=== PATIENT | female | born 1950 | race Caucasian/White ===

== ENCOUNTER 2016-10-23 16:25 | Observation (INO) ==
[2016-10-23] MEDS ORDERED: Ipratropium/Albuterol Neb 3 ML IH ONE (16:47)
--- NOTE | 2016-10-23 16:49 | Emergency Department Note ---
Disposition Clinical Impression: Exertional dyspnea, Anginal equivalent Disposition: Admitted As Inpatient Condition: Fair Referrals: Eriberto Covarrubias DO [Primary Care Provider] - Forms: ED Satisfaction Letter Time of Disposition: 17:38 SOB HPI - General Chief Complaint: ED Shortness of Breath/Dyspnea Stated Complaint: SENT FROM pcp soila CHEST TIGHTNESS Time Seen by Provider: 10/23/16 16:37 Source: patient Limitations: no limitations Nursing Notes Reviewed: Yes Vital Signs Reviewed: Yes - History of Present Illness Patient has had exertional dyspnea for the last several days. Seen by the primary care provider and sent in for evaluation. Patient does have a history of asthma however on arrival her lungs are essentially clear. She has no recent history of cardiac workup. She has no history of heart attack in the past. Pt Subjective Complaint: shortness of breath Onset (ago): day(s) Severity: moderate Consistency/Duration: constant Improves with: nothing Worsens with: exertion Known history of: asthma Associated symptoms: Reports: cough. Denies: chest pain, pain with inspiration - Related Data Home Medications Medication Instructions Recorded Confirmed Citalopram 09/27/15 09/27/15 Ferrous Sulfate 09/27/15 09/27/15 GlipiZIDE 09/27/15 09/27/15 Metformin 09/27/15 09/27/15 Montelukast Sodium 09/27/15 09/27/15 Nexium 09/27/15 09/27/15 Proair Respiclick 09/27/15 09/27/15 Symbicort 09/27/15 09/27/15 Valsartan 09/27/15 09/27/15 Previous Rx's Medication Instructions Recorded Cyclobenzaprine [Flexeril] 10 mg PO TID #15 tablet 09/27/15 MethylPREDNISolone [Medrol] 4 mg PO BIDWM #21 tablet 09/27/15 TraMADol [Ultram] 50 mg PO Q6HR PRN #20 tablet 09/27/15 Azithromycin [Zithromax] 250 mg PO DAILY #6 tablet 07/27/16 Benzonatate [Tessalon] 200 mg PO TID PRN #30 capsule 07/27/16 GuaiFENesin ER [Mucinex] 1,200 mg PO BID #20 tbbp.12hr 07/27/16 Allergies Allergy/AdvReac Type Severity Reaction Status Date / Time aspirin AdvReac See Verified 09/27/15 17:37 Comments Penicillins AdvReac See Verified 09/27/15 17:37 Comments Constitutional: Denies: fever, chills, weakness, weight change Eyes: Denies: eye pain, eye discharge, vision change ENT ED: Denies: ear pain, throat pain, dental pain, hearing loss, epistaxis, congestion, dysphagia Cardiovascular: Denies: chest pain, palpitations, dyspnea on exertion, edema, syncope Respiratory: Reports: cough, dyspnea. Denies: wheezes, hemoptysis, stridor Gastrointestinal: Denies: abdominal pain, nausea, vomiting, diarrhea, constipation, hematemesis, melena, hematochezia Genitourinary: Denies: dysuria, frequency, hematuria, discharge Musculoskeletal: Denies: back pain, neck pain, arthralgia, myalgia Integumentary: Denies: rash, abrasion, lesions Neurological: Denies: headache, weakness, numbness, paresthesias, confusion, abnormal gait, vertigo Psychiatric: Denies: anxiety, depression, suicidal thoughts, homicidal thoughts , auditory hallucinations, visual hallucinations Endocrine: Denies: fatigue Hematological/Lymphatic: Denies: easy bleeding, easy bruising Allergic/Immunologic: Denies: facial swelling, urticaria Past Medical History - Past Medical History Medical history: Reports: asthma, diabetes, hyperlipidemia, hypertension Psychiatric history: Reports: no psych history - Social History Smoking Status: Former smoker Smokeless Tobacco Status: No Alcohol use: Reports: unknown Drug use: Reports: none Physical Exam - General Limitations: no limitations General appearance: alert, in no apparent distress - Head Head exam: atraumatic, normocephalic, normal inspection - Eye Eye exam: Present: normal appearance, PERRL, EOMI - ENT ENT exam: normal exam, normal oropharynx, mucous membranes moist - Neck Neck exam: Present: normal inspection, full ROM, trachea midline - Chest Chest inspection: Present: normal inspection, symmetric chest wall rise - Respiratory Respiratory exam: Present: normal lung sounds bilaterally - Cardiovascular Cardiovascular exam: Present: regular rate, normal rhythm, normal heart sounds - Abdominal Exam Abdominal exam: Present: soft, Non-Tender. Absent: tenderness, distention, guarding, rebound, rigidity - Extremities Exam Extremities exam: Present: normal inspection, full ROM. Absent: tenderness, pedal edema - Expanded Lower Extremity Exam Neurovascular/Tendon exam: Absent: motor deficit, sensory deficit, tendon deficit Gait: observed and normal - Back Exam Back exam: Present: normal inspection, full ROM. Absent: tenderness - Neurological Exam Neurological exam: Present: alert, oriented X3 - Psychiatric Psychiatric exam: Present: normal affect, normal mood - Skin Skin exam: Present: warm, dry, intact, normal color Course - Reevaluation(s) Reevaluation #1: Patient has an allergy to aspirin. Time: 17:37 - Consultations Consultation #1: Discussed with Dr. Thakur, admit. Time: 18:03 Vital Signs Temperature 98.2 F 10/23/16 16:27 Pulse Rate 81 10/23/16 16:27 Respiratory Rate 22 10/23/16 16:27 Blood Pressure 132/86 10/23/16 16:27 O2 Sat by Pulse Oximetry 96 10/23/16 16:27 Temperature 98.2 F 10/23/16 16:27 Pulse Rate 81 10/23/16 17:56 Respiratory Rate 18 10/23/16 17:56 Blood Pressure 193/98 10/23/16 17:56 O2 Sat by Pulse Oximetry 97 10/23/16 17:56 Oxygen Delivery Oxygen Delivery Room Air Shortness of Breath/Dyspnea - Lab Data Result diagrams: 10/23/16 16:48 10/23/16 16:48 Lab Results 10/23/16 10/23/16 10/23/16 Range/Units 16:48 16:48 16:48 WBC 6.4 (4.3-11.1) K/mcL RBC 4.54 (3.82-4.97) M/mcL Hgb 13.5 (11.5-15.4) g/dL Hct 41.8 (35.3-44.9) % MCV 92.1 (83.0-100.0) fL MCH 29.7 (28.0-33.3) pg MCHC 32.3 (31.6-35.5) g/dL RDW 13.8 (11.5-14.5) % Plt Count 132 L (140-400) K/mcL MPV 11.5 (9.4-12.4) fL Immature Gran % 0.5 (0-4) % Seg Neutrophils % 72.0 % Lymphocytes % 17.6 % Monocytes % 8.8 % Eosinophils % 0.8 % Basophils % 0.3 % Neutrophils # 4.6 (1.6-8.9) K/mcL Lymphocytes # 1.1 (0.6-4.6) K/mcL Monocytes # 0.6 (0.0-1.3) K/mcL Eosinophils # 0.1 (0.0-0.6) K/mcL Basophils # 0.0 (0.0-0.2) K/mcL PT 13.3 H (9.4-12.1) Seconds INR 1.2 APTT 32.9 (26.0-36.0) Seconds Sodium 136 (136-145) mEq/L Potassium 4.0 (3.5-4.5) mEq/L Chloride 99 (98-109) mEq/L Carbon Dioxide 24 (19-29) mEq/L BUN 12 (7-20) mg/dL Creatinine 0.72 (0.57-1.11) mg/dL Est GFR ( Amer) > 60 (> 60) Est GFR (Non-Af Amer) > 60 (> 60) BUN/Creatinine Ratio 17 (6-26) Glucose 138 H (70-99) mg/dL Calculated Osmolality 284 (280-300) Calcium 9.0 (8.6-10.8) mg/dL Troponin I (0-0.03) ng/mL B-Natriuretic Peptide (0-100) pg/mL 10/23/16 10/23/16 Range/Units 16:48 16:48 WBC (4.3-11.1) K/mcL RBC (3.82-4.97) M/mcL Hgb (11.5-15.4) g/dL Hct (35.3-44.9) % MCV (83.0-100.0) fL MCH (28.0-33.3) pg MCHC (31.6-35.5) g/dL RDW (11.5-14.5) % Plt Count (140-400) K/mcL MPV (9.4-12.4) fL Immature Gran % (0-4) % Seg Neutrophils % % Lymphocytes % % Monocytes % % Eosinophils % % Basophils % % Neutrophils # (1.6-8.9) K/mcL Lymphocytes # (0.6-4.6) K/mcL Monocytes # (0.0-1.3) K/mcL Eosinophils # (0.0-0.6) K/mcL Basophils # (0.0-0.2) K/mcL PT (9.4-12.1) Seconds INR APTT (26.0-36.0) Seconds Sodium (136-145) mEq/L Potassium (3.5-4.5) mEq/L Chloride (98-109) mEq/L Carbon Dioxide (19-29) mEq/L BUN (7-20) mg/dL Creatinine (0.57-1.11) mg/dL Est GFR ( Amer) (> 60) Est GFR (Non-Af Amer) (> 60) BUN/Creatinine Ratio (6-26) Glucose (70-99) mg/dL Calculated Osmolality (280-300) Calcium (8.6-10.8) mg/dL Troponin I 0.05 H* (0-0.03) ng/mL B-Natriuretic Peptide 1438 H (0-100) pg/mL - Radiology Data Radiology results reviewed: Yes I reviewed the patient's radiology results. - EKG Data EKG attestation: Yes I reviewed and interpreted this EKG. EKG shows normal: Reports: sinus rhythm Rate: Reports: normal Rhythm: Reports: NSR Interpretation: Reports: no acute changes
[2016-10-23 17:01] LABS: Basophils % 0.3 %; Eosinophils # 0.1 K/mcL (0.0-0.6); Eosinophils % 0.8 %; Hematocrit 41.8 % (35.3-44.9); Hemoglobin 13.5 g/dL (11.5-15.4); Immature Granulocytes % 0.5 % (0-4); Lymphocytes # 1.1 K/mcL (0.6-4.6); Lymphocytes % 17.6 %; Mean Corpuscular HGB Conc 32.3 g/dL (31.6-35.5); Mean Corpuscular Hemoglobin 29.7 pg (28.0-33.3); Mean Corpuscular Volume 92.1 fL (83.0-100.0); Mean Platelet Volume 11.5 fL (9.4-12.4); Monocytes # 0.6 K/mcL (0.0-1.3); Monocytes % 8.8 %; Neutrophils # 4.6 K/mcL (1.6-8.9); Platelet Count 132 K/mcL (140-400); Red Blood Count 4.54 M/mcL (3.82-4.97); Red Cell Distribution Width 13.8 % (11.5-14.5)
[2016-10-23 17:07] LABS: INR 1.2; Prothrombin Time 13.3 Seconds (9.4-12.1)
[2016-10-23 17:10] LABS: Activated Partial Thrombo Time 32.9 Seconds (26.0-36.0)
[2016-10-23 17:20] LABS: BUN/Creatinine Ratio 17 (6-26); Blood Urea Nitrogen 12 mg/dL (7-20); Carbon Dioxide 24 mEq/L (19-29); Chloride 99 mEq/L (98-109); Glucose 138 mg/dL (70-99); Osmolality,Calculated 284 (280-300); Sodium 136 mEq/L (136-145); eGFR For African Americans > 60 (> 60); eGFR For Non-African Americans > 60 (> 60)
[2016-10-23] MEDS ORDERED: Valsartan 160 MG TABLET PO STA (17:41)
[2016-10-23] MEDS ORDERED: Naloxone 0.4 MG/ML INJ IVP PRN (21:19)
[2016-10-23] MEDS ORDERED: *HR* HYDROcodone/Acet 5/325 mg TABLET PO PRN (21:19)
[2016-10-23] MEDS ORDERED: Ipratropium/Albuterol Neb 3 ML IH PRN (21:23)
[2016-10-23] MEDS ORDERED: methylPREDNISolone 125 MG/2 ML VIAL IVP ONE (21:23)
[2016-10-23] MEDS ORDERED: Dextrose Gel 15 GM PO PRN ×2 (21:24)
[2016-10-23] MEDS ORDERED: D5% in Water 1,000 ML IV PRN (21:24)
[2016-10-23] MEDS ORDERED: *HR* Dextrose 50 % in Water (Syg) 50 ML SYRINGE IVP PRN (21:24)
--- NOTE | 2016-10-23 21:30 | Internal Med History&Physical ---
Date of Encounter: 10/23/16 Time of Encounter: 21:30 Assessment and Plan (1) Exertional dyspnea Current visit: Yes Status: Acute Given clinical presentation and reported history-will rule out cardiac etiology Follow up 2D echo-concern for CHF Follow up cardiology consult Given history of asthma and wheezing, will treat with one time dose of Methylprednisolone continue bronchodilator support continue O2 supplementation monitor O2 sat NPO after midnight for possible further cardiac work up in am (2) Elevated troponin Current visit: Yes Status: Acute unlikely ACS however given clinical findings of exertional dyspnea in the setting of bilateral lower extremity edema and elevated BNP-will rule out cardiac etiology follow up serial TNI no chest pain reported throughout the course of admission no EKG changes reported continue to monitor (3) Hypertension Current visit: Yes Status: Acute Will start Hydralazine in addition to home medications If echo consisted with CHF, consider starting Lasix continue home medications closely monitor BP Qualifiers: Hypertension type: essential hypertension Qualified Code(s): I10 - Essential (primary) hypertension (4) Diabetes mellitus Current visit: Yes Status: Acute will hold oral antihyperglycemic agents at this time monitor fingerstick and blood glucose started low dose correctional insulin ss as needed Qualifiers: Diabetes mellitus type: type 2 Diabetes mellitus complication status: with unspecified complications Diabetes mellitus shelter insulin use: without shelter use Qualified Code(s): E11.8 - Type 2 diabetes mellitus with unspecified complications Internal Medicine - H&P: HPI Chief complaint: shortness of breath Admitted From: Home Plans for Post Hospital Care: Home History of present illness: Ms. Prescott is a 66 year old female with PMH of DM, HTN, HLD, and asthm who was sent to the ER by her PCP for evaluation of worsening shortness of breath. Patient states for the last 5 days she has noted significant deterioration of her respiratory status. States even with the mildest exertion, she becomes short of breath. Patient also reports of worsening bilateral lower extremity edema in the last few days along with the exertional dyspnea. Denies any history of heart disease. Only reports of dyspnea with exertion but denies any chest pain, palpitations at this time. During my evaluation, patient was noted to have bilateral expiratory wheezing even with the slightest movement. She was able to communicate appropriately and reported of feeling better since admission. Denies any abd pain, n/v, fever, or chills. Social Hx: former smoker (quit 15 years ago) Past Med Surg Social Fam HX - Past Medical History Medical history: asthma, diabetes, hyperlipidemia, hypertension Psychiatric history: no psych history - Social History Smoking Status: Former smoker Smokeless Tobacco Status: No Alcohol use: occasionally Drug use: none - Family History Mother Living Status: Hx Family Cancer: Yes (colon cancer) Sister Hx Family Endocrine Disorder: Yes (DM) Internal Medicine - H&P: Meds Albuterol Sulfate [Albuterol Inhaler] 2 puff IH Q4HR PRN 10/23/16 [History] Cetirizine HCl [Zyrtec] 10 mg PO DAILY 10/23/16 [History] GlipiZIDE XL (24 HR) [Glucotrol XL] 10 mg PO DAILY 10/23/16 [History] Montelukast [Singulair] 10 mg PO DAILY 10/23/16 [History] SitaGLIPtin [Januvia] 100 mg PO DAILY 10/23/16 [History] Valsartan/Hydrochlorothiazide [Diovan Hct 320-25 mg Tablet] 1 tab PO DAILY 10/23 [History] Venlafaxine XR (24 HR) [Effexor XR] 75 mg PO DAILY 10/23/16 [History] Allergies aspirin Adverse Reaction (Verified 10/23/16 19:06) Gastrointestinal Upset Penicillins Adverse Reaction (Verified 10/23/16 19:06) See Comments "RESISTANT" All Systems PM: A 10-system review of systems was performed and is negative for pertinent findings except as documented above in the HPI. - Constitutional Constitutional: as per HPI - Constitutional Vitals: Temp Pulse Resp BP Pulse Ox 98.0 F 81 17 180/84 98 10/23/16 19:46 10/23/16 19:46 10/23/16 19:46 10/23/16 19:46 10/23/16 19:59 General appearance: Present: cooperative, A&O X 3, morbidly obese, pleasant, no acute distress, answers questions appropriately - Head Head exam: Present: atraumatic, normocephalic - Eye Eye exam: Present: normal appearance, conjuntiva pink, sclera anicteric - Respiratory Respiratory exam: Present: wheezes (bilateral expiratory wheezing, no crackles or rales). Absent: rales, rhonchi, tachypnea - Cardiovascular Cardiovascular exam: Present: RRR, +S1, +S2. Absent: diastolic murmur, JVD, systolic murmur - GI/Abdominal GI/Abdominal exam: Present: normal bowel sounds, soft. Absent: distended, tenderness - Extremities Exam Extremities exam: Present: pedal edema (mild bilateral pedal edema), warm, radial pulses palpable and symetrical. Absent: calf tenderness, tenderness - Neurological Exam Neurological exam: Present: alert, oriented X3, no focal deficits - Psychiatric Psychiatric exam: Present: normal affect, normal mood Internal Med - H&P Results - Labs CBC & Chem 7: 10/23/16 16:48 10/23/16 16:48
[2016-10-24] MEDS: Insulin LISPRO 300 UNITS/3 ML VIAL SQ SCH ×4 (00:01→16:49)
[2016-10-24 06:03] LABS: Hematocrit 40.8 % (35.3-44.9); Immature Granulocytes % 0.3 % (0-4); Lymphocytes % 11.5 %; Mean Corpuscular HGB Conc 31.9 g/dL (31.6-35.5); Mean Corpuscular Hemoglobin 29.3 pg (28.0-33.3); Mean Corpuscular Volume 91.9 fL (83.0-100.0); Mean Platelet Volume 12.5 fL (9.4-12.4); Monocytes % 2.7 %; Platelet Count 128 K/mcL (140-400); Red Blood Count 4.44 M/mcL (3.82-4.97); Red Cell Distribution Width 13.9 % (11.5-14.5); Segmented Neutrophils % 85.2 %
[2016-10-24 06:04] LABS: Basophils % 0.3 %; Lymphocytes # 0.4 K/mcL (0.6-4.6); Monocytes # 0.1 K/mcL (0.0-1.3); Neutrophils # 3.1 K/mcL (1.6-8.9)
[2016-10-24 06:18] LABS: BUN/Creatinine Ratio 18 (6-26); Blood Urea Nitrogen 12 mg/dL (7-20); Calcium 9.1 mg/dL (8.6-10.8); Carbon Dioxide 26 mEq/L (19-29); Chloride 101 mEq/L (98-109); Chol/HDL Ratio 3.4 (0-4.9); Cholesterol 152 mg/dL (< 200); Glucose 219 mg/dL (70-99); HDL Cholesterol 45 mg/dL (40-59); LDL Cholesterol,Calculated 93 mg/dL (0-99); Magnesium 1.8 mg/dL (1.6-2.6); Osmolality,Calculated 290 (280-300); Potassium 4.1 mEq/L (3.5-4.5); Sodium 137 mEq/L (136-145); Triglycerides 71 mg/dL (< 150); eGFR For African Americans > 60 (> 60); eGFR For Non-African Americans > 60 (> 60)
[2016-10-24] MEDS ORDERED: hydroCHLOROthiazide 25 MG TABLET PO SCH (09:00)
[2016-10-24] MEDS: Loratadine 10 MG TABLET PO SCH (09:13)
[2016-10-24] MEDS: Venlafaxine XR (24 HR) 75 MG CAP.ER.24H PO SCH ×2 (09:13→12:42)
--- NOTE | 2016-10-24 11:11 | ECHO - Doppler Report ---
Echocardiogram Name: Margoth Prescott Date of Study: 10/24/2016 Date: 1950 Ht: 68.0 in Medical Record#: [id number] Age: 66 Wt: 244.0 lb Gender: Female BSA: 2.22 Order #: [id number] Location: [facility] Room #: 3B43 Reading Physician: Kit Soto DO, DESTIN VILLAGOMEZ FASNC [employer] Special Education Teacher: Dayana Valencia Ordering Physician: Ingrid Tang MD Primary Physician: Dinesh Covarrubias DO Indications: Congestive heart failure Impressions: Mildly dilated and globally hypokinetic left ventricle. LVEF 30%. Moderate left ventricular diastolic dysfunction. Atypical septal motion consistent with bundle branch block. Right ventricle appears to be normal in size with mild hypokinesis. Mildly dilated left ventricle. Moderate-severe pulmonary hypertension. Estimated RVSP is 55-60 mmHg, including an estimated RA pressure of 15-20 mmHg. Mitral valve appears moderately thickened with reduced mobility. Consider a repeat limited study with attention to the MV, including color and CW Doppler to evaluate for regurgitation and stenosis. Left Ventricular Wall Motion: Rest Echo Findings The apex, apical inferior, mid inferior, basal inferior, apical anterior, mid anterior, basal anterior, apical septal, mid inferior septal, basal inferior septal, apical lateral, mid anterior lateral, basal anterior lateral, mid anterior septal, mid inferior lateral, basal anterior septal and basal inferior lateral miller were hypokinetic. Findings: Study Quality * Technically adequate exam. ECG Findings * Sinus rhythm with BBB. Left Ventricle * LVEF 30%. * Normal LV wall thickness and function. * Mildly dilated left ventricle with severe global hypokinesis. * Moderate left ventricular diastolic dysfunction. * Atypical septal motion consistent with bundle branch block. Right Ventricle * Right ventricle appears to be normal in size with mild hypokinesis. Left Atrium * Moderate to severely dilated left atrium. Right Atrium * Moderately dilated right atrium. Interatrial Septum * Interatrial septum not well evaluated. Aortic Valve * Aortic valve not well visualized. * Grossly, the aortic valve leaflets appear mildly sclerotic. * No aortic regurgitation. * No aortic stenosis. Mitral Valve * Moderately thickened mitral valve leaflets. * Trace mitral regurgitation, which was not well evaluated. * No mitral stenosis. Tricuspid Valve * Normal tricuspid valve structure and function. * Trace tricuspid regurgitation. * Moderate-severe pulmonary hypertension. * Estimated RVSP is 55-60 mmHg. * Estimated RA pressure is 15-20 mmHg. Pulmonic Valve * Pulmonic valve not well visualized. Aorta * Normally sized aortic root. Pericardium * The pericardium appears normal. IVC * The IVC is dilated. * < 50% respiratory change. Pulmonary Artery * Normal visualized portions of the main pulmonary artery. History Hypertension Diabetes Rheumatic Fever Congestive Heart Failure Valvular Disease Measurements: BP: 169/ 77 2D Normal Values RVIDd: 3.30 cm <2.7 cm IVSd: 1.10 cm 0.6 - 1.0 cm LVIDd: 5.80 cm 3.7 - 5.6 cm LVPWd: 1.30 cm 0.6 - 1.1 cm LVIDs: 4.70 cm 1.5 - 3.6 cm AO: 2.90 cm < 4.0 cm LA: 4.50 cm 2.0 - 4.0cm %FS: 19.00 cm >25 % LA volume: 86 Mitral Valve Peak E:1.18 m/sec Peak A:.73 m/sec E/A Ratio:1.6 Peak E' Lat Javi:6.34 cm/s Peak E' Med Javi:4.97 cm/s E/E' Lat Ratio:18.6 E/E' Med Ratio:23.7 Tricuspid Valve TV Regurg Peak Grad: 40.00mmHg TV Regurg Peak Javi: 3.16m/sec Updated by Kit Soto DO, FACJacque, DESTIN, EMILIANA on 10/24/2016 11:03:38 AM electronically signed on 10/24/2016 11:08:29 AM with status of Final Wall Motion Perez: 1=Normal, 2=Hypokinesis, 3=Akinesis, 4=Dyskinesis, 5=Aneurysmal, 6=Hyperkinetic, X=Not Visualized (Blank)=Missing
--- NOTE | 2016-10-24 11:57 | Electrocardiograph Report ---
[facility] Test Date: 2016-10-23 Pat Name: WILLIE DE LA CRUZ Department: 103 Room: 3B43 Gender: F Row Boss Hoeing: RAVI : 1950 Requested By: Chalino Lozano Order Number: [id number] Reading MD: Jose Colmenares MD Measurements Intervals [place] Rate: 85 P: 87 MO: 183 QRS: -45 QRSD: 118 T: 83 QT: 391 QTc: 434 Interpretive Statements SINUS RHYTHM MARKED LEFT AXIS DEVIATION MODERATE VOLTAGE CRITERIA FOR LVH, CONSIDER NORMAL VARIANT POOR R WAVE PROGRESSION Electronically Signed On 10-24-16 11:56:27 EST by Jose Colmenares MD
[2016-10-24] MEDS: Furosemide 40 MG/4 ML VIAL IVP SCH (13:40)
--- NOTE | 2016-10-24 17:22 | Cardiology Consult Note ---
Date of Encounter: 10/24/16 Time of Encounter: 11:00 Assessment and Plan (1) Systolic heart failure Current Visit: Yes Status: Acute Patient presents with worsening SOB and was found to have reduced LVEF, 30%. She has no prior echo for comparison. We are presuming this is new. Her symptoms have been ongoing for a month but particularly worse over the past several days. I recommend [facility]. This will be discussed with the patient. For now, I will stop her HCTZ and start IV lasix. She will be started on BB and low dose aspirin. Qualifiers: Heart failure chronicity: acute Qualified Code(s): I50.21 - Acute systolic (congestive) heart failure (2) Elevated troponin Current Visit: Yes Status: Acute Patient has mild elevation of troponins which are reflective of acute systolic heart failure. (3) Pulmonary hypertension Current Visit: Yes Status: Acute Echo demonstrated moderately severe pulmonary hypertension. She has no known prior history and no prior echo for comparison. A CTA did not reveal PE. We have ordered a limited echo for detailed evaluation of her mitral valve. Otherwise, this may be in part related to systolic heart failure, elevated EDP and pulmonary venous hypertension. Discussion w patient/family: The assessment and plan as outlined above was discussed with the patient and/or family members who expressed understanding and agreement. All questions were answered. Thank you for involving us in the care of your patient. Please call with any questions. History of Present Illness Consult date: 10/24/16 Requesting physician: Ingrid Tang Consult reason: SOB Chief complaint: SOB History of present illness: Ms. Prescott is a 66 year old female who presents with worsening SOB over the past month. She has noticed dyspnea with minimal exertion. She denies chest pain. She went to her PCP for management and was sent to ER. Studies demonstrate flat elevation of troponin, elevated BNP 1400, normal renal function and cardiomegaly on CXR. Her weight has increased 25 pounds since July. She is saturating 92% on 2L and BP was initially elevated with SBP 190. Past Med Surg Social Fam HX - Past Medical History Attestation: Yes The following information was validated with the patient. Medical history: asthma, diabetes, hyperlipidemia, hypertension Psychiatric history: no psych history - Social History Smoking Status: Former smoker Smokeless Tobacco Status: No Alcohol use: occasionally Drug use: none - Family History Mother Living Status: Hx Family Cancer: Yes (colon cancer) Sister Hx Family Endocrine Disorder: Yes (DM) Medications and Allergies Albuterol Sulfate [Albuterol Inhaler] 2 puff IH Q4HR PRN 10/23/16 [History] Cetirizine HCl [Zyrtec] 10 mg PO DAILY 10/23/16 [History] GlipiZIDE XL (24 HR) [Glucotrol XL] 10 mg PO DAILY 10/23/16 [History] Montelukast [Singulair] 10 mg PO DAILY 10/23/16 [History] SitaGLIPtin [Januvia] 100 mg PO DAILY 10/23/16 [History] Valsartan/Hydrochlorothiazide [Diovan Hct 320-25 mg Tablet] 1 tab PO DAILY 10/23 [History] Venlafaxine XR (24 HR) [Effexor XR] 75 mg PO DAILY 10/23/16 [History] Allergies aspirin Adverse Reaction (Verified 10/23/16 19:06) Gastrointestinal Upset Penicillins Adverse Reaction (Verified 10/23/16 19:06) See Comments "RESISTANT" All Systems Review: A 10-system review of systems was performed and is negative for pertinent findings except as documented above in the HPI. Physical Examination Vital Signs, Last 4 Hours Temp Pulse Resp BP Pulse Ox 10/24/16 15:37 97.7 F 82 18 167/88 94 L General: Conversant, No Apparent Distress HEENT: Mucus Membranes Moist Neck: Other (JVP difficult to assess due to increased neck girth) Cardiac: Reg Rate and Rhythm, Normal S1 and S2, No Murmur Lungs: Other (diminished breath sounds throughout, no audible rales or rhonchi) Neuro: Alert and responsive, No focal deficits noted Abdomen: Soft, Other (bowel sounds are present) Extremities: Other (mild-moderate bilateral LE edema) Results 10/24/16 04:53 10/24/16 04:53 Lab Results 10/23/16 10/24/16 10/24/16 21:29 04:53 04:53 WBC 3.7 L Hgb 13.0 Hct 40.8 Plt Count 128 L Sodium 137 Potassium 4.1 Chloride 101 Carbon Dioxide 26 BUN 12 Creatinine 0.68 Glucose 219 H Calcium 9.1 Magnesium 1.8 Troponin I 0.05 H* 10/24/16 04:53 WBC Hgb Hct Plt Count Sodium Potassium Chloride Carbon Dioxide BUN Creatinine Glucose Calcium Magnesium Troponin I 0.04 H* - Imaging and Cardiology Chest Xray: report reviewed Echo: report reviewed, image reviewed - EKG Interpretation EKG results cardiology: personally reviewed (No acute ECG findings) Consult Discharge Plan - Plan Referrals: Eriberto Covarrubias DO [Primary Care Provider] -
--- NOTE | 2016-10-24 17:58 | Internal Med Progress Note ---
Date of Encounter: 10/24/16 Time of Encounter: 17:55 - Assessment and plan (1) Systolic heart failure Current Visit: Yes Status: Acute Assessment and plan: Patient presented with exertional dyspnea and lower leg swelling. Echo today shows reduced LVEF of 30%, no previous echo to compare. Denies any history of CHF or CAD in the past. Patient needs ischemic evaluation to rule out ischemic cardiomyopathy. Patient nothing by mouth for tonight. Plan for cardiac catheterization tomorrow. Appears euvolemic at this time, we will continue the 40 IV daily Lasix. Qualifiers: Heart failure chronicity: acute Qualified Code(s): I50.21 - Acute systolic (congestive) heart failure (2) Hypertension Current Visit: Yes Status: Chronic Qualifiers: Hypertension type: essential hypertension Qualified Code(s): I10 - Essential (primary) hypertension (3) Pulmonary hypertension Current Visit: Yes Status: Acute Assessment and plan: Given moderate Pulmonary Hypertension on the echo and new onset CHF, will order CT to rule out PE. COPD may also give pulmonary hypertension, however will rule out acute versus chronic PE at this time. oxygen prn via NC to maintain sats >88 to 92% (4) Diabetes mellitus Current Visit: Yes Status: Chronic Qualifiers: Diabetes mellitus type: type 2 Diabetes mellitus complication status: with unspecified complications Diabetes mellitus joint terminal attack controller insulin use: without fpc use Qualified Code(s): E11.8 - Type 2 diabetes mellitus with unspecified complications - Time Spent With Patient 25 - 35 minutes - Subjective Interval history: Patient is seen at the bedside, denies any chest pain, reports that shortness of breath is much better than yesterday. Denies any nausea or vomiting. Reports that the leg swelling has also decreased a little - Constitutional Vitals: Temp Pulse Resp BP Pulse Ox 97.7 F 82 18 167/88 94 L 10/24/16 15:37 10/24/16 15:37 10/24/16 15:37 10/24/16 15:37 10/24/16 15:37 General appearance: Present: cooperative, A&O X 3, morbidly obese, pleasant, no acute distress, answers questions appropriately Exam: Neck supple. Chest bilaterally clear, no added sounds. CVS S1-S2, no murmurs rubs or gallops. Abdomen soft, nontender, bowel sounds are present. Extremities mild bilateral pitting lower leg edema. Internal Medicine: Result - Labs CBC & Chem 7: 10/24/16 04:53 10/24/16 04:53 Labs: Short CBC 10/24/16 Range/Units 04:53 WBC 3.7 L (4.3-11.1) K/mcL Hgb 13.0 (11.5-15.4) g/dL Hct 40.8 (35.3-44.9) % Plt Count 128 L (140-400) K/mcL Neutrophils # 3.1 (1.6-8.9) K/mcL BMP 10/24/16 04:53 Sodium 137 Potassium 4.1 Chloride 101 Carbon Dioxide 26 BUN 12 Creatinine 0.68 Glucose 219 H Calcium 9.1 Cardiac Enzymes 10/23/16 10/24/16 Range/Units 21:29 04:53 Troponin I 0.05 H* 0.04 H* (0-0.03) ng/mL - ABG Interpretation ABG results: PT/INR, D-dimer PT 13.3 Seconds (9.4-12.1) H 10/23/16 16:48 - Impressions Impressions Chest CTA 10/24/16 15:00 IMPRESSION: No evidence of pulmonary embolism. Minimal atelectasis and trace right pleural effusion. Nodular hepatic surface most likely Cirrhotic morphology. D/ / Clem Burns MD / Clem Burns MD Interpreting Provider: Clem Burns MD Consult Discharge Plan - Plan Referrals: Eriberto Covarrubias DO [Primary Care Provider] -
[2016-10-24] MEDS ORDERED: Insulin LISPRO 300 UNITS/3 ML VIAL SQ SCH (21:00)
[2016-10-25] MEDS: Insulin LISPRO 300 UNITS/3 ML VIAL SQ SCH ×4 (00:58→17:57)
--- NOTE | 2016-10-25 08:12 | ECHO - Doppler Report ---
Limited Echocardiogram Name: Margoth Prescott Date of Study: 10/24/2016 Date: 1950 Ht: 68.0 in Medical Record#: [id number] Age: 66 Wt: 244.0 lb Gender: Female BSA: 2.22 Order #: [id number] Location: [facility] Room #: [id number] Reading Physician: Deepak Garcia MD, [facility] Lumber Buyer: Magali Dong Ordering Physician: Fer Wylie CNP Primary Physician: None Indications: Evaluate mitral valve for stenosis and regurg Impressions: Complete echocardiogram was performed earlier this same day. Please see that report. This is a limited study to further assess the mitral valve. Moderately thickened/calcified mitral valve leaflets. No mitral stenosis. Trace to mild mitral regurgitation. Findings: Study Quality * Technically adequate exam. * Complete echocardiogram was performed earlier this same day. Please see that report. This is a limited study to further assess the mitral valve. Mitral Valve * Moderately thickened/calcified mitral valve leaflets. * No mitral stenosis. * Trace to mild mitral regurgitation. History Hypertension Diabetes Rheumatic Fever 10/24/2015 a Previous Echo was performed. BP: 117/ 51 Updated by Deepak Garcia MD, [facility] on 10/25/2016 8:05:36 AM electronically signed on 10/25/2016 8:06:45 AM with status of Final
[2016-10-25] MEDS: Loratadine 10 MG TABLET PO SCH (08:28)
[2016-10-25] MEDS: Venlafaxine XR (24 HR) 75 MG CAP.ER.24H PO SCH (08:28)
[2016-10-25] MEDS: Furosemide 40 MG/4 ML VIAL IVP SCH (08:28)
[2016-10-25 09:23] LABS: BUN/Creatinine Ratio 20 (6-26); Blood Urea Nitrogen 14 mg/dL (7-20); Calcium 9.2 mg/dL (8.6-10.8); Carbon Dioxide 25 mEq/L (19-29); Chloride 99 mEq/L (98-109); Glucose 180 mg/dL (70-99); Osmolality,Calculated 289 (280-300); Potassium 3.6 mEq/L (3.5-4.5); Sodium 137 mEq/L (136-145); eGFR For African Americans > 60 (> 60); eGFR For Non-African Americans > 60 (> 60)
[2016-10-25] MEDS ORDERED: Nitroglycerin 1,000 MCG/10 ML VIAL IV ONE (10:13)
[2016-10-25] MEDS ORDERED: 0.9 % Sodium Chloride 1,000 ML ONE ×2 (10:13→10:38)
[2016-10-25] MEDS ORDERED: Heparin 1,000 UNITS/500 mL NS 500 ML ONE (10:13)
[2016-10-25] MEDS ORDERED: Verapamil 5 MG/2 ML VIAL ONE (10:13)
[2016-10-25] MEDS ORDERED: *HR* Heparin 10,000 UNIT/10 ML VIAL ONE (10:13)
--- NOTE | 2016-10-25 10:20 | Pre-Sedation Evaluation ---
Pre-sedation evaluation - Pre-sedation checklist Date of procedure: 10/25/16 Procedure: [facility] Recent Vitals: Last Vital Signs Temp 97.7 F 10/25/16 07:14 Pulse 81 10/25/16 07:14 Resp 16 10/25/16 07:14 BP 171/74 10/25/16 07:14 Pulse Ox 92 L 10/25/16 07:14 H&P (including ROS) documented in medical record: Yes Previous reaction to sedatives/anesthetics: Unknown Dietary Status: NPO after Midnight Dentition: No loose teeth or bridges ASA Classification *see protocol: CLASS II-Mild systemic disease Plan of Care: Pt appropriate candidate for procedure/moderate/conscious sedation , Risks/benefits of procedure/sedation discussed w/ patient/family
--- NOTE | 2016-10-25 10:24 | Cardiology Progress Note ---
Date of Encounter: 10/25/16 Time of Encounter: 10:00 Assessment and Plan (1) Systolic heart failure Current Visit: Yes Status: Acute Patient presents with newly discovered systolic heart failure, EF 30%. Her symptoms have been ongoing for a month but particularly worse over the past several days. I recommend [facility]. The R/B/A of the procedure were discussed in detail. The patient expressed understanding and verbalized agreement. Renal function is normal. She will continue IV lasix, BB and aspirin for now. Qualifiers: Heart failure chronicity: acute Qualified Code(s): I50.21 - Acute systolic (congestive) heart failure (2) Elevated troponin Current Visit: Yes Status: Acute Patient has mild elevation of troponins which are reflective of acute systolic heart failure. (3) Pulmonary hypertension Current Visit: Yes Status: Acute Echo demonstrated moderately severe pulmonary hypertension. She has no known prior history and no prior echo for comparison. A CTA did not reveal PE. The limited echo did not show significant pathology of the mitral valve. I suspect the pulmonary hypertension, is in part due to systolic heart failure, elevated EDP and pulmonary venous hypertension. I recommend outpatient Pulmonary evaluation. Discussion w patient/family: The assessment and plan as outlined above was discussed with the patient and/or family members who expressed understanding and agreement. All questions were answered. Thank you for involving us in the care of your patient. Please call with any questions. Subjective Principal diagnosis: Systolic CHF Interval history: Ms. Prescott is feeling much better today. Her breathing has improved. She is not having chest pain. No acute overnight events. Objective Vital Signs, Last 4 Hours Temp Pulse Resp BP Pulse Ox 10/25/16 07:14 97.7 F 81 16 171/74 92 L General: Conversant, No Apparent Distress HEENT: Mucus Membranes Moist Neck: No JVD Cardiac: Reg Rate and Rhythm, Normal S1 and S2, Other (Soft systolic murmur LSB) Lungs: Other (Mildly diminished breath sounds) Neuro: Alert and responsive, No focal deficits noted Abdomen: Soft, Other (bowel sounds present) Extremities: Other (mild bilateral LE edema) Results 10/24/16 04:53 10/25/16 09:00 Lab Results 10/25/16 09:00 Sodium 137 Potassium 3.6 Chloride 99 Carbon Dioxide 25 BUN 14 Creatinine 0.70 Glucose 180 H Calcium 9.2 - Imaging and Cardiology Echo: report reviewed, image reviewed Other Results: CTA report reviewed - EKG Interpretation EKG results cardiology: other (24h telemetry reviewed; averge heart rate 80's, no concerning dysrhythmia) Consult Discharge Plan - Plan Referrals: Eriberto Covarrubias DO [Primary Care Provider] -
[2016-10-25] MEDS ORDERED: *HR* Midazolam HCl 2 MG/2 ML VIAL ONE ×2 (10:37→11:00)
[2016-10-25] MEDS ORDERED: *HR* FentaNYL (PF) 100 MCG/2 ML VIAL ONE (10:38)
--- NOTE | 2016-10-25 11:22 | Invasive Diagnostic Lab Proc ---
Name: Margoth Prescott Date of Study: 10/25/2016 Date: 1950 Ht: 68.1in Medical Record#: [id number] Age: 66 Wt: 244.27lb Gender: Female BSA: 2.23 Order #: [id number] BMI: 37.02 Physicians Procedure Physician: Jose Colmenares MD, FACC Referring MD: Dinesh Covarrubias DO Referring MD: Staff Name Position Time In Maya Khan RT (R) Monitor 10:35 AM Aubrey Cohenn RT (R) Scrub 10:35 AM Omaira Jorge RN Systems Protection Technician 10:35 AM Indications Indication Non-Stemi Procedures Performed Procedure L HRT ARTERY/VENTRICLE ANGIO Pre-Procedure Checklist Informed consent is complete signed and on chart. H\\T\\P is on chart. ID band is on and ID verified with patient. Patient NPO for procedure The procedure was described for the patient and questions were answered. Blood Pressure: 201/90 ECG is on chart. Plan of Care Patient will tolerate the procedure without complications. Adequate level of comfort will be maintained. Hemodynamics will remain stable Patient will recover from procedure without complications. Respiratory function will be maintained. Cardiac rhythm will remain stable. Patient temperature will be maintained. Patient and/or family have verbalized understanding of the procedure. Patient Education Chief Complaint/Reason for Test: Cardiac Cath Developmental Category: Geriatric (65+ years) Developmentally Appropriate for Age: Yes Learning Barriers: None Education Needs: Procedure Education Method: Verbal Information Taught: Cardiac Cath Educational Evaluation: Able to repeat information Intravenous Access Time IV Size Location DC'd Fluid/Drip Rate Units RN 10:42 AM 18g 1 10/24" Patent On Arrival Lt Antecubital 0.9NaCl 25 ml/hr Omaira Jorge RN Allergies NKDA Vital Signs Time BP (mmHg) HR (bpm) O2 Sat. RR (bpm) LOC 10:35 AM / % 5 = Fully awake and oriented or at pre-proc level 10:35 AM / % 4 = Oriented but drowsy 10:50 AM / % 4 = Oriented but drowsy 10:42 AM 201 / 90 83 99 % 25 10:46 AM 158 / 60 80 98 % 31 10:52 AM 185 / 74 77 97 % 25 10:56 AM 191 / 83 80 98 % 18 11:02 AM 179 / 90 78 96 % 37 11:06 AM 192 / 86 84 96 % 25 Procedural Medications Time Medication Dose Units Method Given By 10:42 AM Oxygen 2 L/min nasal cannula Omaira Jorge RN 10:42 AM Versed 2 mg Intravenous Omaira Jorge RN 10:42 AM Fentanyl 50 mcg Intravenous Omaira Jorge RN 10:55 AM Lidocaine 2% 0.5 ml Subcutaneous Jose Colmenares MD, FACC 10:56 AM Heparin 4000 units Nitroglycerin 200 mcg Verapamil 2.5 mg Intraarterial Jose Colmenares MD, FAC 11:01 AM Versed 2 mg Intravenous Omaira Jorge RN 11:01 AM Fentanyl 25 mcg Intravenous Omaira Jorge RN ASA Classification: CLASS II- Mild systemic disease (i.e. well-controlled diabetes, hypertension, asthma, cigarette smoking) Ai Score Preprocedure Postprocedure Activity 2- Moves 4 extremities sustained head lift Activity 2- Moves 4 extremities sustained head lift Circulation 2- SBP +/= 20 points of pre-anesthetic level Circulation 2- SBP +/= 20 points of pre-anesthetic level Consciousness 2- Awake and alert oriented x 3 Consciousness 2- Awake and alert oriented x 3 O2 Saturation 2- Able to maintain O2 satruation of 92% on room air O2 Saturation 2- Able to maintain O2 satruation of 92% on room air Respiratory 2- Able to deep breathe and cough well Respiratory 2- Able to deep breathe and cough well Total Score 10 Total Score 10 Contrast Agent: Isovue Diagnostic Contrast: 69 ml Total Contrast: 69 ml Fluoro Dose: 166 mGy Procedure Log Time Note Enter By 10:34 AM CathStat 10:34 AM Pt arrived to laborer tin can 2 at 10:34 twilson 10:35 AM Physician arrived 10:35 twilson 10:35 AM Meet and ru completed twilson 10:35 AM Sign in performed according to hospital policy. twilson 10:35 AM Procedure start 10:35 twilson 10:35 AM ASA Class CLASS II- Mild systemic disease (i.e. well-controlled diabetes, hypertension, asthma, cigarette smoking) twilson 10:35 AM Patient charges- Angio tray pack, Navilyst 3mm J, Pulse Oximetry and ACIST tubing and transducer twilson 10:35 AM IV Supplies used: J loop Angio Cath. twilson 10:35 AM Maya Khan RT (R) Position: Monitor Time in: 10:35 twilson 10:35 AM Vicki, Edda RT (R) Position: Scrub Time in: 10:35 twilson 10:35 AM Omaira Jorge RN Position: Systems Protection Technician Time in: 10:35 twilson 10:35 AM Time: 10:35 Patient comfortable and pain free: Yes twilson 10:35 AM Time: 10:35LOC: 5 = Fully awake and oriented or at pre-proc level twilson 10:40 AM Vitals capture started with the following parameters, Patient=Adult, Interval=5 min, Initial Chvavcif=098 mmHg, Deflation Rate=5 mmHg, Cuff placed on Left Arm 10:42 AM HR=83 bpm, YOKO=868/90 mmhg, SpO2=99.0 %, Resp=25 B/min 10:42 AM Time: 10:42 Oxygen on at 2 L/min per nasal cannula by Omaira Jorge RN twilson 10:42 AM Time: 10:42 Versed 2 mg Intravenous Given by Omaira Jorge RN twilson 10:42 AM Time: 10:42 Fentanyl 50 mcg Intravenous Given by Omaira Jorge RN twilson 10:46 AM HR=80 bpm, DUUH=646/60 mmhg, SpO2=98.0 %, Resp=31 B/min 10:49 AM Recorded ECG: HR=70 Condition=Condition 1 10:50 AM Pressure channel 2 zeroed. 10:50 AM Time: 10:35LOC: 4 = Oriented but drowsy twilson 10:50 AM Time: 10:35 Patient comfortable and pain free: Yes twilson 10:52 AM HR=77 bpm, MDMW=996/74 mmhg, SpO2=97.0 %, Resp=25 B/min 10:54 AM Pressure channel 2 zeroed. 10:55 AM Time out performed according to hospital policy twilson 10:55 AM Time: 10:55 0.5 ml Lidocaine 2% to right radial Subcutaneous Given by Jose Colmenares MD, [facility] twilson 10:56 AM HR=80 bpm, WDDH=036/83 mmhg, SpO2=98.0 %, Resp=18 B/min 10:56 AM Access obtained by percutaneous puncture. 6Fr 10cm Terumo Glidesheath sheath placed in right Radial artery. [id number] twilson 10:57 AM Time: 10:56 Patient given 4,000 units Heparin, 200 mcg Nitroglycerin, and 2.5 mg Verapamil Intraarterial by Jose Colmenares MD, [facility] twilson 10:58 AM 5Fr TIG catheter inserted over the wire DN twilson 10:58 AM Wire removed, intact. twilson 10:59 AM 0.035 150cm VSI Brian-Torque wire [id number] twilson 11:00 AM Wire removed, intact. twilson 11:00 AM Recorded Pressure: Ao, HR=81, Condition=Condition 1 (Aorta) Ao 146/91/117 11:00 AM LCA angiography performed in multiple views. twilson 11: AM Catheter removed twilson 11: AM Recorded Pressure: Ao, HR=77, Condition=Condition 1 (Aorta) Ao 133/82/106 11:01 AM 5Fr FR 4 catheter inserted over the wire [facility] twilson : AM Time: 11: Versed 2 mg Intravenous Given by Omaira Jorge RN [facility] 11: AM Time: 11: Fentanyl 25 mcg Intravenous Given by Omaira Jorge RN [facility] 11:02 AM HR=78 bpm, ESNM=954/90 mmhg, SpO2=96.0 %, Resp=37 B/min 11:02 AM RCA angiography performed in multiple views. twilson 11:02 AM Recorded Pressure: Ao, HR=85, Condition=Condition 1 (Aorta) Ao 146/80/113 11:03 AM Catheter removed twilson 11:04 AM 5Fr Pigtail catheter inserted over the wire [facility] twilson 11:04 AM Catheter selectively placed in left ventricle twilson 11:04 AM Wire removed, intact twilson 11: AM Lesion found in Mid LAD. Pre Stenosis: 20 Pre MERLENE Flow: 3 twilson 11:04 AM Recorded Pressure: LV, HR=84, Condition=Condition 1 (Left Ventricle) LV 162/32/51 11:05 AM Mid/Distal Left Anterior Descending Coronary Artery and diagonal branches with 20% stenosis. If graft is supplying this area, % stenosis twilson 11:05 AM Recorded Pressure: LV, Ao, HR=82, Condition=Condition 1 (Left Ventricle) LV 171/18/19, (Aorta) Ao 159/59/107 11:06 AM Bolus angiogram of left Ventricle complete: 10 ml/sec for a total of 35 mls twilson 11:06 AM Time: 10:50 Patient comfortable and pain free: Yes twilson : AM Time: 10:50LOC: 4 = Oriented but drowsy twilson 11:06 AM Catheter removed twilson 11:06 AM HR=84 bpm, HLON=844/86 mmhg, SpO2=96.0 %, Resp=25 B/min 11:06 AM Coronary Dominance: right twilson 11:06 AM Procedure completed at 11:06 twilson 11:07 AM Sign out completed: Radiation Dose 166.04 mGy Fluoro Time: 1.8 Isovue 370 - 200ml contrast 69 ml given by Jose Colmenares MD, [facility]. Complications: NoneConfirmed administered medications: Yes twilson 11:07 AM Isovue 370 - 200ml,1 Bottle(s) used. twilson 11:07 AM Arterial sheath pulled, Vasc Band closure device used and was Successful S/N. twilson 11:08 AM 12 ml air in Vasc Band. twilson 11:08 AM Post Blood Pressure 192/86 twilson 11:08 AM 11:08 Post Pulses Bilateral radial 2+ twilson 11:08 AM Information taught Cardiac Cath and Vasc Band twilson 11:08 AM Education needs Procedure, Plan of Care, and Responsibilities of Patient in Care twilson 11:08 AM Learning barriers :None twilson 11:08 AM Education Methods Verbal twilson 11:09 AM Education evaluation Able to repeat information twilson 11:09 AM Site status No bleeding/hematoma - Rt Wrist as reported by Edda Cohen RT (R) at 11:09 twilson 11:09 AM No family present at this time twilson 11:09 AM Delay to floor No twilson 11:[address] Colmenares spoke to at home. twilson 11:14 AM Report given to Anali RN Pt taken to Room #43. 11:14 twilson 11:15 AM Patient out of room: 11:15 twilson Complications Complication None Hemodynamics Pressures Site Systolic/A Wave Diastolic/V Wave Mean AO 146 91 117 AO 133 82 106 AO 146 80 113 LV 162 32 51 LV 171 18 19 AO 159 59 107 Post Procedure Information Blood Pressure: 192/86 mmHg Post procedural instructions were given Closure Device Time Device Success/Fail 10/25/2016 11:07:00 AM Mechanical Compression Successful Site Checks Time Location Status Staff Sheath In? Note 11:09 AM Rt Wrist No bleeding/hematoma Edda Cohen RT (R) Pulses Time Site Pre-Procedure Post-Procedure Note 10/25/2016 10:46:00 AM Bilateral radial 2+ 11:08:00 AM Bilateral radial 2+ Updated by RT Rebecca (R) on 10/25/2016 11:16:19 AM electronically signed on 10/25/2016 11:17:01 AM with status of Final
--- NOTE | 2016-10-25 17:39 | Internal Med Progress Note ---
Date of Encounter: 10/25/16 Time of Encounter: 17:36 - Assessment and plan (1) Systolic heart failure Current Visit: Yes Status: Acute Assessment and plan: Patient presented with exertional dyspnea and lower leg swelling. Echo today shows reduced LVEF of 30%, no previous echo to compare. Denies any history of CHF or CAD in the past. Patient needs ischemic evaluation to rule out ischemic cardiomyopathy. cardiac catheterization today, follow results. Appears euvolemic at this time, we will continue the 40 IV daily Lasix. Qualifiers: Heart failure chronicity: acute Qualified Code(s): I50.21 - Acute systolic (congestive) heart failure (2) Hypertension Current Visit: Yes Status: Chronic Qualifiers: Hypertension type: essential hypertension Qualified Code(s): I10 - Essential (primary) hypertension (3) Pulmonary hypertension Current Visit: Yes Status: Acute Assessment and plan: Given moderate Pulmonary Hypertension on the echo and new onset CHF, COPD may also give pulmonary hypertension, cTA was done which was negative for PE. oxygen prn via NC to maintain sats >88 to 92% (4) Diabetes mellitus Current Visit: Yes Status: Chronic Qualifiers: Diabetes mellitus type: type 2 Diabetes mellitus complication status: with unspecified complications Diabetes mellitus group home insulin use: without group home use Qualified Code(s): E11.8 - Type 2 diabetes mellitus with unspecified complications - Time Spent With Patient 25 - 35 minutes - Subjective Interval history: Patient is seen at the bedside, denies any chest pain, reports that shortness of breath is much better than yesterday. Denies any nausea or vomiting. Reports that the leg swelling has also decreased , scheduled for [facility] today - Constitutional Vitals: Temp Pulse Resp BP Pulse Ox 97.5 F L 82 16 171/84 94 L 10/25/16 15:02 10/25/16 15:02 10/25/16 15:02 10/25/16 15:02 10/25/16 15:02 General appearance: Present: cooperative, A&O X 3, morbidly obese, pleasant, no acute distress, answers questions appropriately Exam: Neck supple. Chest bilaterally clear, no added sounds. CVS S1-S2, no murmurs rubs or gallops. Abdomen soft, nontender, bowel sounds are present. Extremities mild bilateral pitting lower leg edema. neuro- no focal defecits Internal Medicine: Result - Labs CBC & Chem 7: 10/24/16 04:53 10/25/16 09:00 Labs: BMP 10/25/16 09:00 Sodium 137 Potassium 3.6 Chloride 99 Carbon Dioxide 25 BUN 14 Creatinine 0.70 Glucose 180 H Calcium 9.2 - ABG Interpretation ABG results: PT/INR, D-dimer PT 13.3 Seconds (9.4-12.1) H 10/23/16 16:48 Consult Discharge Plan - Plan Referrals: Eriberto Covarrubias DO [Primary Care Provider] -
[2016-10-26] MEDS: Insulin LISPRO 300 UNITS/3 ML VIAL SQ SCH ×3 (00:11→12:43)
[2016-10-26] MEDS: Loratadine 10 MG TABLET PO SCH (07:59)
[2016-10-26] MEDS: Venlafaxine XR (24 HR) 75 MG CAP.ER.24H PO SCH (08:00)
[2016-10-26] MEDS: Furosemide 40 MG/4 ML VIAL IVP SCH (08:00)
[2016-10-26 11:56] VITALS: BP 157/78
--- NOTE | 2016-10-26 14:00 | Cardiology Progress Note ---
Date of Encounter: 10/26/16 Time of Encounter: 13:54 Assessment and Plan (1) Systolic heart failure Current Visit: Yes Status: Acute Patient presented with newly discovered systolic heart failure, EF 30%. She underwent LHC yesterday demonstrating NICM. She is feeling much better today. I recommend uptitrating her BB and changing IV lasix to PO. She is already on ACEI. I recommend outpatient follow up. We will sign off. Please call with questions. Qualifiers: Heart failure chronicity: acute Qualified Code(s): I50.21 - Acute systolic (congestive) heart failure (2) Pulmonary hypertension Current Visit: Yes Status: Acute Echo demonstrated moderately severe pulmonary hypertension probably in part due to systolic heart failure, elevated LVEDP and pulmonary venous hypertension. A CTA did not reveal PE. I recommend outpatient Pulmonary evaluation. Discussion w patient/family: The assessment and plan as outlined above was discussed with the patient and/or family members who expressed understanding and agreement. All questions were answered. Thank you for involving us in the care of your patient. Please call with any questions. We will sign off. Subjective Principal diagnosis: Systolic CHF Interval history: Ms. Prescott feels well today. Her breathing is much improved. Her right arm is sore today. Objective Vital Signs, Last 4 Hours Temp Pulse Resp BP Pulse Ox 10/26/16 11:54 98.1 F 63 15 157/78 94 L General: Conversant, No Apparent Distress HEENT: Mucus Membranes Moist Neck: No JVD, Normal carotid pulses Cardiac: Other (breath sounds appear clear) Results 10/24/16 04:53 10/25/16 09:00 Renal function normal. - Imaging and Cardiology Cardiac cath: report reviewed - EKG Interpretation EKG results cardiology: other (24h telemetry demonstrates no concerning abnormalities) Consult Discharge Plan - Plan Referrals: Eriberto Covarrubias, [Primary Care Provider] -
--- NOTE | 2016-10-26 14:19 | Discharge Summary ---
Date of Encounter: 10/26/16 Time of Encounter: 10:00 - Discharge Medications Prescriptions: Carvedilol [Coreg] 12.5 mg PO BIDWM #60 tablet Furosemide [Lasix] 40 mg PO DAILY #60 tablet Spironolactone [Aldactone] 25 mg PO DAILY #30 tablet Home Medications: Albuterol Sulfate [Albuterol Inhaler] 2 puff IH Q4HR PRN 10/23/16 [History] Cetirizine HCl [Zyrtec] 10 mg PO DAILY 10/23/16 [History] GlipiZIDE XL (24 HR) [Glucotrol XL] 10 mg PO DAILY 10/23/16 [History] Montelukast [Singulair] 10 mg PO DAILY 10/23/16 [History] SitaGLIPtin [Januvia] 100 mg PO DAILY 10/23/16 [History] Valsartan/Hydrochlorothiazide [Diovan Hct 320-25 mg Tablet] 1 tab PO DAILY 10/23 [History] Venlafaxine XR (24 HR) [Effexor XR] 75 mg PO DAILY 10/23/16 [History] Carvedilol [Coreg] 12.5 mg PO BIDWM #60 tablet 10/26/16 [Rx] Furosemide [Lasix] 40 mg PO DAILY #60 tablet 10/26/16 [Rx] GuaiFENesin ER [Mucinex] 600 mg PO BID PRN #0 tbbp.12hr 10/26/16 [Rx] Naloxone [Narcan] 0.4 mg IVP Q2MIN PRN #0 inj 10/26/16 [Rx] Spironolactone [Aldactone] 25 mg PO DAILY #30 tablet 10/26/16 [Rx] Allergies/Adverse Reactions: Allergies aspirin Adverse Reaction (Verified 10/23/16 19:06) Gastrointestinal Upset Penicillins Adverse Reaction (Verified 10/23/16 19:06) See Comments "RESISTANT" Procedures/tests Complete & Pending: Procedures Performed prior 72 hours Category Date Time Status CTA chest [CT angio chest] [CT] Routine Cat Scan 10/24/16 15:00 Completed CL Cardiac Catheterization [CL] Routine Gauntlet Pairer 10/25/16 00:01 Ordered EV echocardiogram Routine Y 10/24/16 21:01 Completed EV limited echocardiogram Routine Y 10/24/16 12:57 Completed Date of admission: 10/23/16 18:13 Primary care physician: Eriberto Covarrubias Consults: 10/23/16 21:00 Consult to Cardiology [CONS] Routine Comment: Consulting Provider: Cardiology Amirah Reason for Consult: elevated troponin Call Completed: Yes Discharging clinician: Otis Duncan - Patient Status Disposition: Home, Self-Care Condition: Fair - Discharge Instructions Follow Up With: Eriberto Covarrubias DO [Primary Care Provider] - - Diet and Activity Activity: increase activity as tolerated Diet: diabetic diet, low salt diet, other (fluid restriction 1200 ml per day) Hospital course: Ms. Prescott is a 66 year old female with PMH significant for DM type II/ HTN presented with acute exacerbation of CHF echo showed an EF of 30% cardiac markers were negative pt was placed on lisinopril/ BB and aldactone as well as lasix, her condition at the time of discharge is stable she is supposed ot follow up with cardiology Dr Cardona in two weeks, her condition is stable - Time Spent with Patient Total time spent providing and/or coordinating discharge services: Greater than 30 minutes - Constitutional Vitals: Temp Pulse Resp BP Pulse Ox 98.1 F 63 15 157/78 94 L 10/26/16 11:54 10/26/16 11:54 10/26/16 11:54 10/26/16 11:54 10/26/16 11:54 General appearance: Present: cooperative, A&O X 3, morbidly obese, pleasant, no acute distress, answers questions appropriately - Respiratory Respiratory exam: Present: decreased breath sounds - Cardiovascular Cardiovascular exam: Present: RRR, +S1, +S2, +S3 - GI/Abdominal GI/Abdominal exam: Present: normal bowel sounds - Extremities Exam Additional comments: edema ++ - Neurological Exam Neurological exam: Present: oriented X3, reflexes normal, strengths equal and symetr throughout
[2016-10-27] MEDS ORDERED: Furosemide 40 MG TABLET PO SCH (09:00)
--- NOTE | 2016-10-29 09:11 | Invasive Diagnostic Lab ---
Name: Margoth Prescott Date of Study: 10/25/2016 Date: 1950 Ht: 173.0 cm /68.1 in Medical Record#: [id number] Age: 66 Wt: 110.8 kg / 244.27 lb Account/Order#: [id number] Gender: Female BSA: 2.23 Order #: [id number] Fluoro Dose: 166 mGy BMI: 37.02 Procedure Physician: Jose Colmenares MD, FACC Referring MD: Dinesh Covarrubias DO Referring MD: Procedures Performed: LEFT HEART CATH Indications: Non-Stemi Impressions: There is mild one vessel coronary artery disease. There is severe LV Dysfunction EF 25% Recommendations: Optimal medical therapy of patient's disease. Aggressive risk factor modification. History/Risk Factors: Current/Recent Smoker Procedure Access obtained in the right Radial artery by percutaneous puncture Complications: None Contrast: Isovue 69ml Closure Device: Mechanical Compression Hemodynamics: Pressures Site Systolic/ A Wave Diastolic/ V Wave End Diastolic/ Mean HR AO 146 91 117 81 AO 133 82 106 77 AO 146 80 113 85 LV 162 32 51 84 LV 171 18 19 80 AO 159 59 107 85 LV Ventriculography Ejection Method: LV Gram Ejection Fraction: 25% Wall Motion: SHIN Anterobasal Severe Hypokinesis Anterolateral Severe Hypokinesis Apical: Severe Hypokinesis Inferoapical Severe Hypokinesis Inferobasal Severe Hypokinesis Coronary Dominance: right Lesion Findings/Interventions * Left Main Coronary Artery The LMCA is angiographically free of disease. * Left Anterior Descending There is a 20% stenosis in the Mid LAD. The lesion has a MERLENE flow of 3. * Circumflex The Circumflex is angiographically free of disease. The 1st Marginal is angiographically free of disease. * Right Coronary Artery The RCA is angiographically free of disease. The Right PDA is angiographically free of disease. Updated by RT Rebecca (R) on 10/25/2016 11:15:56 AM Jose Colmenares MD, FACC electronically signed on 10/29/2016 9:04:30 AM with status of Final
== END 2016-10-26 15:58 | disposition home or self-care (01) ==
LOC: 3BNU 16:25 → EMEROO 16:25 → 3BNU 18:57
PROVIDERS: ADMIT Internal Medicine; ATTEND Internal Medicine

== ENCOUNTER 2018-05-27 13:24 | Inpatient (IN) ==
[2018-05-27 15:58] LABS: Basophils % 0.4 %; Eosinophils # 0.1 K/mcL (0.0-0.6); Eosinophils % 1.3 %; Hematocrit 47.1 % (35.3-44.9); Hemoglobin 15.6 g/dL (11.5-15.4); Immature Granulocytes % 0.3 % (0-4); Lymphocytes # 0.9 K/mcL (0.6-4.6); Lymphocytes % 12.9 %; Mean Corpuscular HGB Conc 33.1 g/dL (31.6-35.5); Mean Corpuscular Volume 93.6 fL (83.0-100.0); Mean Platelet Volume 11.6 fL (9.4-12.4); Monocytes # 0.8 K/mcL (0.0-1.3); Monocytes % 11.3 %; Neutrophils # 5.3 K/mcL (1.6-8.9); Platelet Count 128 K/mcL (140-400); Red Blood Count 5.03 M/mcL (3.82-4.97); Red Cell Distribution Width 12.7 % (11.5-14.5); Segmented Neutrophils % 73.8 %
[2018-05-27] MEDS ORDERED: predniSONE 20 MG TABLET PO ONE (16:00)
[2018-05-27] MEDS ORDERED: Ipratropium/Albuterol Neb 3 ML IH ONE (16:00)
--- NOTE | 2018-05-27 16:07 | Emergency Department Note ---
Disposition Clinical Impression: Acute exacerbation of chronic obstructive airways disease Disposition: Admitted As Inpatient Condition: Undetermined Time of Disposition: 18:24 SOB HPI - General Chief Complaint: ED Shortness of Breath/Dyspnea Stated Complaint: ANNIA Time Seen by Provider: 05/27/18 16:00 Source: patient Mode of arrival: ambulatory Limitations: no limitations Nursing Notes Reviewed: Yes Vital Signs Reviewed: Yes - History of Present Illness 67-year-old female with history of COPD, hypertension, arrives to the emergency department with shortness of breath. The patient states that she has been expressing worsening shortness of breath over the past couple days. She has been experiencing sputum production as well. She denies any associated hemoptysis. She denies any chest pain. The patient states she has felt so bad that she has not taken her blood pressure medications today. Patient's systolic blood pressure on arrival was 230. The patient denies any other complaints at this time including unilateral leg swelling, history of DVT or PE , recent surgeries or immobilizations. The patient denies any previous history of AK. She does not wear oxygen at home. She is resting comfortably and able to speak in full sentences. Her pulse ox was noted to be 87-91% on room air. She was placed by myself on 2 L nasal cannula. The patient denies any other complaints. - Related Data Home Medications Medication Instructions Recorded Confirmed Albuterol Sulfate [Albuterol 2 puff IH Q4HR PRN 10/23/16 05/27/18 Inhaler] Cetirizine HCl [Zyrtec] 10 mg PO DAILY 10/23/16 05/27/18 GlipiZIDE XL (24 HR) [Glucotrol XL] 10 mg PO DAILY 10/23/16 05/27/18 Montelukast [Singulair] 10 mg PO DAILY 10/23/16 05/27/18 SitaGLIPtin [Januvia] 100 mg PO DAILY 10/23/16 05/27/18 Venlafaxine XR (24 HR) [Effexor XR] 75 mg PO DAILY 10/23/16 05/27/18 Lisinopril [Zestril] 5 mg PO DAILY 11/27/16 05/27/18 Furosemide [Lasix] 40 mg PO DAILY 02/20/17 05/27/18 Previous Rx's Medication Instructions Recorded Carvedilol [Coreg] 12.5 mg PO BIDWM #60 tablet 10/26/16 Allergies Allergy/AdvReac Type Severity Reaction Status Date / Time aspirin AdvReac Gastrointestinal Verified 05/27/18 18:47 Upset Penicillins AdvReac See Verified 05/27/18 18:47 Comments All systems ED: reviewed and negative except as stated. Constitutional: Denies: fever, chills, weakness ENT ED: Denies: dysphagia Cardiovascular: Reports: dyspnea on exertion. Denies: chest pain, edema, syncope Respiratory: Reports: cough, dyspnea, sputum production. Denies: wheezes Gastrointestinal: Denies: abdominal pain, nausea Genitourinary: Denies: urgency, dysuria Musculoskeletal: Denies: back pain, neck pain Integumentary: Denies: rash Neurological: Denies: headache, weakness Past Medical History - Past Medical History Attestation: Yes The following information was validated with the patient. Source: patient, old records reviewed Medical history: Reports: non-contributory, asthma, CHF, CVA, diabetes, hypertension Surgical history: Reports: non-contributory Psychiatric history: Reports: no psych history - Social History Smoking Status: Former smoker Smokeless Tobacco Status: No Alcohol use: Reports: occasionally Drug use: Reports: none Physical Exam - General Limitations: no limitations General appearance: alert, in no apparent distress - Head Head exam: atraumatic, normocephalic, normal inspection - Eye Eye exam: Present: normal appearance, PERRL, EOMI - ENT ENT exam: normal exam, normal oropharynx, mucous membranes moist - Neck Neck exam: Present: normal inspection - Chest Chest inspection: Present: normal inspection, symmetric chest wall rise - Respiratory Respiratory exam: Present: wheezes (Mild diffuse). Absent: respiratory distress - Cardiovascular Cardiovascular exam: Present: regular rate, normal rhythm, normal heart sounds - Abdominal Exam Abdominal exam: Present: soft, Non-Tender. Absent: tenderness, distention, guarding, rebound, rigidity - Extremities Exam Extremities exam: Present: normal inspection, full ROM. Absent: tenderness, pedal edema - Neurological Exam Neurological exam: Present: alert, oriented X3 - Skin Skin exam: Present: warm Course Vital Signs Temperature 99 F 05/27/18 13:27 Pulse Rate 91 05/27/18 13:27 Respiratory Rate 20 05/27/18 13:27 Blood Pressure 217/89 05/27/18 13:27 O2 Sat by Pulse Oximetry 90 05/27/18 13:27 Temperature 99 F 05/27/18 13:27 Pulse Rate 91 05/27/18 13:27 Respiratory Rate 20 05/27/18 16:14 Blood Pressure 217/89 05/27/18 13:27 O2 Sat by Pulse Oximetry 94 05/27/18 16:14 Oxygen Delivery Oxygen Delivery Room Air Shortness of Breath/Dyspnea - MDM Narrative Medical decision making narrative: Patient's workup in the emergency department demonstrates findings consistent with a COPD exacerbation. The patient was ambulated in the emergency department her O2 saturations dropped to the mid 80s. She does not wear oxygen at home. Given the patient's desaturation and complaint of shortness of breath , we will admit the patient to the hospital at this time. The patient was accepted to the hospital by Dr. Duenas. - Lab Data Lab results reviewed: Yes I reviewed the patient's lab results. Result diagrams: 05/27/18 15:50 05/27/18 15:50 Lab Results 05/27/18 05/27/18 05/27/18 Range/Units 15:48 15:50 15:50 WBC 7.2 (4.3-11.1) K/mcL RBC 5.03 H (3.82-4.97) M/mcL Hgb 15.6 H (11.5-15.4) g/dL Hct 47.1 H (35.3-44.9) % MCV 93.6 (83.0-100.0) fL MCH 31.0 (28.0-33.3) pg MCHC 33.1 (31.6-35.5) g/dL RDW 12.7 (11.5-14.5) % Plt Count 128 L (140-400) K/mcL MPV 11.6 (9.4-12.4) fL Immature Gran % 0.3 (0-4) % Seg Neutrophils % 73.8 % Lymphocytes % 12.9 % Monocytes % 11.3 % Eosinophils % 1.3 % Basophils % 0.4 % Neutrophils # 5.3 (1.6-8.9) K/mcL Lymphocytes # 0.9 (0.6-4.6) K/mcL Monocytes # 0.8 (0.0-1.3) K/mcL Eosinophils # 0.1 (0.0-0.6) K/mcL Basophils # 0.0 (0.0-0.2) K/mcL Sodium 136 (136-145) mEq/L Potassium 4.0 (3.5-5.1) mEq/L Chloride 94 L (98-107) mEq/L Carbon Dioxide 36 H (23-29) mEq/L BUN 10 (8-23) mg/dL Creatinine 0.67 (0.60-1.20) mg/dL Est GFR ( Amer) > 60 (> 60) Est GFR (Non-Af Amer) > 60 (> 60) BUN/Creatinine Ratio 15 (6-26) Glucose 256 H (70-105) mg/dL Calculated Osmolality 290 (280-300) Lactic Acid 1.3 (0.5-2.2) mmol/L Calcium 9.6 (8.6-10.3) mg/dL Troponin I < 0.03 (< 0.04) ng/mL B-Natriuretic Peptide (Less than 100) pg/mL 05/27/18 Range/Units 15:50 WBC (4.3-11.1) K/mcL RBC (3.82-4.97) M/mcL Hgb (11.5-15.4) g/dL Hct (35.3-44.9) % MCV (83.0-100.0) fL MCH (28.0-33.3) pg MCHC (31.6-35.5) g/dL RDW (11.5-14.5) % Plt Count (140-400) K/mcL MPV (9.4-12.4) fL Immature Gran % (0-4) % Seg Neutrophils % % Lymphocytes % % Monocytes % % Eosinophils % % Basophils % % Neutrophils # (1.6-8.9) K/mcL Lymphocytes # (0.6-4.6) K/mcL Monocytes # (0.0-1.3) K/mcL Eosinophils # (0.0-0.6) K/mcL Basophils # (0.0-0.2) K/mcL Sodium (136-145) mEq/L Potassium (3.5-5.1) mEq/L Chloride (98-107) mEq/L Carbon Dioxide (23-29) mEq/L BUN (8-23) mg/dL Creatinine (0.60-1.20) mg/dL Est GFR ( Amer) (> 60) Est GFR (Non-Af Amer) (> 60) BUN/Creatinine Ratio (6-26) Glucose (70-105) mg/dL Calculated Osmolality (280-300) Lactic Acid (0.5-2.2) mmol/L Calcium (8.6-10.3) mg/dL Troponin I (< 0.04) ng/mL B-Natriuretic Peptide 181 H (Less than 100) pg/mL - Radiology Data Radiology results reviewed: Yes I reviewed the patient's radiology results. Chest X-Ray 05/27/18 15:06 IMPRESSION: 1. Pulmonary sequela typical of that seen with smoking, including emphysema. Correlate with clinical history. 2. Calcific atherosclerotic disease aorta. 3. Otherwise unremarkable chest, unchanged from prior study. D/ / Juan Morrow / Juan Morrow Interpreting Provider: Juan Morrow - EKG Data EKG attestation: Yes I reviewed and interpreted this EKG. EKG results narrative: Heart rate 79 beats for minute. Normal sinus rhythm. No ST elevation but there is mild ST depression noted in V5, V6. There are flipped T waves noted in leads 1 and aVL. Patient's EKG overall similar to EKG from 10/23/2016. Attestation Statement - Attestation Attestation: I examined this patient and my medical decision-making was reviewed with the Resident Physician. I agree with the documented findings, disposition and treatment plan as described except to the extent set forth below. Findings consistent with COPD exacerbation versus mild heart failure patient will be admitted for further management of heart failure versus COPD exacerbation. Improvement with steroids, bronchodilator. We will provide home medications for blood pressure control.
[2018-05-27 16:20] LABS: BUN/Creatinine Ratio 15 (6-26); Blood Urea Nitrogen 10 mg/dL (8-23); Calcium 9.6 mg/dL (8.6-10.3); Carbon Dioxide 36 mEq/L (23-29); Chloride 94 mEq/L (98-107); Glucose 256 mg/dL (70-105); Osmolality,Calculated 290 (280-300); Sodium 136 mEq/L (136-145); Troponin I < 0.03 ng/mL (< 0.04); eGFR For Non-African Americans > 60 (> 60)
--- NOTE | 2018-05-27 20:04 | Internal Med History&Physical ---
Date of Encounter: 05/27/18 Time of Encounter: 20:04 Internal Medicine - H&P: HPI Chief complaint: SOB Admitted From: Emergency Dept Plans for Post Hospital Care: Home History of present illness: Ms. Prescott is a 67 year old female with past medical history of asthma/COPD, diabetes who presents the emergency room with complaint of shortness of breath. She states it was gradual onset starting Saturday and has progressively gotten worse. She also states that she has been struggling with an upper respiratory infection during that time with complaints of rhinorrhea, postnasal drip. She is experiencing a cough at this time however states is nonproductive. Denies any symptoms of fevers, chills, nausea, vomiting, diarrhea. She is not having any chest pain. She states she has been admitted for COPD exacerbations in the past and was recently diagnosed with congestive heart failure however she denies any symptoms of lower extremity edema, orthopnea. She does use a home albuterol inhaler and has been using it more frequently without much relief. She states normally she does not wear home oxygen and is able to walk without difficulty however she makes approximately 10 feet for becoming short of breath now. In the emergency department, chest x-ray was grossly unremarkable. Laboratory results were significant for a mildly elevated H/H consistent with chronic hypoxia, bicarbonate of 36, BNP 181. She was mildly tachycardic at 91, respiratory rate 20, saturating 90% on 2 L and hypertensive at 217/89. She does state that she did not take any of her medications this morning. She was given DuoNeb 3 as well as 60 mg of prednisone in the emergency department. Past medical history as above Denies surgical history Social history significant for former smoker quitting approximately 11 years ago , previously one half to one pack per day 30 years. States one glass of wine per night and denies any recreational drug use Past Med Surg Social Fam HX - Past Medical History Medical history: non-contributory, asthma, CHF, CVA, diabetes, hypertension Additional medical history: MVP Psychiatric history: no psych history - Past Surgical History Surgical History: non-contributory - Social History Smoking Status: Former smoker Smokeless Tobacco Status: No Alcohol use: occasionally Drug use: none - Family History Mother Adopted: No Family Member Ethnicity: Non- Living Status: Hx Family Cardiac Disorders: No Hx Family Respiratory Disorders: No Hx Family Cancer: Yes (colon, liver) Hx Family GI Disorders: Yes Hx Family Endocrine Disorder: Yes Hx Family Neuromuscular Disorders: No Hx Family Neurologic Disorders: No Hx Family HEENT Disorders: No Hx Family Autoimmune Disorders: No Sister Hx Family Endocrine Disorder: Yes (DM) Internal Medicine - H&P: Meds Albuterol Sulfate [Albuterol Inhaler] 2 puff IH Q4HR PRN 10/23/16 [History] Cetirizine HCl [Zyrtec] 10 mg PO DAILY 10/23/16 [History] GlipiZIDE XL (24 HR) [Glucotrol XL] 10 mg PO DAILY 10/23/16 [History] Montelukast [Singulair] 10 mg PO DAILY 10/23/16 [History] SitaGLIPtin [Januvia] 100 mg PO DAILY 10/23/16 [History] Venlafaxine XR (24 HR) [Effexor XR] 75 mg PO DAILY 10/23/16 [History] Carvedilol [Coreg] 12.5 mg PO BIDWM #60 tablet 10/26/16 [Rx] Lisinopril [Zestril] 5 mg PO DAILY 11/27/16 [History] Furosemide [Lasix] 40 mg PO DAILY 02/20/17 [History] 3 Allergy/AdvReac Type Severity Reaction Status Date / Time aspirin AdvReac Gastrointestinal Verified 05/27/18 18:47 Upset Penicillins AdvReac See Verified 05/27/18 18:47 Comments All Systems PM: A 10-system review of systems was performed and is negative for pertinent findings except as documented above in the HPI. - Constitutional Constitutional: no chills, no fever(s), no lethargy, no malaise - EENT Nose, mouth and throat: nasal congestion, nasal discharge, post-nasal drip, no hoarseness, no sore throat - Cardiovascular Cardiovascular ROS IM: dyspnea, dyspnea on exertion, no chest pain, no edema, no orthopnea, no paroxysmal nocturnal dyspnea - Respiratory Respiratory: cough, dyspnea, dyspnea on exertion, no wheezing, no excessive phlegm production, no change in phlegm color, no pain with cough - Gastrointestinal Gastrointestinal: no abdominal pain, no constipation, no diarrhea, no nausea, no vomiting - Integumentary Integumentary IM: no rash - Neurological Neurological ROS: no numbness, no tingling - Constitutional Vitals: Temp Pulse Resp BP Pulse Ox 99 F 91 20 217/89 93 05/27/18 13:27 05/27/18 13:27 05/27/18 16:14 05/27/18 13:27 05/27/18 19:51 Exam: Gen.: Vitals noted. No acute distress. AAOx3 HEENT: PERRL/EOMI, oropharynx clear, Normocephalic, atraumatic, MMM Cardiac: RRR, no murmur, +S1/S2 Pulmonary: Expiratory Wheezes in bilateral upper lobes, equal chest expansion Abdomen: soft, nontender, BS noted, no guarding, no rebound. Extremities: no BLE edema, nontender calf, no cyanosis or clubbing Neuro: A&Ox3, moves all extremities, no focal deficits Psych: Appropriate mood and behavior Internal Med - H&P Results - Labs CBC & Chem 7: 05/27/18 15:50 05/27/18 15:50 - Assessment and plan (1) Acute respiratory failure Current Visit: Yes Status: Acute Assessment and plan: - Non-oxygen dependent at home, acute respiratory failure with hypoxia. - Likely secondary to COPD exacerbation. - Denies fevers, no WBC elevation. Wheezes on auscultation - Chest x-ray was grossly unremarkable showing signs of possible emphysema - Currently tolerating 2 L of oxygen saturations in the mid 90s Plan - Start Levaquin, DuoNeb scheduled, albuterol when necessary, prednisone 40 mg daily - Continue supplemental oxygen as necessary Qualifiers: Respiratory failure complication: hypoxia Qualified Code(s): J96.01 - Acute respiratory failure with hypoxia (2) Acute exacerbation of chronic obstructive airways disease Current Visit: Yes Status: Acute Assessment and plan: As above for acute respiratory failure (3) Hypertension Current Visit: Yes Status: Chronic Assessment and plan: Elevated temperatures presentation at 217/80, patient states she did not take her morning medications Has improved with administration of home carvedilol dose to 155/80 - We will continue home medications Qualifiers: Hypertension type: essential hypertension Qualified Code(s): I10 - Essential (primary) hypertension (4) Diabetes mellitus Current Visit: Yes Status: Chronic Assessment and plan: Patient reports well-controlled type 2 diabetes - Blood sugar on presentation to 256, possibly elevated and in the presence of infection - Most recent A1c in January 2018 is 8.1% - We will start on moderate dose sliding scale insulin due to infection, steroid administration - Repeat A1c Qualifiers: Diabetes mellitus type: type 2 Diabetes mellitus shelter insulin use: without superintendent [employer] use Diabetes mellitus complication status: with unspecified complications Qualified Code(s): E11.8 - Type 2 diabetes mellitus with unspecified complications (5) DVT prophylaxis Current Visit: Yes Status: Acute Assessment and plan: Heparin 5000 units every 8 hours - Time Spent With Patient Total time spent is greater than 50% in coordination of care (as documented) at patient's floor/unit and/or counseling patient:
[2018-05-27] MEDS ORDERED: Albuterol 2.5 MG/3 ML NEBULIZER IH PRN (20:22)
[2018-05-27] MEDS ORDERED: D5% in Water 1,000 ML IVC PRN (20:25)
[2018-05-27] MEDS ORDERED: *HR* Dextrose 50 % in Water (Syg) 50 ML SYRINGE IVP PRN (20:25)
[2018-05-27] MEDS ORDERED: Dextrose Gel 15 GM/37.5 ML TUBE PO PRN ×2 (20:25)
[2018-05-27] MEDS ORDERED: Acetaminophen 325 MG TABLET PO PRN (21:28)
[2018-05-27] MEDS ORDERED: Naloxone 0.4 MG/ML INJ IVP PRN (21:28)
[2018-05-27] MEDS ORDERED: *HR* HYDROcodone/Acet 5/325 mg TABLET PO PRN (21:28)
[2018-05-27] MEDS: *HR* Heparin 5,000 UNIT/ML VIAL SQ SCH (22:12)
[2018-05-28] MEDS: Ipratropium/Albuterol Neb 3 ML IH SCH ×3 (00:35→07:21)
[2018-05-28 04:02] LABS: Hematocrit 42.6 % (35.3-44.9); Lymphocytes # 0.6 K/mcL (0.6-4.6); Lymphocytes % 13.7 %; Mean Corpuscular HGB Conc 32.9 g/dL (31.6-35.5); Mean Corpuscular Hemoglobin 30.3 pg (28.0-33.3); Mean Corpuscular Volume 92.2 fL (83.0-100.0); Mean Platelet Volume 11.9 fL (9.4-12.4); Monocytes # 0.2 K/mcL (0.0-1.3); Monocytes % 4.6 %; Neutrophils # 3.8 K/mcL (1.6-8.9); Platelet Count 114 K/mcL (140-400); Red Blood Count 4.62 M/mcL (3.82-4.97); Red Cell Distribution Width 12.8 % (11.5-14.5); Segmented Neutrophils % 81.7 %
[2018-05-28 04:18] LABS: BUN/Creatinine Ratio 20 (6-26); Blood Urea Nitrogen 11 mg/dL (8-23); Calcium 9.5 mg/dL (8.6-10.3); Carbon Dioxide 31 mEq/L (23-29); Chloride 98 mEq/L (98-107); Glucose 277 mg/dL (70-105); Osmolality,Calculated 291 (280-300); Sodium 136 mEq/L (136-145); eGFR For Non-African Americans > 60 (> 60)
[2018-05-28] MEDS: *HR* Heparin 5,000 UNIT/ML VIAL SQ SCH ×3 (05:23→21:17)
[2018-05-28 06:48] LABS: Estimated Average Glucose 189 mg/dl; Hemoglobin A1C 8.2 %
[2018-05-28] MEDS ORDERED: Levofloxacin 750 MG/150 ML 750 MG/150 ML BAG IVPB SCH (09:00)
[2018-05-28] MEDS: Venlafaxine XR (24 HR) 75 MG CAP.ER.24H PO SCH (10:43)
[2018-05-28] MEDS: predniSONE 20 MG TABLET PO SCH (10:43)
[2018-05-28] MEDS: Furosemide 40 MG TABLET PO SCH (10:43)
[2018-05-28] MEDS: Insulin LISPRO 300 UNITS/3 ML VIAL SQ SCH ×3 (10:51→18:21)
[2018-05-28] MEDS: Insulin DETEMIR 100 UNIT/ML X5UNITS SQ SCH (14:01)
--- NOTE | 2018-05-28 15:10 | Internal Med Progress Note ---
Hospitalist Progress Note - Encounter Date of Encounter: 05/28/18 Time of Encounter: 15:08 - Subjective Interval History: Patient continues to have shortness of breath. She does feel much better compared to yesterday. She has cough with greenish sputum. No chest pain or palpitations. On 3 L nasal cannula. - Exam Vitals: Temp Pulse Resp BP Pulse Ox 98 F 65 16 145/78 96 05/28/18 11:30 05/28/18 11:30 05/28/18 11:30 05/28/18 11:30 05/28/18 11:30 - Assessment and Plan (1) Acute respiratory failure Current Visit: Yes Status: Acute Assessment and Plan: Due to acute COPD exacerbation. Will treat underlying COPD. Continue bronchodilators. O2 supplementation. Wean FiO2 as tolerated. (2) Acute exacerbation of chronic obstructive airways disease Current Visit: Yes Status: Acute Assessment and Plan: Clinically improving. Continue bronchodilators and steroids. Change Levaquin to 500 mg by mouth daily. Moderate risk for complications. (3) Hypertension Current Visit: Yes Status: Chronic Assessment and Plan: Blood pressure is elevated. Will increase lisinopril to 10 mg by mouth daily (4) Diabetes mellitus Current Visit: Yes Status: Chronic Assessment and Plan: Elevated. Likely due to steroid use. Add long-acting insulin. Increase sliding scale coverage and add bedtime coverage (5) DVT prophylaxis Current Visit: Yes Status: Acute Assessment and Plan: Subcutaneous heparin - Time Spent with Patient Total time spent is greater than 50% in coordination of care (as documented) at patient's floor/unit and/or counseling patient: Plan of Care Discussed with: patient Internal Medicine: Result - Labs CBC & Chem 7: 05/28/18 03:31 05/28/18 03:31 Labs: Short CBC 05/28/18 Range/Units 03:31 WBC 4.6 (4.3-11.1) K/mcL Hgb 14.0 D (11.5-15.4) g/dL Hct 42.6 (35.3-44.9) % Plt Count 114 L (140-400) K/mcL Neutrophils # 3.8 (1.6-8.9) K/mcL BMP 05/28/18 03:31 Sodium 136 Potassium 4.0 Chloride 98 Carbon Dioxide 31 H BUN 11 Creatinine 0.56 L Glucose 277 H Calcium 9.5 Consult Discharge Plan - Plan Referrals: [place],Eriberto Rashaad, DO [Primary Care Provider] - (1) Acute respiratory failure Qualifiers: Respiratory failure complication: hypoxia Qualified Code(s): J96.01 - Acute respiratory failure with hypoxia (3) Hypertension Qualifiers: Hypertension type: essential hypertension Qualified Code(s): I10 - Essential (primary) hypertension (4) Diabetes mellitus Qualifiers: Diabetes mellitus type: type 2 Diabetes mellitus snf insulin use: without snf use Diabetes mellitus complication status: with unspecified complications Qualified Code(s): E11.8 - Type 2 diabetes mellitus with unspecified complications
--- NOTE | 2018-05-28 16:54 | Electrocardiograph Report ---
[address] [place] [address] Test Date: 2018-05-27 Pat Name: Margoth Prescott Department: 104 Room: 3A37 Gender: F [employer]le Maker: [facility] : 1950 Requested By: Carlitos Velarde Order Number: [id number] Reading MD: Kit Soto Measurements Intervals [place] Rate: 79 P: 88 UT: 173 QRS: -37 QRSD: 122 T: 101 QT: 411 QTc: 446 Interpretive Statements SINUS RHYTHM MARKED LEFT AXIS DEVIATION LEFT VENTRICULAR HYPERTROPHY AND ST-T CHANGE POSSIBLE ANTERIOR MYOCARDIAL INFARCTION, OF INDETERMINATE AGE Electronically Signed On 05-28-2018 16:52:53 EDT by Kit Soto
[2018-05-28] MEDS ORDERED: Insulin LISPRO 300 UNITS/3 ML VIAL SQ SCH (21:00)
[2018-05-29] MEDS: Ipratropium/Albuterol Neb 3 ML IH PRN ×3 (04:01→22:48)
[2018-05-29] MEDS: *HR* Heparin 5,000 UNIT/ML VIAL SQ SCH ×3 (05:08→21:28)
[2018-05-29] MEDS: Venlafaxine XR (24 HR) 75 MG CAP.ER.24H PO SCH (09:10)
[2018-05-29] MEDS: levoFLOXacin 500 MG TABLET PO SCH (09:10)
[2018-05-29] MEDS: predniSONE 20 MG TABLET PO SCH (09:10)
[2018-05-29] MEDS: Furosemide 40 MG TABLET PO SCH (09:10)
[2018-05-29] MEDS: Insulin LISPRO 300 UNITS/3 ML VIAL SQ SCH ×3 (09:11→16:50)
[2018-05-29] MEDS: Insulin DETEMIR 100 UNIT/ML X5UNITS SQ SCH (09:12)
--- NOTE | 2018-05-29 16:05 | Internal Med Progress Note ---
Hospitalist Progress Note - Encounter Date of Encounter: 05/29/18 Time of Encounter: 08:40 - Subjective Interval History: Patient continues to have persistent cough with greenish sputum. Her shortness of breath is somewhat improved but with her coughing spells she gets very short of breath. No hemoptysis. No episodes of fever. - Exam Vitals: Temp Pulse Resp BP Pulse Ox 98.2 F 70 14 172/84 93 05/29/18 14:25 05/29/18 14:25 05/29/18 14:25 05/29/18 14:25 05/29/18 14:25 Exam: General: Patient is alert, no acute distress, oriented x 3 Head: atraumatic, normocephalic, Eye: normal appearance, PERRL, no scleral icterus, no conjunctival injection ENT: mucous membranes moist, normal external ear exam Neck: normal inspection, trachea midline, full ROM, no carotid bruits Chest: normal inspection, symmetric chest rise Respiratory: Bilateral wheezing, prolonged expiratory phase. No wheezing or crackles.. Cardiovascular: Regular rate and rhythm. s1 and s2 No clicks, rubs, gallops, or murmurs. No pedal edema Abdomen: Abdomen is soft, nontender. Bowel sounds are present Musculoskeletal: Spontaneously moving all extremities. Skin: warm, dry, intact. Neuro: Alert oriented x 3 normal cranial nerves, no focal deficits Psych: Patient's affect is normal - Assessment and Plan (1) Acute respiratory failure Current Visit: Yes Status: Acute Assessment and Plan: Due to COPD exacerbation. Continue O2 supplementation. Patient evaluated face- to-face today. She did qualify for home oxygen. This will be provided for her at time of discharge. (2) Acute exacerbation of chronic obstructive airways disease Current Visit: Yes Status: Acute Assessment and Plan: With acute on chronic bronchitis. Continue steroids, bronchodilators. O2 supplementation. (3) Hypertension Current Visit: Yes Status: Chronic Assessment and Plan: Blood pressure has been intermittently elevated. Continue lisinopril. Dosage increased to 10 mg daily yesterday. If persistently elevated, will add amlodipine. (4) Diabetes mellitus Current Visit: Yes Status: Chronic Assessment and Plan: Sugars are persistently elevated. Will increase Levemir dosage to 10 units twice a day (5) DVT prophylaxis Current Visit: Yes Status: Acute Assessment and Plan: On subcutaneous heparin - Time Spent with Patient Total time spent is greater than 50% in coordination of care (as documented) at patient's floor/unit and/or counseling patient: Plan of Care Discussed with: patient Internal Medicine: Result - Labs CBC & Chem 7: 05/28/18 03:31 05/28/18 03:31 Consult Discharge Plan - Plan Referrals: Erbierto Covarrubias DO [Primary Care Provider] - (1) Acute respiratory failure Qualifiers: Respiratory failure complication: hypoxia Qualified Code(s): J96.01 - Acute respiratory failure with hypoxia (3) Hypertension Qualifiers: Hypertension type: essential hypertension Qualified Code(s): I10 - Essential (primary) hypertension (4) Diabetes mellitus Qualifiers: Diabetes mellitus type: type 2 Diabetes mellitus snf insulin use: without snf use Diabetes mellitus complication status: with unspecified complications Qualified Code(s): E11.8 - Type 2 diabetes mellitus with unspecified complications
[2018-05-29] MEDS ORDERED: Insulin DETEMIR 100 UNIT/ML X5UNITS SQ SCH (21:00)
[2018-05-29] MEDS ORDERED: Insulin LISPRO 300 UNITS/3 ML VIAL SQ SCH (21:00)
[2018-05-30] MEDS: *HR* Heparin 5,000 UNIT/ML VIAL SQ SCH ×2 (06:51→12:44)
[2018-05-30] MEDS ORDERED: Insulin LISPRO 300 UNITS/3 ML VIAL SQ SCH (08:15)
[2018-05-30] MEDS: Insulin LISPRO 300 UNITS/3 ML VIAL SQ SCH ×2 (08:32→12:43)
[2018-05-30] MEDS: Furosemide 40 MG TABLET PO SCH (08:38)
[2018-05-30] MEDS: predniSONE 20 MG TABLET PO SCH (08:38)
[2018-05-30] MEDS: Venlafaxine XR (24 HR) 75 MG CAP.ER.24H PO SCH (08:38)
[2018-05-30] MEDS: levoFLOXacin 500 MG TABLET PO SCH (08:38)
[2018-05-30] MEDS ORDERED: Insulin DETEMIR 100 UNIT/ML X5UNITS SQ SCH (09:00)
[2018-05-30 10:48] VITALS: BP 131/81
--- NOTE | 2018-05-30 11:00 | Discharge Summary ---
- NOTES TO OUTPATIENT PROVIDER Notes to Outpatient Provider: Patient hospitalized with acute COPD exacerbation. Treated with bronchodilators, steroids and antibiotics along with O2 supplementation. Symptoms have now improved. Clinically stable for discharge home. She did qualify for home oxygen due to underlying COPD. Date of Encounter: 05/30/18 Time of Encounter: 10:55 - Discharge Diagnosis (1) Acute respiratory failure Priority: Primary Status: Acute Qualifiers: Respiratory failure complication: hypoxia Qualified Code(s): J96.01 - Acute respiratory failure with hypoxia (2) Acute exacerbation of chronic obstructive airways disease Priority: Secondary Status: Acute (3) Hypertension Priority: Secondary Status: Chronic Qualifiers: Hypertension type: essential hypertension Qualified Code(s): I10 - Essential (primary) hypertension (4) Diabetes mellitus Priority: Secondary Status: Chronic Qualifiers: Diabetes mellitus type: type 2 Diabetes mellitus interactive project manager insulin use: without interactive project manager use Diabetes mellitus complication status: with unspecified complications Qualified Code(s): E11.8 - Type 2 diabetes mellitus with unspecified complications (5) DVT prophylaxis Priority: Secondary Status: Acute Hospital course: Ms. Prescott is a 67 year old female with history of COPD, diabetes, hypertension Patient hospitalized with acute COPD exacerbation with acute bronchitis. Treated with bronchodilators, steroids and antibiotics along with O2 supplementation. Symptoms have now improved. Clinically stable for discharge home. She did qualify for home oxygen due to underlying COPD. her blood sugars have been elevated as she is been receiving steroids. Anticipate her sugars will improve once she is tapered off steroids. She is however advised to monitor blood sugars closely and if it is persistently elevated to call her primary care provider to make adjustments to her diabetic regimen. Discharge discussed with: patient, nurse - Time Spent with Patient Total time spent providing and/or coordinating discharge services: Greater than 30 minutes (35 min) - Discharge Medications Prescriptions: Ipratropium/Albuterol Neb [Duoneb] 3 ml IH [id number] PRN #30 inhsol PRN Reason: Wheezing Budesonide/Formoterol 160/4.5 [Symbicort 160/4.5] 2 puff IH BIDR #1 hfa.aer.ad levoFLOXacin [Levaquin] 500 mg PO DAILY #4 tablet Lisinopril [Zestril] 10 mg PO DAILY #30 tablet predniSONE [PredniSONE] 10 mg PO DAILY 6 Days #18 tablet Home Medications: Albuterol Sulfate [Albuterol Inhaler] 2 puff IH Q4HR PRN 10/23/16 [History] Cetirizine HCl [Zyrtec] 10 mg PO DAILY 10/23/16 [History] GlipiZIDE XL (24 HR) [Glucotrol XL] 10 mg PO DAILY 10/23/16 [History] Montelukast [Singulair] 10 mg PO DAILY 10/23/16 [History] SitaGLIPtin [Januvia] 100 mg PO DAILY 10/23/16 [History] Venlafaxine XR (24 HR) [Effexor XR] 75 mg PO DAILY 10/23/16 [History] Carvedilol [Coreg] 12.5 mg PO BIDWM #60 tablet 10/26/16 [Rx] Furosemide [Lasix] 40 mg PO DAILY 02/20/17 [History] Budesonide/Formoterol 160/4.5 [Symbicort 160/4.5] 2 puff IH BIDR #1 hfa.aer.ad 05/30/18 [Rx] Ipratropium/Albuterol Neb [Duoneb] 3 ml IH [id number] PRN #30 inhsol 05/30/18 [Rx] Lisinopril [Zestril] 10 mg PO DAILY #30 tablet 05/30/18 [Rx] levoFLOXacin [Levaquin] 500 mg PO DAILY #4 tablet 05/30/18 [Rx] predniSONE [PredniSONE] 10 mg PO DAILY 6 Days #18 tablet 05/30/18 [Rx] Allergies/Adverse Reactions: 3 Allergy/AdvReac Type Severity Reaction Status Date / Time aspirin AdvReac Gastrointestinal Verified 05/27/18 18:47 Upset Penicillins AdvReac See Verified 05/27/18 18:47 Comments Date of admission: 05/28/18 14:55 Primary care physician: Eriberto Covarrubias Discharging clinician: Margot Lauren Anticipated date of discharge: 05/30/18 - Constitutional Vitals: Temp Pulse Resp BP Pulse Ox 97.5 F L 59 18 131/81 92 05/30/18 10:41 05/30/18 10:41 05/30/18 10:41 05/30/18 10:41 05/30/18 10:41 General appearance: Present: A&O X 3, pleasant, answers questions appropriately - Neck Neck exam general surgery: Present: supple, trachea midline. Absent: lymphadenopathy - Respiratory Respiratory exam: Present: CTAB. Absent: accessory muscle use, rales, rhonchi, wheezes - Cardiovascular Cardiovascular exam: Present: RRR, +S1, +S2. Absent: diastolic murmur, gallop, rubs, systolic murmur - GI/Abdominal GI/Abdominal exam: Present: normal bowel sounds, soft, no peritoneal signs. Absent: distended, tenderness - Extremities Exam Extremities exam: Present: warm, radial pulses palpable and symmetrical. Absent : calf tenderness, cyanotic, pedal edema - Patient Status Disposition: Home, Self-Care Condition: Good Functional capacity at discharge: independent ambulation Overall status at discharge: patient is progressing back to baseline - Discharge Instructions Instructions: Acute Respiratory Distress Syndrome (DC), Diabetes Mellitus Type 2 in Adults (DC), Chronic Obstructive Pulmonary Disease (DC) Follow Up With: Eriberto Covarrubias DO [Primary Care Provider] - 06/04/18 2:30 pm (in 1-2 weeks) - Diet and Activity Activity: increase activity as tolerated, wear oxygen at all times Diet: advance to your usual diet, diabetic diet
== END 2018-05-30 13:47 | disposition home or self-care (01) | DRG 190 ==
LOC: 3ANU 13:24 → EMEROO 13:24 → 3ANU 20:21 → UNDODISOB 21:19 → SUATTDRO 05-28 14:55
PROVIDERS: ADMIT Internal Medicine; ATTEND Internal Medicine

== ENCOUNTER 2020-10-28 22:05 | Observation (INO) ==
[2020-10-28] MEDS ORDERED: Tdap (Boostrix) Vaccine 0.5 ML SYRINGE IM ONE (22:24)
[2020-10-28 22:48] LABS: Basophils % 0.3 %; Eosinophils # 0.1 K/mcL (0.0-0.6); Eosinophils % 1.2 %; Hematocrit 36.4 % (35.3-44.9); Hemoglobin 11.6 g/dL (11.5-15.4); Immature Granulocytes % 0.2 % (0-4); Immature Platelets 11.6 % (1.1-6.1); Lymphocytes # 1.1 K/mcL (0.6-4.6); Lymphocytes % 18.8 %; Mean Corpuscular HGB Conc 31.9 g/dL (31.6-35.5); Mean Corpuscular Hemoglobin 29.7 pg (28.0-33.3); Mean Corpuscular Volume 93.3 fL (83.0-100.0); Mean Platelet Volume 11.8 fL (9.4-12.4); Monocytes # 0.7 K/mcL (0.0-1.3); Monocytes % 11.1 %; Neutrophils # 4.1 K/mcL (1.6-8.9); Platelet Count 128 K/mcL (140-400); Red Cell Distribution Width 13.1 % (11.5-14.5); Segmented Neutrophils % 68.4 %; White Blood Count 5.9 K/mcL (4.3-11.1)
[2020-10-28 22:57] LABS: INR 1.1
[2020-10-28 23:00] LABS: Activated Partial Thrombo Time 30.5 Seconds (26.0-36.0)
[2020-10-28] MEDS: 0.9 % Sodium Chloride 1,000 ML IVC SCH (23:22)
[2020-10-28 23:41] LABS: BUN/Creatinine Ratio 22 (6-26); Blood Urea Nitrogen 13 mg/dL (8-23); Carbon Dioxide 29 mEq/L (23-29); Chloride 91 mEq/L (98-107); Glucose 195 mg/dL (70-105); Osmolality,Calculated 285 (280-300); Potassium 4.1 mEq/L (3.5-5.1); Sodium 135 mEq/L (136-145); eGFR For African Americans > 60 (> 60); eGFR For Non-African Americans > 60 (> 60)
[2020-10-28 23:43] LABS: Troponin I < 0.03 ng/mL (< 0.04)
[2020-10-29 00:39] LABS: Bacteria,Urine Few per hpf (None-Few); Bilirubin,Urine Negative (Negative); Blood,Urine Negative (Negative); Clarity,Urine Clear (Clear); Color,Urine Colorless (Yellow); Glucose,Urine (UA) 30 mg/dL (Normal); Ketones,Urine Trace mg/dL (Negative); Leukocyte Esterase,Urine Negative (Negative); Mucus,Urine Few per lpf (None-Few); Nitrite,Urine Negative (Negative); Protein,Urine Negative (Neg-Trace); RBC,Urine 0-3 per hpf (0-3); Squamous Epithelial Cell,Urine Few per hpf (None-Few); Urobilinogen,Urine Normal (Normal); WBC,Urine 0-3 per hpf (0-3)
[2020-10-29] MEDS ORDERED: Acetaminophen 325 MG TABLET PO PRN (03:29)
[2020-10-29] MEDS ORDERED: Ondansetron 4 MG/2 ML VIAL IVP PRN (03:29)
[2020-10-29] MEDS ORDERED: Naloxone 0.4 MG/ML INJ IVP PRN (03:29)
[2020-10-29] MEDS ORDERED: Ipratropium/Albuterol Neb 3 ML IH PRN (03:31)
[2020-10-29] MEDS ORDERED: *HR* Dextrose 50 % in Water (Vial) 50 ML VIAL IVP PRN (03:32)
[2020-10-29] MEDS ORDERED: Dextrose Gel 15 GM/37.5 ML TUBE PO PRN ×2 (03:32)
[2020-10-29] MEDS ORDERED: D5% in Water 1,000 ML IVC PRN (03:32)
[2020-10-29 04:45] LABS: Mean Corpuscular Volume 93.4 fL (83.0-100.0); Platelet Count 114 K/mcL (140-400); Red Cell Distribution Width 13.1 % (11.5-14.5)
[2020-10-29 04:48] LABS: Basophils % 0.4 %; Eosinophils # 0.1 K/mcL (0.0-0.6); Eosinophils % 1.3 %; Hematocrit 35.2 % (35.3-44.9); Hemoglobin 11.1 g/dL (11.5-15.4); Immature Granulocytes % 0.2 % (0-4); Immature Platelets 10.6 % (1.1-6.1); Lymphocytes # 0.9 K/mcL (0.6-4.6); Mean Corpuscular HGB Conc 31.5 g/dL (31.6-35.5); Mean Corpuscular Hemoglobin 29.4 pg (28.0-33.3); Mean Platelet Volume 11.5 fL (9.4-12.4); Monocytes # 0.6 K/mcL (0.0-1.3); Monocytes % 11.9 %; Nucleated Red Blood Cells 0.4 /100 WBC (0); Red Blood Count 3.77 M/mcL (3.82-4.97); Segmented Neutrophils % 66.2 %; White Blood Count 4.6 K/mcL (4.3-11.1)
[2020-10-29 04:53] LABS: Neutrophils # 3.1 K/mcL (1.6-8.9)
[2020-10-29 05:06] LABS: Alanine Aminotransferase 21 Units/L (7-52); Albumin 3.6 g/dL (3.5-5.7); Albumin/Globulin Ratio 1.1 (1.1-2.2); Alkaline Phosphatase 84 Units/L (34-104); Aspartate Amino Transferase 27 Units/L (13-39); BUN/Creatinine Ratio 18 (6-26); Bilirubin,Total 1.1 mg/dL (0.3-1.0); Blood Urea Nitrogen 11 mg/dL (8-23); Calcium 8.6 mg/dL (8.6-10.3); Carbon Dioxide 36 mEq/L (23-29); Chloride 94 mEq/L (98-107); Globulin 3.4 g/dL (2.4-3.5); Glucose 265 mg/dL (70-105); Magnesium 1.4 mg/dL (1.6-2.6); Osmolality,Calculated 293 (280-300); Phosphorous 3.4 mg/dL (2.7-4.5); Potassium 3.7 mEq/L (3.5-5.1); Sodium 137 mEq/L (136-145); Troponin I 0.03 ng/mL (< 0.04); eGFR For African Americans > 60 (> 60); eGFR For Non-African Americans > 60 (> 60)
[2020-10-29] MEDS ORDERED: Perflutren Lipid Microsphere 1.3 ML in 0.9 % Sodium Chloride 8.7 ML IVP PRN (06:21)
[2020-10-29] MEDS ORDERED: lisinopriL 10 MG TABLET PO SCH (09:00)
[2020-10-29] MEDS: Insulin LISPRO 300 UNITS/3 ML VIAL SUBQ SCH ×4 (09:35→22:18)
[2020-10-29] MEDS: Budesonide/Formoterol 160/4.5 1 PUFF INH IH SCH ×2 (11:05→22:02)
[2020-10-29] MEDS: carvediloL 6.25 MG TABLET PO SCH (18:04)
[2020-10-29] MEDS: Furosemide 40 MG TABLET PO SCH (18:04)
[2020-10-29] MEDS: clonazePAM 0.5 MG TABLET PO SCH (22:15)
[2020-10-29] MEDS: Insulin DETEMIR 100 UNIT/ML X5UNITS SUBQ SCH (22:16)
[2020-10-30] MEDS: Venlafaxine XR (24 HR) 75 MG CAP.ER.24H PO SCH (07:57)
[2020-10-30] MEDS: carvediloL 6.25 MG TABLET PO SCH ×2 (07:57→16:12)
[2020-10-30] MEDS: clonazePAM 0.5 MG TABLET PO SCH ×2 (07:58→19:35)
[2020-10-30] MEDS: lisinopriL 20 MG TABLET PO SCH (07:58)
[2020-10-30] MEDS: Furosemide 40 MG TABLET PO SCH ×2 (07:58→16:12)
[2020-10-30] MEDS: Loratadine 10 MG TABLET PO SCH (07:58)
[2020-10-30] MEDS: Insulin LISPRO 300 UNITS/3 ML VIAL SUBQ SCH ×4 (07:59→19:36)
[2020-10-30] MEDS: Insulin DETEMIR 100 UNIT/ML X5UNITS SUBQ SCH ×2 (07:59→21:20)
[2020-10-30] MEDS: Tiotropium 10 INH DOSE IH SCH (08:07)
[2020-10-30] MEDS: Budesonide/Formoterol 160/4.5 1 PUFF INH IH SCH ×2 (08:07→19:41)
[2020-10-30] MEDS ORDERED: lisinopriL 20 MG TABLET PO SCH (09:00)
[2020-10-30] MEDS ORDERED: amLODIPine 5 MG TABLET PO SCH (09:00)
[2020-10-30] MEDS ORDERED: amLODIPine 5 MG TABLET PO ONE (11:54)
[2020-10-30] MEDS: 0.9 % Sodium Chloride 1,000 ML IVC SCH (21:48)
[2020-10-31] MEDS ORDERED: *HR* Labetalol 20 MG/4 ML SYRINGE IVP PRN (00:01)
[2020-10-31 06:41] LABS: Immature Granulocytes % 0.2 % (0-4); Lymphocytes % 17.7 %; Mean Corpuscular Hemoglobin 29.6 pg (28.0-33.3); Mean Corpuscular Volume 94.4 fL (83.0-100.0)
[2020-10-31 06:43] LABS: Basophils % 0.5 %; Eosinophils # 0.1 K/mcL (0.0-0.6); Eosinophils % 2.3 %; Hematocrit 35.1 % (35.3-44.9); Immature Platelets 10.5 % (1.1-6.1); Lymphocytes # 0.8 K/mcL (0.6-4.6); Mean Corpuscular HGB Conc 31.3 g/dL (31.6-35.5); Mean Platelet Volume 11.7 fL (9.4-12.4); Monocytes # 0.6 K/mcL (0.0-1.3); Monocytes % 12.7 %; Neutrophils # 2.9 K/mcL (1.6-8.9); Red Blood Count 3.72 M/mcL (3.82-4.97); Segmented Neutrophils % 66.6 %; White Blood Count 4.4 K/mcL (4.3-11.1)
[2020-10-31 06:52] LABS: Platelet Count 92 K/mcL (140-400)
[2020-10-31 07:04] LABS: BUN/Creatinine Ratio 29 (6-26); Blood Urea Nitrogen 11 mg/dL (8-23); Calcium 9.1 mg/dL (8.6-10.3); Carbon Dioxide 40 mEq/L (23-29); Chloride 92 mEq/L (98-107); Glucose 177 mg/dL (70-105); Magnesium 1.3 mg/dL (1.6-2.6); Osmolality,Calculated 290 (280-300); Phosphorous 4.1 mg/dL (2.7-4.5); Potassium 3.1 mEq/L (3.5-5.1); Sodium 138 mEq/L (136-145); eGFR For African Americans > 60 (> 60); eGFR For Non-African Americans > 60 (> 60)
[2020-10-31] MEDS ORDERED: Magnesium Sulfate 1 GM/102 ML PIGGYBACK IVPB ONE (07:36)
[2020-10-31] MEDS: lisinopriL 20 MG TABLET PO SCH (07:39)
[2020-10-31] MEDS: clonazePAM 0.5 MG TABLET PO SCH ×2 (07:40→20:17)
[2020-10-31] MEDS: carvediloL 6.25 MG TABLET PO SCH ×2 (07:40→17:44)
[2020-10-31] MEDS: amLODIPine 5 MG TABLET PO SCH (07:40)
[2020-10-31] MEDS: Loratadine 10 MG TABLET PO SCH (07:40)
[2020-10-31] MEDS: Furosemide 40 MG TABLET PO SCH ×2 (07:40→17:44)
[2020-10-31] MEDS: Venlafaxine XR (24 HR) 75 MG CAP.ER.24H PO SCH (07:40)
[2020-10-31] MEDS: Insulin DETEMIR 100 UNIT/ML X5UNITS SUBQ SCH ×2 (07:45→20:19)
[2020-10-31] MEDS: Insulin LISPRO 300 UNITS/3 ML VIAL SUBQ SCH ×4 (07:45→20:19)
[2020-10-31] MEDS ORDERED: hydrALAZINE 25 MG TABLET PO SCH (08:00)
[2020-10-31 09:01] LABS: Estimated Average Glucose 169 mg/dl; Hemoglobin A1C 7.5 %
[2020-10-31] MEDS: Budesonide/Formoterol 160/4.5 1 PUFF INH IH SCH ×2 (09:04→20:43)
[2020-10-31] MEDS: Tiotropium 10 INH DOSE IH SCH (09:09)
[2020-10-31 09:13] LABS: ABG Base Excess 13 mEq/L (-2 to 3); ABG HCO3 40 mEq/L (21-27); ABG Oxygen Saturation 92 % (95-98); ABG PCO2 63 mmHg (35-45); ABG PH 7.41 pH Units (7.32-7.45); ABG PO2 65 mmHg (85-104); ABG TCO2 42 mEq/L (20-26)
[2020-10-31] MEDS ORDERED: Isovue-370 500 ML BOTTLE IVP ONE (09:27)
[2020-10-31] MEDS: hydrALAZINE 25 MG TABLET PO SCH ×2 (17:45→23:34)
[2020-11-01 06:40] LABS: Basophils % 0.4 %; Lymphocytes # 0.9 K/mcL (0.6-4.6); Lymphocytes % 18.6 %; White Blood Count 4.9 K/mcL (4.3-11.1)
[2020-11-01 06:41] LABS: Eosinophils # 0.1 K/mcL (0.0-0.6); Eosinophils % 2.7 %; Hematocrit 34.8 % (35.3-44.9); Hemoglobin 10.8 g/dL (11.5-15.4); Immature Granulocytes % 0.4 % (0-4); Mean Corpuscular Hemoglobin 29.4 pg (28.0-33.3); Mean Corpuscular Volume 94.8 fL (83.0-100.0); Mean Platelet Volume 11.7 fL (9.4-12.4); Monocytes # 0.6 K/mcL (0.0-1.3); Monocytes % 12.4 %; Neutrophils # 3.2 K/mcL (1.6-8.9); Platelet Count 119 K/mcL (140-400); Red Blood Count 3.67 M/mcL (3.82-4.97); Red Cell Distribution Width 13.3 % (11.5-14.5); Segmented Neutrophils % 65.5 %
[2020-11-01 06:54] LABS: BUN/Creatinine Ratio 30 (6-26); Blood Urea Nitrogen 14 mg/dL (8-23); Calcium 9.1 mg/dL (8.6-10.3); Carbon Dioxide 39 mEq/L (23-29); Chloride 94 mEq/L (98-107); Glucose 151 mg/dL (70-105); Magnesium 1.5 mg/dL (1.6-2.6); Osmolality,Calculated 291 (280-300); Potassium 3.1 mEq/L (3.5-5.1); Sodium 139 mEq/L (136-145); eGFR For African Americans > 60 (> 60); eGFR For Non-African Americans > 60 (> 60)
[2020-11-01] MEDS: Loratadine 10 MG TABLET PO SCH (08:25)
[2020-11-01] MEDS: amLODIPine 5 MG TABLET PO SCH (08:26)
[2020-11-01] MEDS: Furosemide 40 MG TABLET PO SCH (08:27)
[2020-11-01] MEDS: clonazePAM 0.5 MG TABLET PO SCH (08:27)
[2020-11-01] MEDS: Venlafaxine XR (24 HR) 75 MG CAP.ER.24H PO SCH (08:27)
[2020-11-01] MEDS: hydrALAZINE 25 MG TABLET PO SCH (08:27)
[2020-11-01] MEDS: carvediloL 6.25 MG TABLET PO SCH (08:27)
[2020-11-01] MEDS: lisinopriL 20 MG TABLET PO SCH (08:27)
[2020-11-01] MEDS: Insulin LISPRO 300 UNITS/3 ML VIAL SUBQ SCH ×2 (08:28→13:09)
[2020-11-01] MEDS: Insulin DETEMIR 100 UNIT/ML X5UNITS SUBQ SCH (08:28)
[2020-11-01] MEDS ORDERED: Magnesium Oxide 400 MG TABLET PO SCH (09:00)
[2020-11-01] MEDS: Tiotropium 10 INH DOSE IH SCH (09:50)
[2020-11-01] MEDS: Budesonide/Formoterol 160/4.5 1 PUFF INH IH SCH (09:50)
[2020-11-01 14:29] VITALS: BP 144/66
== END 2020-11-01 17:20 | disposition home health service (06) ==
LOC: 3BNU 22:05 → EMEROOARM 22:05 → SUATTDRO 10-29 01:58 → 3BNU 10-29 02:27
PROVIDERS: ADMIT Student in an Organized Health Care Education/Training Program; ATTEND General Practice

== ENCOUNTER 2021-09-08 17:56 | Inpatient (IN) ==
[2021-09-08 19:45] LABS: Basophils % 0.1 %
[2021-09-08 19:46] LABS: Hematocrit 34.6 % (35.3-44.9); Hemoglobin 10.5 g/dL (11.5-15.4); Immature Granulocytes % 0.6 % (0-4); Immature Platelets 7.6 % (1.1-6.1); Lymphocytes # 0.5 K/mcL (0.6-4.6); Lymphocytes % 6.7 %; Mean Corpuscular HGB Conc 30.3 g/dL (31.6-35.5); Mean Corpuscular Hemoglobin 29.1 pg (28.0-33.3); Mean Corpuscular Volume 95.8 fL (83.0-100.0); Mean Platelet Volume 11.2 fL (9.4-12.4); Monocytes # 0.5 K/mcL (0.0-1.3); Monocytes % 7.2 %; Red Blood Count 3.61 M/mcL (3.82-4.97); Red Cell Distribution Width 15.3 % (11.5-14.5); Segmented Neutrophils % 85.4 %
[2021-09-08 19:55] LABS: Platelet Count 99 K/mcL (140-400)
[2021-09-08 20:04] LABS: BUN/Creatinine Ratio 18 (6-26); Blood Urea Nitrogen 9 mg/dL (8-23); Calcium 9.1 mg/dL (8.6-10.3); Carbon Dioxide 41 mEq/L (23-29); Chloride 91 mEq/L (98-107); Glucose 191 mg/dL (70-105); Osmolality,Calculated 288 (280-300); Sodium 137 mEq/L (136-145); Troponin I 0.12 ng/mL (< 0.04); eGFR For African Americans > 60 (> 60); eGFR For Non-African Americans > 60 (> 60)
[2021-09-09] MEDS: Aspirin 81 MG TAB.CHEW PO SCH ×2 (00:31→08:15)
[2021-09-09] MEDS ORDERED: Furosemide 40 MG/4 ML VIAL IVP STA (00:33)
[2021-09-09] MEDS ORDERED: Perflutren Lipid Microsphere 1.3 ML in 0.9 % Sodium Chloride 8.7 ML IVP PRN (01:17)
[2021-09-09] MEDS ORDERED: Ondansetron 4 MG/2 ML VIAL IVP PRN (01:18)
[2021-09-09] MEDS ORDERED: Naloxone 0.4 MG/ML INJ IVP PRN (01:18)
[2021-09-09 02:04] LABS: Influenza A PCR Negative (Negative); Influenza B PCR Negative (Negative); Resp. Syncytial Virus PCR Negative (Negative)
[2021-09-09 02:07] LABS: SARS-CoV-2 by PCR (In House) Negative (Negative)
[2021-09-09] MEDS ORDERED: *HR* Dextrose 50 % in Water (Syg) 50 ML SYRINGE IVP PRN (03:24)
[2021-09-09] MEDS ORDERED: D5% in Water 1,000 ML IVC PRN (03:24)
[2021-09-09] MEDS ORDERED: Dextrose Gel 15 GM/37.5 ML TUBE PO PRN ×2 (03:24)
[2021-09-09 03:46] LABS: Hematocrit 34.8 % (35.3-44.9); Hemoglobin 10.6 g/dL (11.5-15.4); Immature Platelets 8.3 % (1.1-6.1); Mean Corpuscular HGB Conc 30.5 g/dL (31.6-35.5); Mean Corpuscular Hemoglobin 29.1 pg (28.0-33.3); Mean Corpuscular Volume 95.6 fL (83.0-100.0); Red Blood Count 3.64 M/mcL (3.82-4.97); Red Cell Distribution Width 15.4 % (11.5-14.5); White Blood Count 7.9 K/mcL (4.3-11.1)
[2021-09-09] MEDS: Acetaminophen 325 MG TABLET PO PRN (04:09)
[2021-09-09 04:11] LABS: BUN/Creatinine Ratio 18 (6-26); Blood Urea Nitrogen 10 mg/dL (8-23); Carbon Dioxide 41 mEq/L (23-29); Chloride 90 mEq/L (98-107); Glucose 216 mg/dL (70-105); Osmolality,Calculated 290 (280-300); Potassium 4.8 mEq/L (3.5-5.1); Sodium 137 mEq/L (136-145); eGFR For African Americans > 60 (> 60); eGFR For Non-African Americans > 60 (> 60)
[2021-09-09] MEDS: *HR* Heparin 5,000 UNIT/ML VIAL SQ SCH ×2 (05:02→14:23)
[2021-09-09 05:34] LABS: Bilirubin,Urine Negative (Negative); Blood,Urine Moderate (Negative); Clarity,Urine Clear (Clear); Color,Urine Light-Yellow (Yellow); Glucose,Urine (UA) Normal (Normal); Hyaline Casts,Urine Few per lpf (None Seen); Ketones,Urine 10 mg/dL (Negative); Leukocyte Esterase,Urine Negative (Negative); Nitrite,Urine Negative (Negative); PH,Urine 6.5 pH Units (5.0-8.0); Protein,Urine 30 mg/dL (Neg-Trace); Specific Gravity,Urine 1.013 (1.010-1.025); Squamous Epithelial Cell,Urine Few per hpf (None-Few); Urobilinogen,Urine Normal (Normal); WBC,Urine 0-3 per hpf (0-3)
[2021-09-09] MEDS ORDERED: *HR* Heparin 5,000 UNIT/ML VIAL IVP PRN ×2 (06:38)
[2021-09-09] MEDS ORDERED: Isovue-370 500 ML BOTTLE IVP ONE (07:31)
[2021-09-09] MEDS: Insulin LISPRO 300 UNITS/3 ML VIAL SUBQ SCH ×3 (08:00→17:20)
[2021-09-09] MEDS: Heparin 25,000UNIT/250ML 1/2NS 25,000 UNIT/250 ML IV.SOLN IVC SCH (08:11)
[2021-09-09] MEDS: carvediloL 6.25 MG TABLET PO SCH ×2 (08:15→17:20)
[2021-09-09] MEDS: clonazePAM 0.5 MG TABLET PO SCH ×2 (08:15→21:12)
[2021-09-09] MEDS: lisinopriL 20 MG TABLET PO SCH (08:15)
[2021-09-09] MEDS: Venlafaxine XR (24 HR) 75 MG CAP.ER.24H PO SCH (08:15)
[2021-09-09] MEDS ORDERED: Furosemide 40 MG/4 ML VIAL IVP SCH (09:00)
[2021-09-09 09:43] LABS: ABG Base Excess 15 mEq/L (-2 to 3); ABG HCO3 42 mEq/L (21-27); ABG Oxygen Saturation 98 % (95-98); ABG PCO2 63 mmHg (35-45); ABG PH 7.43 pH Units (7.32-7.45); ABG PO2 107 mmHg (85-104); ABG TCO2 44 mEq/L (20-26)
[2021-09-09] MEDS ORDERED: Acetaminophen IV 500 MG/50 ML BAG IVPB ONE (10:22)
[2021-09-09] MEDS ORDERED: Albuterol 2.5 MG/3 ML NEBULIZER IH PRN (10:24)
[2021-09-09] MEDS ORDERED: methylPREDNISolone 125 MG/2 ML VIAL IVP ONE (10:25)
[2021-09-09] MEDS: Albuterol 2.5 MG/3 ML NEBULIZER IH SCH ×4 (11:12→23:28)
[2021-09-09] MEDS ORDERED: Spironolactone 25 MG TABLET PO SCH (12:45)
[2021-09-09 14:23] LABS: Adenovirus Not Detected (Not Detect); Bordetella Pertussis Not Detected (Not Detect); Chlamydophila pneumoniae Not Detected (Not Detect); Coronavirus 229E Not Detected (Not Detect); Coronavirus HKU1 Not Detected (Not Detect); Coronavirus NL63 Not Detected (Not Detect); Coronavirus OC43 Not Detected (Not Detect); Human Metapneumovirus Not Detected (Not Detect); Human Rhinovirus/Enterovirus Not Detected (Not Detect); Influenza A Subtype 2009 H1 Not Detected (Not Detect); Influenza B Not Detected (Not Detect); Mycoplasma pneumoniae Not Detected (Not Detect); Parainfluenza Virus 1 Not Detected (Not Detect); Parainfluenza Virus 2 Not Detected (Not Detect); Parainfluenza Virus 3 Not Detected (Not Detect); Parainfluenza Virus 4 Not Detected (Not Detect); Respiratory Syncytial Virus Not Detected (Not Detect); SARS-CoV-2 Not Detected (Not Detect)
[2021-09-09 15:48] LABS: VBG HCO3 41 mEq/L (21-27); VBG PCO2 58 mmHg (41-51); VBG PH 7.45 pH Units (7.32-7.42); VBG PO2 191 mmHg (25-50)
[2021-09-09 23:34] LABS: Acinetobacter baumannii by PCR Not Detected (Not Detect); Candida albicans by PCR Not Detected (Not Detect); Enterobacter cloacae Cmplx PCR Not Detected (Not Detect); Enterobacteriaceae by PCR Not Detected (Not Detect); Enterococcus by PCR Not Detected (Not Detect); Escherichia coli by PCR Not Detected (Not Detect); Klebsiella oxytoca by PCR Not Detected (Not Detect); Klebsiella pneumoniae by PCR Not Detected (Not Detect); Proteus by PCR Not Detected (Not Detect); Pseudomonas aeruginosa by PCR Not Detected (Not Detect); Serratia marcescens by PCR Not Detected (Not Detect); Staphylococcus aureus by PCR Not Detected (Not Detect); Staphylococcus by PCR Not Detected (Not Detect); Streptococcus agalactiae(B)PCR Not Detected (Not Detect); Streptococcus by PCR DETECTED (Not Detect); Streptococcus pneumoniae PCR Not Detected (Not Detect); Streptococcus pyogenes (A) PCR Not Detected (Not Detect)
[2021-09-09 23:35] LABS: Candida glabrata by PCR Not Detected (Not Detect); Candida krusei by PCR Not Detected (Not Detect); Candida parapsilosis by PCR Not Detected (Not Detect); Candida tropicalis by PCR Not Detected (Not Detect)
[2021-09-10] MEDS ORDERED: Vancomycin 2,000 MG/520 ML IV.SOLN IVPB ONE (00:01)
[2021-09-10 00:37] LABS: Mean Platelet Volume 11.5 fL (9.4-12.4)
[2021-09-10 00:39] LABS: Hematocrit 32.9 % (35.3-44.9); Hemoglobin 10.2 g/dL (11.5-15.4); Immature Granulocytes % 0.5 % (0-4); Immature Platelets 9.3 % (1.1-6.1); Lymphocytes # 0.5 K/mcL (0.6-4.6); Lymphocytes % 9.8 %; Mean Corpuscular Hemoglobin 29.8 pg (28.0-33.3); Mean Corpuscular Volume 96.2 fL (83.0-100.0); Monocytes # 0.1 K/mcL (0.0-1.3); Monocytes % 2.5 %; Neutrophils # 4.8 K/mcL (1.6-8.9); Red Blood Count 3.42 M/mcL (3.82-4.97); Red Cell Distribution Width 15.3 % (11.5-14.5); Segmented Neutrophils % 87.2 %; White Blood Count 5.5 K/mcL (4.3-11.1)
[2021-09-10 00:40] LABS: Platelet Count 81 K/mcL (140-400)
[2021-09-10] MEDS: Albuterol 2.5 MG/3 ML NEBULIZER IH SCH ×6 (03:09→23:50)
[2021-09-10] MEDS: Heparin 25,000UNIT/250ML 1/2NS 25,000 UNIT/250 ML IV.SOLN IVC SCH (05:30)
[2021-09-10 06:50] LABS: Alanine Aminotransferase 12 Units/L (7-52); Albumin 3.5 g/dL (3.5-5.7); Alkaline Phosphatase 73 Units/L (34-104); Aspartate Amino Transferase 25 Units/L (13-39); BUN/Creatinine Ratio 35 (6-26); Bilirubin,Total 1.4 mg/dL (0.3-1.0); Blood Urea Nitrogen 17 mg/dL (8-23); Carbon Dioxide 40 mEq/L (23-29); Chloride 93 mEq/L (98-107); Globulin 3.6 g/dL (2.4-3.5); Glucose 229 mg/dL (70-105); Osmolality,Calculated 295 (280-300); Potassium 3.5 mEq/L (3.5-5.1); Sodium 138 mEq/L (136-145); Total Protein 7.1 g/dL (6.4-8.9); eGFR For African Americans > 60 (> 60); eGFR For Non-African Americans > 60 (> 60)
[2021-09-10] MEDS: Insulin LISPRO 300 UNITS/3 ML VIAL SUBQ SCH ×4 (08:03→16:18)
[2021-09-10] MEDS: Furosemide 40 MG/4 ML VIAL IVP SCH ×2 (09:10→20:15)
[2021-09-10] MEDS: lisinopriL 20 MG TABLET PO SCH (09:11)
[2021-09-10] MEDS: Aspirin Enteric Coated 81 MG Tablet PO SCH (09:11)
[2021-09-10] MEDS: clonazePAM 0.5 MG TABLET PO SCH ×2 (09:12→20:15)
[2021-09-10] MEDS: carvediloL 6.25 MG TABLET PO SCH ×2 (09:12→16:18)
[2021-09-10] MEDS: Venlafaxine XR (24 HR) 75 MG CAP.ER.24H PO SCH (09:12)
[2021-09-10] MEDS: Vancomycin 1,500 MG/265 ML IV.SOLN IVPB SCH ×2 (12:02→23:45)
[2021-09-10] MEDS: *HR* Heparin 5,000 UNIT/ML VIAL SQ SCH (17:46)
[2021-09-11 01:30] LABS: Basophils % 0.1 %; Hemoglobin 9.5 g/dL (11.5-15.4); Immature Granulocytes % 0.3 % (0-4); Platelet Count 101 K/mcL (140-400)
[2021-09-11 01:32] LABS: Eosinophils % 0.4 %; Immature Platelets 11.6 % (1.1-6.1); Lymphocytes # 0.9 K/mcL (0.6-4.6); Lymphocytes % 13.4 %; Mean Corpuscular HGB Conc 29.7 g/dL (31.6-35.5); Mean Corpuscular Volume 97.6 fL (83.0-100.0); Mean Platelet Volume 11.6 fL (9.4-12.4); Monocytes # 0.7 K/mcL (0.0-1.3); Monocytes % 10.3 %; Neutrophils # 5.1 K/mcL (1.6-8.9); Red Blood Count 3.28 M/mcL (3.82-4.97); Red Cell Distribution Width 15.1 % (11.5-14.5); Segmented Neutrophils % 75.5 %; White Blood Count 6.7 K/mcL (4.3-11.1)
[2021-09-11 02:17] LABS: Alanine Aminotransferase 15 Units/L (7-52); Albumin 3.3 g/dL (3.5-5.7); Albumin/Globulin Ratio 0.9 (1.1-2.2); Alkaline Phosphatase 75 Units/L (34-104); Aspartate Amino Transferase 28 Units/L (13-39); BUN/Creatinine Ratio 47 (6-26); Bilirubin,Total 1.3 mg/dL (0.3-1.0); Blood Urea Nitrogen 24 mg/dL (8-23); Calcium 8.6 mg/dL (8.6-10.3); Carbon Dioxide 42 mEq/L (23-29); Chloride 93 mEq/L (98-107); Globulin 3.8 g/dL (2.4-3.5); Glucose 179 mg/dL (70-105); Osmolality,Calculated 301 (280-300); Potassium 3.4 mEq/L (3.5-5.1); Sodium 141 mEq/L (136-145); Total Protein 7.1 g/dL (6.4-8.9); eGFR For African Americans > 60 (> 60); eGFR For Non-African Americans > 60 (> 60)
[2021-09-11] MEDS: Albuterol 2.5 MG/3 ML NEBULIZER IH SCH ×6 (04:30→23:28)
[2021-09-11] MEDS: *HR* Heparin 5,000 UNIT/ML VIAL SQ SCH ×2 (06:04→16:03)
[2021-09-11] MEDS ORDERED: hydroCHLOROthiazide 25 MG TABLET PO ONE (08:00)
[2021-09-11] MEDS: lisinopriL 20 MG TABLET PO SCH (08:09)
[2021-09-11] MEDS: Aspirin Enteric Coated 81 MG Tablet PO SCH (08:09)
[2021-09-11] MEDS: clonazePAM 0.5 MG TABLET PO SCH ×2 (08:09→19:20)
[2021-09-11] MEDS: Venlafaxine XR (24 HR) 75 MG CAP.ER.24H PO SCH (08:09)
[2021-09-11] MEDS: carvediloL 6.25 MG TABLET PO SCH ×2 (08:09→16:03)
[2021-09-11] MEDS: Insulin LISPRO 300 UNITS/3 ML VIAL SUBQ SCH ×3 (08:10→16:03)
[2021-09-11] MEDS ORDERED: Furosemide 40 MG/4 ML VIAL IVP ONE (10:00)
[2021-09-11] MEDS: Vancomycin 1,500 MG/265 ML IV.SOLN IVPB SCH ×2 (12:19→23:08)
[2021-09-12 01:43] LABS: Basophils % 0.2 %; Eosinophils % 2.3 %; Immature Granulocytes % 0.2 % (0-4); Mean Corpuscular Volume 98.1 fL (83.0-100.0); Platelet Count 102 K/mcL (140-400); Red Cell Distribution Width 14.9 % (11.5-14.5)
[2021-09-12 01:44] LABS: Eosinophils # 0.1 K/mcL (0.0-0.6); Hematocrit 31.7 % (35.3-44.9); Hemoglobin 9.2 g/dL (11.5-15.4); Immature Platelets 11.4 % (1.1-6.1); Mean Corpuscular Hemoglobin 28.5 pg (28.0-33.3); Red Blood Count 3.23 M/mcL (3.82-4.97); White Blood Count 4.3 K/mcL (4.3-11.1)
[2021-09-12 01:45] LABS: Lymphocytes # 0.9 K/mcL (0.6-4.6); Lymphocytes % 19.7 %; Mean Platelet Volume 12.1 fL (9.4-12.4); Monocytes # 0.7 K/mcL (0.0-1.3); Monocytes % 15.5 %; Neutrophils # 2.7 K/mcL (1.6-8.9); Segmented Neutrophils % 62.1 %
[2021-09-12 02:06] LABS: Alanine Aminotransferase 23 Units/L (7-52); Albumin 3.2 g/dL (3.5-5.7); Albumin/Globulin Ratio 0.9 (1.1-2.2); Alkaline Phosphatase 80 Units/L (34-104); Aspartate Amino Transferase 39 Units/L (13-39); BUN/Creatinine Ratio 33 (6-26); Bilirubin,Total 1.2 mg/dL (0.3-1.0); Blood Urea Nitrogen 20 mg/dL (8-23); Calcium 8.6 mg/dL (8.6-10.3); Carbon Dioxide 42 mEq/L (23-29); Chloride 93 mEq/L (98-107); Globulin 3.6 g/dL (2.4-3.5); Glucose 160 mg/dL (70-105); Osmolality,Calculated 294 (280-300); Potassium 3.9 mEq/L (3.5-5.1); Sodium 139 mEq/L (136-145); Total Protein 6.8 g/dL (6.4-8.9); eGFR For African Americans > 60 (> 60); eGFR For Non-African Americans > 60 (> 60)
[2021-09-12] MEDS: Albuterol 2.5 MG/3 ML NEBULIZER IH SCH ×6 (04:18→23:22)
[2021-09-12] MEDS: *HR* Heparin 5,000 UNIT/ML VIAL SQ SCH ×2 (05:45→19:53)
[2021-09-12] MEDS ORDERED: acetaZOLAMIDE 250 MG in Water for inj. (sterile) 2.5 ML IVP ONE (08:00)
[2021-09-12] MEDS: Insulin LISPRO 300 UNITS/3 ML VIAL SUBQ SCH ×3 (09:10→18:27)
[2021-09-12] MEDS: clonazePAM 0.5 MG TABLET PO SCH ×2 (09:11→20:01)
[2021-09-12] MEDS: lisinopriL 20 MG TABLET PO SCH (09:11)
[2021-09-12] MEDS: Venlafaxine XR (24 HR) 75 MG CAP.ER.24H PO SCH (09:11)
[2021-09-12] MEDS: carvediloL 6.25 MG TABLET PO SCH ×2 (09:11→19:53)
[2021-09-12] MEDS: Aspirin Enteric Coated 81 MG Tablet PO SCH (09:11)
[2021-09-12] MEDS: Vancomycin 1,500 MG/265 ML IV.SOLN IVPB SCH (13:04)
[2021-09-13] MEDS: Vancomycin 1,500 MG/265 ML IV.SOLN IVPB SCH ×3 (00:07→23:39)
[2021-09-13] MEDS: Albuterol 2.5 MG/3 ML NEBULIZER IH SCH ×5 (03:31→20:11)
[2021-09-13] MEDS: *HR* Heparin 5,000 UNIT/ML VIAL SQ SCH ×2 (05:50→16:52)
[2021-09-13] MEDS: acetaZOLAMIDE 250 MG in Water for inj. (sterile) 2.5 ML IVP SCH (08:07)
[2021-09-13] MEDS: Venlafaxine XR (24 HR) 75 MG CAP.ER.24H PO SCH (08:08)
[2021-09-13] MEDS: Insulin LISPRO 300 UNITS/3 ML VIAL SUBQ SCH ×3 (08:08→17:04)
[2021-09-13] MEDS: Acetaminophen 325 MG TABLET PO PRN (08:08)
[2021-09-13] MEDS: carvediloL 6.25 MG TABLET PO SCH ×2 (08:08→17:05)
[2021-09-13] MEDS: Aspirin Enteric Coated 81 MG Tablet PO SCH (08:09)
[2021-09-13] MEDS: lisinopriL 20 MG TABLET PO SCH (08:09)
[2021-09-13] MEDS: clonazePAM 0.5 MG TABLET PO SCH ×2 (12:55→19:39)
[2021-09-14] MEDS: Albuterol 2.5 MG/3 ML NEBULIZER IH SCH ×7 (00:09→23:58)
[2021-09-14 04:10] LABS: Hematocrit 31.1 % (35.3-44.9); Hemoglobin 9.2 g/dL (11.5-15.4); Mean Corpuscular HGB Conc 29.6 g/dL (31.6-35.5); Mean Corpuscular Hemoglobin 29.2 pg (28.0-33.3); Mean Corpuscular Volume 98.7 fL (83.0-100.0); Platelet Count 113 K/mcL (140-400); Red Blood Count 3.15 M/mcL (3.82-4.97); White Blood Count 5.3 K/mcL (4.3-11.1)
[2021-09-14 04:20] LABS: Estimated Average Glucose 114 mg/dl; Hemoglobin A1C 5.6 %
[2021-09-14 04:38] LABS: BUN/Creatinine Ratio 25 (6-26); Blood Urea Nitrogen 13 mg/dL (8-23); Calcium 9.2 mg/dL (8.6-10.3); Carbon Dioxide 41 mEq/L (23-29); Chloride 97 mEq/L (98-107); Glucose 180 mg/dL (70-105); Osmolality,Calculated 295 (280-300); Potassium 4.1 mEq/L (3.5-5.1); Sodium 140 mEq/L (136-145); eGFR For African Americans > 60 (> 60); eGFR For Non-African Americans > 60 (> 60)
[2021-09-14] MEDS: *HR* Heparin 5,000 UNIT/ML VIAL SQ SCH ×2 (05:44→16:54)
[2021-09-14] MEDS: clonazePAM 0.5 MG TABLET PO SCH ×2 (07:53→20:35)
[2021-09-14] MEDS: Venlafaxine XR (24 HR) 75 MG CAP.ER.24H PO SCH (07:53)
[2021-09-14] MEDS: carvediloL 6.25 MG TABLET PO SCH ×3 (07:53→16:45)
[2021-09-14] MEDS: Aspirin Enteric Coated 81 MG Tablet PO SCH (07:53)
[2021-09-14] MEDS: lisinopriL 20 MG TABLET PO SCH (07:53)
[2021-09-14] MEDS: Insulin LISPRO 300 UNITS/3 ML VIAL SUBQ SCH ×3 (07:53→16:34)
[2021-09-14] MEDS: acetaZOLAMIDE 250 MG in Water for inj. (sterile) 2.5 ML IVP SCH (08:05)
[2021-09-14] MEDS ORDERED: cefTRIAXone 1,000 MG in 0.9 % Sodium Chloride Mini Bag 100 ML IVPB SCH (13:00)
[2021-09-14] MEDS ORDERED: cephALEXin 500 MG CAPSULE PO SCH (13:00)
[2021-09-14] MEDS: Bumetanide 1 MG TABLET PO SCH (16:54)
[2021-09-15] MEDS: Albuterol 2.5 MG/3 ML NEBULIZER IH SCH ×4 (04:12→15:32)
[2021-09-15 05:29] LABS: Hematocrit 30.2 % (35.3-44.9); Hemoglobin 8.8 g/dL (11.5-15.4); Mean Corpuscular HGB Conc 29.1 g/dL (31.6-35.5); Mean Corpuscular Hemoglobin 28.9 pg (28.0-33.3); Platelet Count 117 K/mcL (140-400); Red Blood Count 3.05 M/mcL (3.82-4.97); White Blood Count 5.1 K/mcL (4.3-11.1)
[2021-09-15] MEDS: *HR* Heparin 5,000 UNIT/ML VIAL SQ SCH (05:33)
[2021-09-15 05:49] LABS: BUN/Creatinine Ratio 22 (6-26); Blood Urea Nitrogen 14 mg/dL (8-23); Calcium 9.3 mg/dL (8.6-10.3); Carbon Dioxide 42 mEq/L (23-29); Chloride 95 mEq/L (98-107); Glucose 164 mg/dL (70-105); Osmolality,Calculated 294 (280-300); Potassium 3.7 mEq/L (3.5-5.1); Sodium 140 mEq/L (136-145); eGFR For African Americans > 60 (> 60); eGFR For Non-African Americans > 60 (> 60)
[2021-09-15 06:59] VITALS: O2SAT 99
[2021-09-15] MEDS: clonazePAM 0.5 MG TABLET PO SCH (07:24)
[2021-09-15] MEDS: Aspirin Enteric Coated 81 MG Tablet PO SCH (07:24)
[2021-09-15] MEDS: Insulin LISPRO 300 UNITS/3 ML VIAL SUBQ SCH ×2 (07:24→11:28)
[2021-09-15] MEDS: carvediloL 6.25 MG TABLET PO SCH (07:24)
[2021-09-15] MEDS: Bumetanide 1 MG TABLET PO SCH (07:24)
[2021-09-15] MEDS: lisinopriL 20 MG TABLET PO SCH (07:24)
[2021-09-15] MEDS: Venlafaxine XR (24 HR) 75 MG CAP.ER.24H PO SCH (07:24)
[2021-09-15] MEDS ORDERED: cefTRIAXone 2,000 MG in Water for inj. (sterile) 20 ML IVP SCH (08:00)
[2021-09-15 11:28] VITALS: BP 144/68; PULSE 54; TEMP 97.8
== END 2021-09-15 16:04 | disposition home health service (06) | DRG 871 ==
LOC: 3BNU 17:56 → EMEROOARM 17:56 → 3BNU 09-09 01:35 → SUATTDRO 09-09 14:53
PROVIDERS: ADMIT Student in an Organized Health Care Education/Training Program; ATTEND Registered Nurse

== ENCOUNTER 2022-03-21 14:39 | Inpatient (IN) ==
[2022-03-21] MEDS ORDERED: *HR* Metoprolol 5 MG/5 ML VIAL IVP STA (16:20)
[2022-03-21] MEDS ORDERED: Amiodarone Premix 150 MG/100 ML BAG IVPB ONE ×2 (17:14→18:24)
[2022-03-21 17:34] LABS: Basophils % 0.8 %; Eosinophils # 0.1 K/mcL (0.0-0.6); Eosinophils % 1.4 %; Hematocrit 29.4 % (35.3-44.9); Hemoglobin 9.1 g/dL (11.5-15.4); INR 1.2; Immature Granulocytes % 0.4 % (0-4); Lymphocytes # 1.1 K/mcL (0.6-4.6); Mean Corpuscular Hemoglobin 29.2 pg (28.0-33.3); Mean Corpuscular Volume 94.2 fL (83.0-100.0); Mean Platelet Volume 11.9 fL (9.4-12.4); Monocytes # 0.6 K/mcL (0.0-1.3); Monocytes % 11.5 %; Neutrophils # 3.3 K/mcL (1.6-8.9); Platelet Count 145 K/mcL (140-400); Prothrombin Time 13.9 Seconds (9.4-12.1); Red Blood Count 3.12 M/mcL (3.82-4.97); Red Cell Distribution Width 15.5 % (11.5-14.5); Segmented Neutrophils % 63.9 %; White Blood Count 5.1 K/mcL (4.3-11.1)
[2022-03-21 17:37] LABS: Activated Partial Thrombo Time 33.4 Seconds (26.0-36.0)
[2022-03-21] MEDS ORDERED: 0.9 % Sodium Chloride 500 ML IVC ONE (17:51)
[2022-03-21 17:53] LABS: Alanine Aminotransferase 17 Units/L (7-52); Albumin 3.8 g/dL (3.5-5.7); Alkaline Phosphatase 90 Units/L (34-104); Aspartate Amino Transferase 25 Units/L (13-39); BUN/Creatinine Ratio 36 (6-26); Bilirubin,Direct 0.3 mg/dL (0.0-0.2); Bilirubin,Total 1.3 mg/dL (0.3-1.0); Blood Urea Nitrogen 32 mg/dL (8-23); Calcium 9.2 mg/dL (8.6-10.3); Carbon Dioxide 34 mEq/L (23-29); Chloride 95 mEq/L (98-107); Globulin 3.8 g/dL (2.4-3.5); Glucose 126 mg/dL (70-105); Magnesium 2.1 mg/dL (1.6-2.6); Osmolality,Calculated 290 (280-300); Potassium 4.7 mEq/L (3.5-5.1); Sodium 136 mEq/L (136-145); Total Protein 7.6 g/dL (6.4-8.9); Troponin I 0.05 ng/mL (< 0.04); eGFR For African Americans > 60 (> 60); eGFR For Non-African Americans > 60 (> 60)
[2022-03-21] MEDS ORDERED: Amiodarone Premix 360 MG/200 ML BAG IVC ONE (18:24)
[2022-03-21] MEDS ORDERED: *HR* Heparin 5,000 UNIT/ML VIAL IVP ONE (18:26)
[2022-03-21] MEDS ORDERED: *HR* Heparin 5,000 UNIT/ML VIAL IVP PRN (18:26)
[2022-03-21] MEDS: Heparin 25,000UNIT/250ML 1/2NS 25,000 UNIT/250 ML IV.SOLN IVC SCH (18:55)
[2022-03-21] MEDS ORDERED: Naloxone 0.4 MG/ML INJ IVP PRN (19:23)
[2022-03-21] MEDS ORDERED: Ondansetron 4 MG/2 ML VIAL IVP PRN (19:23)
[2022-03-21] MEDS ORDERED: Dextrose Gel 15 GM/37.5 ML TUBE PO PRN ×2 (21:03)
[2022-03-21] MEDS ORDERED: D5% in Water 1,000 ML IVC PRN (21:03)
[2022-03-21] MEDS ORDERED: *HR* Dextrose 50 % in Water (Syg) 50 ML SYRINGE IVP PRN (21:03)
[2022-03-21] MEDS ORDERED: Perflutren Lipid Microsphere 1.3 ML in 0.9 % Sodium Chloride 8.7 ML IVP PRN (21:09)
[2022-03-21] MEDS ORDERED: Insulin LISPRO 300 UNITS/3 ML VIAL SUBQ SCH (21:15)
[2022-03-21] MEDS: carvediloL 6.25 MG TABLET PO SCH (21:33)
[2022-03-21] MEDS: clonazePAM 0.5 MG TABLET PO SCH (21:33)
[2022-03-22] MEDS: Insulin LISPRO 300 UNITS/3 ML VIAL SUBQ SCH ×4 (00:13→18:12)
[2022-03-22] MEDS ORDERED: Amiodarone Premix 360 MG/200 ML BAG IVC SCH (00:25)
[2022-03-22 05:20] LABS: Basophils % 0.7 %; Eosinophils # 0.1 K/mcL (0.0-0.6); Eosinophils % 1.9 %; Hematocrit 27.6 % (35.3-44.9); Hemoglobin 8.4 g/dL (11.5-15.4); Immature Granulocytes % 0.2 % (0-4); Immature Platelets 10.3 % (1.1-6.1); Lymphocytes % 24.1 %; Mean Corpuscular HGB Conc 30.4 g/dL (31.6-35.5); Mean Corpuscular Hemoglobin 29.4 pg (28.0-33.3); Mean Corpuscular Volume 96.5 fL (83.0-100.0); Mean Platelet Volume 11.9 fL (9.4-12.4); Monocytes # 0.6 K/mcL (0.0-1.3); Neutrophils # 2.5 K/mcL (1.6-8.9); Platelet Count 124 K/mcL (140-400); Red Blood Count 2.86 M/mcL (3.82-4.97); Red Cell Distribution Width 15.5 % (11.5-14.5); Segmented Neutrophils % 60.1 %; White Blood Count 4.2 K/mcL (4.3-11.1)
[2022-03-22 05:23] LABS: INR 1.3; Prothrombin Time 14.3 Seconds (9.4-12.1)
[2022-03-22 05:39] LABS: BUN/Creatinine Ratio 38 (6-26); Blood Urea Nitrogen 33 mg/dL (8-23); Carbon Dioxide 30 mEq/L (23-29); Chloride 96 mEq/L (98-107); Glucose 135 mg/dL (70-105); Magnesium 2.1 mg/dL (1.6-2.6); Osmolality,Calculated 291 (280-300); Phosphorous 3.8 mg/dL (2.7-4.5); Potassium 4.2 mEq/L (3.5-5.1); Sodium 136 mEq/L (136-145); eGFR For African Americans > 60 (> 60); eGFR For Non-African Americans > 60 (> 60)
[2022-03-22 05:50] LABS: Thyroid Stimulating Hormone 4.104 mcIU/mL (0.340-5.600)
[2022-03-22] MEDS ORDERED: Tiotropium 10 INH DOSE IH ONE (07:15)
[2022-03-22] MEDS: Tiotropium 10 INH DOSE IH SCH (07:23)
[2022-03-22] MEDS: Aspirin 81 MG TAB.CHEW PO SCH (09:28)
[2022-03-22] MEDS: Loratadine 10 MG TABLET PO SCH (09:28)
[2022-03-22] MEDS: carvediloL 6.25 MG TABLET PO SCH ×2 (09:28→18:09)
[2022-03-22] MEDS: Venlafaxine XR (24 HR) 75 MG CAP.ER.24H PO SCH (09:29)
[2022-03-22] MEDS: lisinopriL 20 MG TABLET PO SCH (09:29)
[2022-03-22] MEDS: clonazePAM 0.5 MG TABLET PO SCH ×2 (09:29→20:16)
[2022-03-22] MEDS ORDERED: DilTIAZem 50 MG in 0.9 % Sodium Chloride 40 ML IVC SCH (10:15)
[2022-03-22] MEDS: DilTIAZem 50 MG in 0.9 % Sodium Chloride 40 ML IVC SCH (11:01)
[2022-03-22] MEDS ORDERED: Furosemide 20 MG/2 ML VIAL IVP ONE (18:12)
[2022-03-22] MEDS: *HR* Heparin 5,000 UNIT/ML VIAL IVP PRN (20:16)
[2022-03-22 20:49] LABS: Adenovirus Not Detected (Not Detect); Bordetella Pertussis Not Detected (Not Detect); Chlamydophila pneumoniae Not Detected (Not Detect); Coronavirus 229E Not Detected (Not Detect); Coronavirus HKU1 Not Detected (Not Detect); Coronavirus NL63 Not Detected (Not Detect); Coronavirus OC43 Not Detected (Not Detect); Human Metapneumovirus Not Detected (Not Detect); Human Rhinovirus/Enterovirus Not Detected (Not Detect); Influenza A Subtype 2009 H1 Not Detected (Not Detect); Influenza B Not Detected (Not Detect); Mycoplasma pneumoniae Not Detected (Not Detect); Parainfluenza Virus 1 Not Detected (Not Detect); Parainfluenza Virus 2 Not Detected (Not Detect); Parainfluenza Virus 3 Not Detected (Not Detect); Parainfluenza Virus 4 Not Detected (Not Detect); Respiratory Syncytial Virus Not Detected (Not Detect); SARS-CoV-2 Not Detected (Not Detect)
[2022-03-22] MEDS ORDERED: Furosemide 20 MG/2 ML VIAL IVP SCH (21:00)
[2022-03-22] MEDS: Heparin 25,000UNIT/250ML 1/2NS 25,000 UNIT/250 ML IV.SOLN IVC SCH (22:02)
[2022-03-23] MEDS: Insulin LISPRO 300 UNITS/3 ML VIAL SUBQ SCH ×4 (00:21→18:09)
[2022-03-23 05:16] LABS: Hematocrit 29.2 % (35.3-44.9); Hemoglobin 8.7 g/dL (11.5-15.4); Mean Corpuscular HGB Conc 29.8 g/dL (31.6-35.5); Mean Corpuscular Hemoglobin 29.3 pg (28.0-33.3); Mean Corpuscular Volume 98.3 fL (83.0-100.0); Mean Platelet Volume 12.4 fL (9.4-12.4); Platelet Count 110 K/mcL (140-400); Red Blood Count 2.97 M/mcL (3.82-4.97); Red Cell Distribution Width 15.7 % (11.5-14.5)
[2022-03-23 05:37] LABS: BUN/Creatinine Ratio 31 (6-26); Blood Urea Nitrogen 27 mg/dL (8-23); Calcium 9.3 mg/dL (8.6-10.3); Carbon Dioxide 30 mEq/L (23-29); Chloride 99 mEq/L (98-107); Glucose 129 mg/dL (70-105); Magnesium 1.9 mg/dL (1.6-2.6); Osmolality,Calculated 287 (280-300); Potassium 4.4 mEq/L (3.5-5.1); Sodium 135 mEq/L (136-145); eGFR For African Americans > 60 (> 60); eGFR For Non-African Americans > 60 (> 60)
[2022-03-23] MEDS: DilTIAZem 50 MG in 0.9 % Sodium Chloride 40 ML IVC SCH ×2 (06:01→17:50)
[2022-03-23] MEDS ORDERED: Bumetanide 1 MG/4 ML VIAL IVP SCH (08:00)
[2022-03-23] MEDS: Aspirin 81 MG TAB.CHEW PO SCH (08:19)
[2022-03-23] MEDS: clonazePAM 0.5 MG TABLET PO SCH ×2 (08:19→20:15)
[2022-03-23] MEDS: lisinopriL 20 MG TABLET PO SCH (08:20)
[2022-03-23] MEDS: carvediloL 6.25 MG TABLET PO SCH ×2 (08:20→18:07)
[2022-03-23] MEDS: Venlafaxine XR (24 HR) 75 MG CAP.ER.24H PO SCH (08:20)
[2022-03-23] MEDS: Loratadine 10 MG TABLET PO SCH (08:20)
[2022-03-23] MEDS: Tiotropium 10 INH DOSE IH SCH (08:38)
[2022-03-23] MEDS: predniSONE 20 MG TABLET PO SCH (13:27)
[2022-03-23] MEDS: Levalbuterol Neb 0.63 MG/3 ML IH SCH ×2 (16:00→23:09)
[2022-03-23] MEDS: Bumetanide 1 MG/4 ML VIAL IVP SCH (18:08)
[2022-03-23] MEDS: Heparin 25,000UNIT/250ML 1/2NS 25,000 UNIT/250 ML IV.SOLN IVC SCH (22:09)
[2022-03-24] MEDS: Insulin LISPRO 300 UNITS/3 ML VIAL SUBQ SCH ×4 (01:54→16:36)
[2022-03-24] MEDS: DilTIAZem 50 MG in 0.9 % Sodium Chloride 40 ML IVC SCH ×2 (01:55→04:59)
[2022-03-24 05:01] LABS: Basophils % 0.3 %; Eosinophils % 0.3 %; Immature Granulocytes % 0.3 % (0-4)
[2022-03-24 05:02] LABS: Hematocrit 27.1 % (35.3-44.9); Immature Platelets 9.1 % (1.1-6.1); Mean Corpuscular HGB Conc 29.5 g/dL (31.6-35.5); Mean Corpuscular Hemoglobin 28.7 pg (28.0-33.3); Mean Corpuscular Volume 97.1 fL (83.0-100.0); Mean Platelet Volume 12.1 fL (9.4-12.4); Red Blood Count 2.79 M/mcL (3.82-4.97); Red Cell Distribution Width 15.4 % (11.5-14.5); Segmented Neutrophils % 72.3 %; White Blood Count 3.5 K/mcL (4.3-11.1)
[2022-03-24 05:03] LABS: Lymphocytes # 0.5 K/mcL (0.6-4.6); Lymphocytes % 14.8 %; Monocytes # 0.4 K/mcL (0.0-1.3); Neutrophils # 2.5 K/mcL (1.6-8.9)
[2022-03-24 05:07] LABS: Platelet Count 96 K/mcL (140-400)
[2022-03-24 05:13] LABS: BUN/Creatinine Ratio 31 (6-26); Blood Urea Nitrogen 29 mg/dL (8-23); Carbon Dioxide 37 mEq/L (23-29); Chloride 97 mEq/L (98-107); Glucose 187 mg/dL (70-105); Osmolality,Calculated 293 (280-300); Potassium 4.1 mEq/L (3.5-5.1); Sodium 136 mEq/L (136-145); eGFR For African Americans > 60 (> 60); eGFR For Non-African Americans 59 (> 60)
[2022-03-24] MEDS: *HR* Heparin 5,000 UNIT/ML VIAL IVP PRN (05:23)
[2022-03-24] MEDS: Levalbuterol Neb 0.63 MG/3 ML IH SCH ×3 (07:46→23:11)
[2022-03-24] MEDS: Tiotropium 10 INH DOSE IH SCH (07:46)
[2022-03-24] MEDS: clonazePAM 0.5 MG TABLET PO SCH ×2 (08:41→21:03)
[2022-03-24] MEDS: Spironolactone 12.5 MG TABLET PO SCH (08:41)
[2022-03-24] MEDS: Loratadine 10 MG TABLET PO SCH (08:41)
[2022-03-24] MEDS: carvediloL 6.25 MG TABLET PO SCH ×2 (08:41→16:34)
[2022-03-24] MEDS: lisinopriL 20 MG TABLET PO SCH (08:41)
[2022-03-24] MEDS: Venlafaxine XR (24 HR) 75 MG CAP.ER.24H PO SCH (08:41)
[2022-03-24] MEDS: Bumetanide 1 MG/4 ML VIAL IVP SCH ×2 (08:41→16:36)
[2022-03-24] MEDS: Aspirin 81 MG TAB.CHEW PO SCH (08:41)
[2022-03-24] MEDS: predniSONE 20 MG TABLET PO SCH (08:42)
[2022-03-24] MEDS: Heparin 25,000UNIT/250ML 1/2NS 25,000 UNIT/250 ML IV.SOLN IVC SCH (17:23)
[2022-03-25] MEDS: Insulin LISPRO 300 UNITS/3 ML VIAL SUBQ SCH ×8 (02:17→20:35)
[2022-03-25 04:42] LABS: Eosinophils % 0.6 %; Hematocrit 26.7 % (35.3-44.9); Hemoglobin 8.1 g/dL (11.5-15.4); Immature Granulocytes % 0.4 % (0-4); Mean Corpuscular HGB Conc 30.3 g/dL (31.6-35.5)
[2022-03-25 04:45] LABS: Basophils % 0.2 %; Immature Platelets 12.7 % (1.1-6.1); Lymphocytes # 0.7 K/mcL (0.6-4.6); Lymphocytes % 13.7 %; Mean Corpuscular Hemoglobin 29.5 pg (28.0-33.3); Mean Corpuscular Volume 97.1 fL (83.0-100.0); Mean Platelet Volume 12.1 fL (9.4-12.4); Monocytes # 0.6 K/mcL (0.0-1.3); Monocytes % 10.8 %; Neutrophils # 3.9 K/mcL (1.6-8.9); Red Blood Count 2.75 M/mcL (3.82-4.97); Red Cell Distribution Width 15.2 % (11.5-14.5); Segmented Neutrophils % 74.3 %; White Blood Count 5.2 K/mcL (4.3-11.1)
[2022-03-25 04:46] LABS: Platelet Count 97 K/mcL (140-400)
[2022-03-25 05:02] LABS: BUN/Creatinine Ratio 38 (6-26); Blood Urea Nitrogen 35 mg/dL (8-23); Calcium 8.9 mg/dL (8.6-10.3); Carbon Dioxide 34 mEq/L (23-29); Chloride 96 mEq/L (98-107); Glucose 170 mg/dL (70-105); Magnesium 1.6 mg/dL (1.6-2.6); Osmolality,Calculated 294 (280-300); Phosphorous 3.6 mg/dL (2.7-4.5); Potassium 4.3 mEq/L (3.5-5.1); Sodium 136 mEq/L (136-145); eGFR For African Americans > 60 (> 60); eGFR For Non-African Americans > 60 (> 60)
[2022-03-25] MEDS ORDERED: Dextrose Gel 15 GM/37.5 ML TUBE PO PRN ×2 (06:19)
[2022-03-25] MEDS ORDERED: D5% in Water 1,000 ML IVC PRN (06:19)
[2022-03-25] MEDS ORDERED: *HR* Dextrose 50 % in Water (Syg) 50 ML SYRINGE IVP PRN (06:19)
[2022-03-25] MEDS: Tiotropium 10 INH DOSE IH SCH (07:21)
[2022-03-25] MEDS: Levalbuterol Neb 0.63 MG/3 ML IH SCH (07:21)
[2022-03-25] MEDS: DilTIAZem 50 MG in 0.9 % Sodium Chloride 40 ML IVC SCH ×2 (07:45→08:28)
[2022-03-25] MEDS ORDERED: carvediloL 6.25 MG TABLET PO SCH (08:00)
[2022-03-25] MEDS: predniSONE 20 MG TABLET PO SCH (08:27)
[2022-03-25] MEDS: Bumetanide 1 MG/4 ML VIAL IVP SCH (08:27)
[2022-03-25] MEDS: Venlafaxine XR (24 HR) 75 MG CAP.ER.24H PO SCH (08:27)
[2022-03-25] MEDS: Aspirin 81 MG TAB.CHEW PO SCH (08:27)
[2022-03-25] MEDS: Spironolactone 12.5 MG TABLET PO SCH (08:27)
[2022-03-25] MEDS: lisinopriL 20 MG TABLET PO SCH (08:27)
[2022-03-25] MEDS: Loratadine 10 MG TABLET PO SCH (08:27)
[2022-03-25] MEDS: clonazePAM 0.5 MG TABLET PO SCH ×2 (08:27→20:35)
[2022-03-25] MEDS ORDERED: *HR* Metoprolol 5 MG/5 ML VIAL IVP ONE (08:28)
[2022-03-25] MEDS ORDERED: *HR* Metoprolol 5 MG/5 ML VIAL IVP PRN (08:28)
[2022-03-25 11:17] LABS: % Iron Saturation 3 % (15-50); Iron 13 mcg/dL (50-170); Transferrin 342 mg/dL (203-362)
[2022-03-25 11:36] LABS: Ferritin 18 ng/mL (10-120)
[2022-03-25] MEDS: Heparin 25,000UNIT/250ML 1/2NS 25,000 UNIT/250 ML IV.SOLN IVC SCH (17:25)
[2022-03-25] MEDS: Iron Sucrose Complex 250 MG in 0.9 % Sodium Chloride 250 ML IVPB SCH (17:25)
[2022-03-26 04:41] LABS: Basophils % 0.3 %; Eosinophils % 0.3 %; Hematocrit 27.7 % (35.3-44.9); Hemoglobin 8.6 g/dL (11.5-15.4); Immature Granulocytes % 0.4 % (0-4); Lymphocytes # 1.3 K/mcL (0.6-4.6); Lymphocytes % 16.7 %; Mean Corpuscular Hemoglobin 29.9 pg (28.0-33.3); Mean Corpuscular Volume 96.2 fL (83.0-100.0); Mean Platelet Volume 12.1 fL (9.4-12.4); Monocytes % 12.4 %; Neutrophils # 5.4 K/mcL (1.6-8.9); Platelet Count 127 K/mcL (140-400); Red Blood Count 2.88 M/mcL (3.82-4.97); Red Cell Distribution Width 15.5 % (11.5-14.5); Segmented Neutrophils % 69.9 %; White Blood Count 7.7 K/mcL (4.3-11.1)
[2022-03-26 04:59] LABS: % Iron Saturation 99 % (15-50); BUN/Creatinine Ratio 48 (6-26); Blood Urea Nitrogen 49 mg/dL (8-23); Calcium 9.2 mg/dL (8.6-10.3); Carbon Dioxide 32 mEq/L (23-29); Chloride 96 mEq/L (98-107); Glucose 155 mg/dL (70-105); Iron 482 mcg/dL (50-170); Osmolality,Calculated 296 (280-300); Potassium 4.2 mEq/L (3.5-5.1); Sodium 135 mEq/L (136-145); Transferrin 347 mg/dL (203-362); eGFR For African Americans > 60 (> 60); eGFR For Non-African Americans 53 (> 60)
[2022-03-26] MEDS: Tiotropium 10 INH DOSE IH SCH (07:48)
[2022-03-26] MEDS: Bumetanide 1 MG/4 ML VIAL IVP SCH (08:30)
[2022-03-26] MEDS: Spironolactone 12.5 MG TABLET PO SCH (08:31)
[2022-03-26] MEDS: Aspirin 81 MG TAB.CHEW PO SCH (08:31)
[2022-03-26] MEDS: lisinopriL 20 MG TABLET PO SCH (08:32)
[2022-03-26] MEDS: clonazePAM 0.5 MG TABLET PO SCH ×2 (08:32→20:04)
[2022-03-26] MEDS: Venlafaxine XR (24 HR) 75 MG CAP.ER.24H PO SCH (08:32)
[2022-03-26] MEDS: Loratadine 10 MG TABLET PO SCH (08:32)
[2022-03-26] MEDS: predniSONE 20 MG TABLET PO SCH (08:33)
[2022-03-26] MEDS: Insulin LISPRO 300 UNITS/3 ML VIAL SUBQ SCH ×4 (08:35→20:09)
[2022-03-26] MEDS: *HR* Enoxaparin 100 MG/ML SYRINGE SQ SCH ×2 (09:26→17:11)
[2022-03-26] MEDS: Iron Sucrose Complex 250 MG in 0.9 % Sodium Chloride 250 ML IVPB SCH (09:56)
[2022-03-26] MEDS: Levalbuterol Neb 0.63 MG/3 ML IH SCH ×2 (16:07→23:04)
[2022-03-26] MEDS: Acetaminophen 325 MG TABLET PO PRN (18:12)
[2022-03-27] MEDS: *HR* Enoxaparin 100 MG/ML SYRINGE SQ SCH ×2 (05:12→18:10)
[2022-03-27 05:49] LABS: Basophils % 0.5 %; Eosinophils # 0.1 K/mcL (0.0-0.6); Eosinophils % 0.9 %; Hematocrit 29.8 % (35.3-44.9); Hemoglobin 8.9 g/dL (11.5-15.4); Immature Granulocytes % 0.5 % (0-4); Lymphocytes # 1.8 K/mcL (0.6-4.6); Mean Corpuscular HGB Conc 29.9 g/dL (31.6-35.5); Mean Corpuscular Hemoglobin 29.3 pg (28.0-33.3); Mean Platelet Volume 11.9 fL (9.4-12.4); Monocytes # 1.2 K/mcL (0.0-1.3); Neutrophils # 5.4 K/mcL (1.6-8.9); Nucleated Red Blood Cells 0.4 /100 WBC (0); Platelet Count 159 K/mcL (140-400); Red Blood Count 3.04 M/mcL (3.82-4.97); Red Cell Distribution Width 15.9 % (11.5-14.5); Segmented Neutrophils % 63.1 %; White Blood Count 8.5 K/mcL (4.3-11.1)
[2022-03-27 06:06] LABS: BUN/Creatinine Ratio 41 (6-26); Blood Urea Nitrogen 41 mg/dL (8-23); Calcium 9.4 mg/dL (8.6-10.3); Carbon Dioxide 36 mEq/L (23-29); Chloride 93 mEq/L (98-107); Glucose 156 mg/dL (70-105); Magnesium 1.8 mg/dL (1.6-2.6); Osmolality,Calculated 295 (280-300); Potassium 3.8 mEq/L (3.5-5.1); Sodium 136 mEq/L (136-145); eGFR For African Americans > 60 (> 60); eGFR For Non-African Americans 54 (> 60)
[2022-03-27] MEDS: Levalbuterol Neb 0.63 MG/3 ML IH SCH ×3 (07:49→21:53)
[2022-03-27] MEDS: Tiotropium 10 INH DOSE IH SCH (07:49)
[2022-03-27] MEDS: Insulin LISPRO 300 UNITS/3 ML VIAL SUBQ SCH ×4 (08:55→21:23)
[2022-03-27] MEDS: clonazePAM 0.5 MG TABLET PO SCH ×2 (08:56→19:42)
[2022-03-27] MEDS: Acetaminophen 325 MG TABLET PO PRN (08:56)
[2022-03-27] MEDS: Loratadine 10 MG TABLET PO SCH (08:57)
[2022-03-27] MEDS: Spironolactone 12.5 MG TABLET PO SCH (08:57)
[2022-03-27] MEDS: Aspirin 81 MG TAB.CHEW PO SCH (08:58)
[2022-03-27] MEDS: Venlafaxine XR (24 HR) 75 MG CAP.ER.24H PO SCH (08:58)
[2022-03-27] MEDS: predniSONE 20 MG TABLET PO SCH (08:58)
[2022-03-27] MEDS ORDERED: Bumetanide 1 MG/4 ML VIAL IVP SCH (09:00)
[2022-03-27] MEDS: Iron Sucrose Complex 250 MG in 0.9 % Sodium Chloride 250 ML IVPB SCH (09:07)
[2022-03-27] MEDS ORDERED: Metoprolol XL (24 HR) Succ 50 MG TAB.ER.24H PO SCH (16:00)
[2022-03-28 02:06] LABS: Basophils % 0.3 %; Eosinophils % 0.4 %; Hematocrit 27.6 % (35.3-44.9); Hemoglobin 8.4 g/dL (11.5-15.4); Immature Granulocytes % 0.7 % (0-4); Lymphocytes % 13.1 %; Mean Corpuscular HGB Conc 30.4 g/dL (31.6-35.5); Mean Corpuscular Hemoglobin 29.4 pg (28.0-33.3); Mean Corpuscular Volume 96.5 fL (83.0-100.0); Mean Platelet Volume 11.9 fL (9.4-12.4); Monocytes # 0.9 K/mcL (0.0-1.3); Monocytes % 11.4 %; Neutrophils # 5.5 K/mcL (1.6-8.9); Nucleated Red Blood Cells 0.8 /100 WBC (0); Platelet Count 141 K/mcL (140-400); Red Blood Count 2.86 M/mcL (3.82-4.97); Red Cell Distribution Width 15.8 % (11.5-14.5); Segmented Neutrophils % 74.1 %; White Blood Count 7.5 K/mcL (4.3-11.1)
[2022-03-28 02:12] LABS: INR 1.3; Prothrombin Time 14.7 Seconds (9.4-12.1)
[2022-03-28 02:24] LABS: BUN/Creatinine Ratio 41 (6-26); Blood Urea Nitrogen 38 mg/dL (8-23); Calcium 9.3 mg/dL (8.6-10.3); Carbon Dioxide 34 mEq/L (23-29); Chloride 96 mEq/L (98-107); Glucose 192 mg/dL (70-105); Osmolality,Calculated 298 (280-300); Potassium 4.1 mEq/L (3.5-5.1); Sodium 137 mEq/L (136-145); eGFR For African Americans > 60 (> 60); eGFR For Non-African Americans > 60 (> 60)
[2022-03-28] MEDS: *HR* Enoxaparin 100 MG/ML SYRINGE SQ SCH ×2 (06:13→17:20)
[2022-03-28] MEDS: Levalbuterol Neb 0.63 MG/3 ML IH SCH ×3 (07:23→23:19)
[2022-03-28] MEDS: Tiotropium 10 INH DOSE IH SCH (07:23)
[2022-03-28] MEDS ORDERED: DilTIAZem CD (24hr) 120 MG CAP.ER.24H PO ONE (08:05)
[2022-03-28] MEDS: Aspirin 81 MG TAB.CHEW PO SCH (08:18)
[2022-03-28] MEDS: Spironolactone 12.5 MG TABLET PO SCH (08:18)
[2022-03-28] MEDS: Venlafaxine XR (24 HR) 75 MG CAP.ER.24H PO SCH (08:20)
[2022-03-28] MEDS: predniSONE 20 MG TABLET PO SCH (08:20)
[2022-03-28] MEDS: clonazePAM 0.5 MG TABLET PO SCH ×2 (08:20→21:01)
[2022-03-28] MEDS: Loratadine 10 MG TABLET PO SCH (08:20)
[2022-03-28] MEDS: Iron Sucrose Complex 250 MG in 0.9 % Sodium Chloride 250 ML IVPB SCH (08:21)
[2022-03-28] MEDS: Insulin LISPRO 300 UNITS/3 ML VIAL SUBQ SCH ×4 (08:28→21:04)
[2022-03-28] MEDS ORDERED: Metoprolol XL (24 HR) Succ 50 MG TAB.ER.24H PO SCH (09:00)
[2022-03-28] MEDS ORDERED: Bumetanide 1 MG TABLET PO SCH (09:00)
[2022-03-28] MEDS ORDERED: Iron Polysaccharide Complex 150 MG CAPSULE PO SCH (09:00)
[2022-03-28] MEDS ORDERED: D5% in Water 1,000 ML IVC PRN (14:36)
[2022-03-28] MEDS ORDERED: *HR* Dextrose 50 % in Water (Syg) 50 ML SYRINGE IVP PRN (14:36)
[2022-03-28] MEDS ORDERED: Acetaminophen 325 MG TABLET PO PRN (14:36)
[2022-03-28] MEDS ORDERED: Naloxone 0.4 MG/ML INJ IVP PRN (14:36)
[2022-03-28] MEDS ORDERED: Dextrose Gel 15 GM/37.5 ML TUBE PO PRN ×2 (14:36)
[2022-03-28] MEDS ORDERED: *HR* Metoprolol 5 MG/5 ML VIAL IVP PRN (14:36)
[2022-03-28] MEDS ORDERED: *HR* HYDROcodone/Acet 10/325 mg TABLET PO ONE (20:00)
[2022-03-28] MEDS: Metoprolol XL (24 HR) Succ 50 MG TAB.ER.24H PO SCH (21:01)
[2022-03-29 01:56] LABS: Hematocrit 28.2 % (35.3-44.9); Hemoglobin 8.6 g/dL (11.5-15.4); Mean Corpuscular HGB Conc 30.5 g/dL (31.6-35.5); Mean Corpuscular Hemoglobin 29.7 pg (28.0-33.3); Mean Corpuscular Volume 97.2 fL (83.0-100.0); Mean Platelet Volume 11.9 fL (9.4-12.4); Platelet Count 161 K/mcL (140-400); Red Cell Distribution Width 17.1 % (11.5-14.5); White Blood Count 9.1 K/mcL (4.3-11.1)
[2022-03-29 02:03] LABS: INR 1.3; Prothrombin Time 14.8 Seconds (9.4-12.1)
[2022-03-29 02:14] LABS: BUN/Creatinine Ratio 34 (6-26); Blood Urea Nitrogen 34 mg/dL (8-23); Calcium 9.4 mg/dL (8.6-10.3); Carbon Dioxide 36 mEq/L (23-29); Chloride 96 mEq/L (98-107); Glucose 115 mg/dL (70-105); Osmolality,Calculated 293 (280-300); Potassium 4.3 mEq/L (3.5-5.1); Sodium 137 mEq/L (136-145); eGFR For African Americans > 60 (> 60); eGFR For Non-African Americans 55 (> 60)
[2022-03-29] MEDS: *HR* Enoxaparin 100 MG/ML SYRINGE SQ SCH ×2 (06:43→18:12)
[2022-03-29] MEDS: Tiotropium 10 INH DOSE IH SCH (07:18)
[2022-03-29] MEDS: Levalbuterol Neb 0.63 MG/3 ML IH SCH ×2 (07:18→15:13)
[2022-03-29] MEDS: Loratadine 10 MG TABLET PO SCH (08:29)
[2022-03-29] MEDS: Spironolactone 12.5 MG TABLET PO SCH (08:29)
[2022-03-29] MEDS: Metoprolol XL (24 HR) Succ 50 MG TAB.ER.24H PO SCH ×2 (08:29→20:52)
[2022-03-29] MEDS: Aspirin 81 MG TAB.CHEW PO SCH (08:29)
[2022-03-29] MEDS: clonazePAM 0.5 MG TABLET PO SCH ×2 (08:29→20:51)
[2022-03-29] MEDS: Insulin LISPRO 300 UNITS/3 ML VIAL SUBQ SCH ×4 (08:30→22:09)
[2022-03-29] MEDS: Venlafaxine XR (24 HR) 75 MG CAP.ER.24H PO SCH (08:30)
[2022-03-29] MEDS: Bumetanide 1 MG TABLET PO SCH (08:30)
[2022-03-29] MEDS: DilTIAZem CD (24hr) 180 MG CAP.ER.24H PO SCH (08:50)
[2022-03-29] MEDS ORDERED: DilTIAZem CD (24hr) 180 MG CAP.ER.24H PO SCH (09:00)
[2022-03-29] MEDS ORDERED: Metoprolol XL (24 HR) Succ 50 MG TAB.ER.24H PO SCH (09:00)
[2022-03-29] MEDS ORDERED: Metoprolol XL (24 HR) Succ 25 MG TAB.ER.24H PO ONE (10:15)
[2022-03-29] MEDS: Iron Polysaccharide Complex 150 MG CAPSULE PO SCH (14:28)
[2022-03-29] MEDS: Ondansetron 4 MG/2 ML VIAL IVP PRN (16:22)
[2022-03-29] MEDS ORDERED: *HR* Warfarin 5 MG TABLET PO ONE (18:00)
[2022-03-29] MEDS ORDERED: Warfarin perPT PO PRN (18:00)
[2022-03-29] MEDS ORDERED: Levalbuterol Neb 0.63 MG/3 ML IH PRN (19:59)
[2022-03-29] MEDS: *HR* HYDROcodone/Acet 10/325 mg TABLET PO PRN (20:51)
[2022-03-30] MEDS: *HR* HYDROcodone/Acet 10/325 mg TABLET PO PRN (03:06)
[2022-03-30 05:13] LABS: Hematocrit 30.2 % (35.3-44.9); Mean Corpuscular HGB Conc 29.8 g/dL (31.6-35.5); Mean Corpuscular Volume 100.7 fL (83.0-100.0); Mean Platelet Volume 12.1 fL (9.4-12.4); Platelet Count 197 K/mcL (140-400); Red Cell Distribution Width 18.6 % (11.5-14.5); White Blood Count 10.2 K/mcL (4.3-11.1)
[2022-03-30 05:16] LABS: INR 1.3; Prothrombin Time 14.4 Seconds (9.4-12.1)
[2022-03-30 05:30] LABS: BUN/Creatinine Ratio 34 (6-26); Blood Urea Nitrogen 36 mg/dL (8-23); Calcium 9.5 mg/dL (8.6-10.3); Carbon Dioxide 35 mEq/L (23-29); Chloride 94 mEq/L (98-107); Glucose 144 mg/dL (70-105); Magnesium 1.6 mg/dL (1.6-2.6); Osmolality,Calculated 295 (280-300); Potassium 4.7 mEq/L (3.5-5.1); Sodium 137 mEq/L (136-145); eGFR For African Americans > 60 (> 60); eGFR For Non-African Americans 51 (> 60)
[2022-03-30] MEDS: *HR* Enoxaparin 100 MG/ML SYRINGE SQ SCH ×2 (06:42→17:59)
[2022-03-30] MEDS: Ondansetron 4 MG/2 ML VIAL IVP PRN (06:48)
[2022-03-30] MEDS: Tiotropium 10 INH DOSE IH SCH (07:47)
[2022-03-30] MEDS: Insulin LISPRO 300 UNITS/3 ML VIAL SUBQ SCH ×4 (08:59→21:05)
[2022-03-30] MEDS: Aspirin 81 MG TAB.CHEW PO SCH (09:00)
[2022-03-30] MEDS: Spironolactone 12.5 MG TABLET PO SCH (09:00)
[2022-03-30] MEDS: clonazePAM 0.5 MG TABLET PO SCH ×2 (09:00→21:05)
[2022-03-30] MEDS: Loratadine 10 MG TABLET PO SCH (09:00)
[2022-03-30] MEDS: Iron Polysaccharide Complex 150 MG CAPSULE PO SCH (09:00)
[2022-03-30] MEDS: Venlafaxine XR (24 HR) 75 MG CAP.ER.24H PO SCH (09:00)
[2022-03-30] MEDS: DilTIAZem CD (24hr) 180 MG CAP.ER.24H PO SCH (09:00)
[2022-03-30] MEDS: Metoprolol XL (24 HR) Succ 50 MG TAB.ER.24H PO SCH ×2 (09:01→21:06)
[2022-03-30] MEDS: Bumetanide 1 MG TABLET PO SCH (09:01)
[2022-03-30] MEDS ORDERED: *HR* Digoxin 0.5 MG/2 ML AMPUL IVP ONE (10:27)
[2022-03-30] MEDS: Sennosides/Docusate Sodium TABLET PO SCH ×2 (12:01→21:06)
[2022-03-30] MEDS ORDERED: *HR* Warfarin 2.5 MG TABLET PO ONE (18:00)
[2022-03-31 02:17] LABS: Hematocrit 29.7 % (35.3-44.9); Hemoglobin 8.8 g/dL (11.5-15.4); Mean Corpuscular HGB Conc 29.6 g/dL (31.6-35.5); Mean Corpuscular Hemoglobin 29.6 pg (28.0-33.3); Mean Platelet Volume 12.3 fL (9.4-12.4); Platelet Count 154 K/mcL (140-400); Red Blood Count 2.97 M/mcL (3.82-4.97); Red Cell Distribution Width 18.6 % (11.5-14.5); White Blood Count 7.4 K/mcL (4.3-11.1)
[2022-03-31 02:23] LABS: INR 1.2; Prothrombin Time 13.9 Seconds (9.4-12.1)
[2022-03-31 02:37] LABS: BUN/Creatinine Ratio 33 (6-26); Blood Urea Nitrogen 32 mg/dL (8-23); Calcium 9.5 mg/dL (8.6-10.3); Carbon Dioxide 40 mEq/L (23-29); Chloride 93 mEq/L (98-107); Glucose 132 mg/dL (70-105); Magnesium 1.7 mg/dL (1.6-2.6); Osmolality,Calculated 295 (280-300); Phosphorous 3.2 mg/dL (2.7-4.5); Potassium 4.8 mEq/L (3.5-5.1); Sodium 138 mEq/L (136-145); eGFR For African Americans > 60 (> 60); eGFR For Non-African Americans 57 (> 60)
[2022-03-31] MEDS: *HR* Enoxaparin 100 MG/ML SYRINGE SQ SCH ×2 (05:15→18:34)
[2022-03-31] MEDS: Aspirin 81 MG TAB.CHEW PO SCH (08:23)
[2022-03-31] MEDS: Insulin LISPRO 300 UNITS/3 ML VIAL SUBQ SCH ×4 (08:23→21:06)
[2022-03-31] MEDS: Iron Polysaccharide Complex 150 MG CAPSULE PO SCH (08:23)
[2022-03-31] MEDS: DilTIAZem CD (24hr) 180 MG CAP.ER.24H PO SCH (08:23)
[2022-03-31] MEDS: Loratadine 10 MG TABLET PO SCH (08:24)
[2022-03-31] MEDS: clonazePAM 0.5 MG TABLET PO SCH ×2 (08:24→19:33)
[2022-03-31] MEDS: Bumetanide 1 MG TABLET PO SCH (08:24)
[2022-03-31] MEDS: Venlafaxine XR (24 HR) 75 MG CAP.ER.24H PO SCH (08:24)
[2022-03-31] MEDS: Metoprolol XL (24 HR) Succ 50 MG TAB.ER.24H PO SCH ×2 (08:24→19:33)
[2022-03-31] MEDS: Sennosides/Docusate Sodium TABLET PO SCH ×2 (08:25→18:34)
[2022-03-31] MEDS: Tiotropium 10 INH DOSE IH SCH (09:28)
[2022-03-31 11:45] LABS: Digoxin 1.2 ng/mL (0.8-2.0)
[2022-03-31] MEDS: *HR* Digoxin 0.5 MG/2 ML AMPUL IVP SCH ×2 (12:18→18:33)
[2022-03-31] MEDS ORDERED: *HR* Warfarin 4 MG TABLET PO ONE (18:00)
[2022-04-01 04:17] LABS: Basophils % 0.3 %; Eosinophils # 0.2 K/mcL (0.0-0.6); Eosinophils % 2.4 %; Hematocrit 28.9 % (35.3-44.9); Hemoglobin 8.5 g/dL (11.5-15.4); Immature Granulocytes % 0.4 % (0-4); Lymphocytes # 0.9 K/mcL (0.6-4.6); Lymphocytes % 13.9 %; Mean Corpuscular HGB Conc 29.4 g/dL (31.6-35.5); Mean Corpuscular Volume 102.1 fL (83.0-100.0); Mean Platelet Volume 12.3 fL (9.4-12.4); Monocytes # 0.9 K/mcL (0.0-1.3); Monocytes % 13.3 %; Neutrophils # 4.7 K/mcL (1.6-8.9); Platelet Count 135 K/mcL (140-400); Red Blood Count 2.83 M/mcL (3.82-4.97); Red Cell Distribution Width 18.8 % (11.5-14.5); Segmented Neutrophils % 69.7 %; White Blood Count 6.7 K/mcL (4.3-11.1)
[2022-04-01 04:25] LABS: INR 1.2; Prothrombin Time 13.8 Seconds (9.4-12.1)
[2022-04-01 04:41] LABS: BUN/Creatinine Ratio 25 (6-26); Blood Urea Nitrogen 24 mg/dL (8-23); Calcium 9.2 mg/dL (8.6-10.3); Carbon Dioxide 44 mEq/L (23-29); Chloride 91 mEq/L (98-107); Glucose 136 mg/dL (70-105); Osmolality,Calculated 290 (280-300); Potassium 4.4 mEq/L (3.5-5.1); Sodium 137 mEq/L (136-145); eGFR For African Americans > 60 (> 60); eGFR For Non-African Americans 58 (> 60)
[2022-04-01] MEDS: *HR* Enoxaparin 100 MG/ML SYRINGE SQ SCH ×2 (06:03→17:56)
[2022-04-01] MEDS: Tiotropium 10 INH DOSE IH SCH (07:46)
[2022-04-01] MEDS: Metoprolol XL (24 HR) Succ 50 MG TAB.ER.24H PO SCH ×2 (07:52→21:55)
[2022-04-01] MEDS: clonazePAM 0.5 MG TABLET PO SCH ×2 (07:52→21:55)
[2022-04-01] MEDS: Venlafaxine XR (24 HR) 75 MG CAP.ER.24H PO SCH (07:52)
[2022-04-01] MEDS: Iron Polysaccharide Complex 150 MG CAPSULE PO SCH (07:52)
[2022-04-01] MEDS: Loratadine 10 MG TABLET PO SCH (07:52)
[2022-04-01] MEDS: Sennosides/Docusate Sodium TABLET PO SCH ×2 (07:53→21:55)
[2022-04-01] MEDS: Insulin LISPRO 300 UNITS/3 ML VIAL SUBQ SCH ×4 (07:53→21:57)
[2022-04-01] MEDS: Aspirin 81 MG TAB.CHEW PO SCH (07:54)
[2022-04-01] MEDS: Bumetanide 1 MG TABLET PO SCH (08:00)
[2022-04-01] MEDS: DilTIAZem CD (24hr) 180 MG CAP.ER.24H PO SCH (08:00)
[2022-04-01] MEDS ORDERED: acetaZOLAMIDE 250 MG TABLET PO ONE (12:54)
[2022-04-01] MEDS ORDERED: DilTIAZem SR (12hr) 60 MG CAP.ER.12H PO ONE (16:00)
[2022-04-01] MEDS ORDERED: Bumetanide 1 MG/4 ML VIAL IVP ONE (16:06)
[2022-04-01] MEDS ORDERED: *HR* Warfarin 4 MG TABLET PO ONE (18:00)
[2022-04-01] MEDS ORDERED: polyethylene glycoL 3350 17 GM POWD.PACK PO PRN (20:10)
[2022-04-01] MEDS: *HR* HYDROcodone/Acet 10/325 mg TABLET PO PRN (22:01)
[2022-04-02 02:04] LABS: INR 1.2; Prothrombin Time 13.9 Seconds (9.4-12.1)
[2022-04-02] MEDS: *HR* Enoxaparin 100 MG/ML SYRINGE SQ SCH (05:13)
[2022-04-02] MEDS: *HR* HYDROcodone/Acet 10/325 mg TABLET PO PRN (05:13)
[2022-04-02] MEDS: Insulin LISPRO 300 UNITS/3 ML VIAL SUBQ SCH ×3 (07:48→16:34)
[2022-04-02] MEDS ORDERED: DilTIAZem CD (24hr) 240 MG CAP.ER.24H PO SCH (09:00)
[2022-04-02] MEDS: Tiotropium 10 INH DOSE IH SCH (10:04)
[2022-04-02 11:14] VITALS: BP 118/77; PULSE 73; TEMP 98.3; O2SAT 96
[2022-04-02] MEDS: Venlafaxine XR (24 HR) 75 MG CAP.ER.24H PO SCH (11:14)
[2022-04-02] MEDS: Iron Polysaccharide Complex 150 MG CAPSULE PO SCH (11:15)
[2022-04-02] MEDS: Loratadine 10 MG TABLET PO SCH (11:15)
[2022-04-02] MEDS: Aspirin 81 MG TAB.CHEW PO SCH (11:15)
[2022-04-02] MEDS: Sennosides/Docusate Sodium TABLET PO SCH (11:20)
[2022-04-02] MEDS: clonazePAM 0.5 MG TABLET PO SCH (11:20)
[2022-04-02] MEDS: Metoprolol XL (24 HR) Succ 50 MG TAB.ER.24H PO SCH (11:23)
[2022-04-02] MEDS ORDERED: *HR* Warfarin 5 MG TABLET PO ONE (18:00)
== END 2022-04-02 16:50 | disposition home health service (06) | DRG 64 ==
LOC: EMEROOARM 14:39 → 2NNU 14:39 → SUATTDRO 19:23 → 2NNU 20:13 → 2ANU 03-28 17:05
PROVIDERS: ADMIT Internal Medicine; ATTEND Internal Medicine

== ENCOUNTER 2022-06-05 16:08 | Inpatient (IN) ==
[2022-06-05 17:11] LABS: Basophils % 0.2 %; Eosinophils % 0.2 %; Hematocrit 28.6 % (35.3-44.9); Hemoglobin 8.5 g/dL (11.5-15.4); Immature Granulocytes % 0.3 % (0-4); Immature Platelets 12.4 % (1.1-6.1); Lymphocytes # 0.7 K/mcL (0.6-4.6); Lymphocytes % 7.9 %; Mean Corpuscular HGB Conc 29.7 g/dL (31.6-35.5); Mean Corpuscular Hemoglobin 31.3 pg (28.0-33.3); Mean Corpuscular Volume 105.1 fL (83.0-100.0); Mean Platelet Volume 11.6 fL (9.4-12.4); Monocytes # 0.7 K/mcL (0.0-1.3); Monocytes % 8.3 %; Neutrophils # 7.1 K/mcL (1.6-8.9); Platelet Count 185 K/mcL (140-400); Red Blood Count 2.72 M/mcL (3.82-4.97); Red Cell Distribution Width 16.2 % (11.5-14.5); Segmented Neutrophils % 83.1 %; White Blood Count 8.6 K/mcL (4.3-11.1)
[2022-06-05 17:28] LABS: Prothrombin Time 65.8 Seconds (9.4-12.1)
[2022-06-05 17:43] LABS: Troponin I < 0.03 ng/mL (< 0.04)
[2022-06-05 18:11] LABS: Alanine Aminotransferase 8 Units/L (7-52); Albumin 3.4 g/dL (3.5-5.7); Albumin/Globulin Ratio 0.9 (1.1-2.2); Alkaline Phosphatase 56 Units/L (34-104); Aspartate Amino Transferase 15 Units/L (13-39); BUN/Creatinine Ratio 39 (6-26); Bilirubin,Direct 0.5 mg/dL (0.0-0.2); Bilirubin,Indirect 1.4 mg/dL (0.0-1.0); Bilirubin,Total 1.9 mg/dL (0.3-1.0); Blood Urea Nitrogen 24 mg/dL (8-23); Calcium 8.8 mg/dL (8.6-10.3); Carbon Dioxide > 45 mEq/L (23-29); Chloride 78 mEq/L (98-107); Globulin 3.7 g/dL (2.4-3.5); Glucose 181 mg/dL (70-105); Osmolality,Calculated 299 (280-300); Sodium 140 mEq/L (136-145); Total Protein 7.1 g/dL (6.4-8.9)
[2022-06-05 18:45] LABS: Influenza A PCR Negative (Negative); Influenza B PCR Negative (Negative); Resp. Syncytial Virus PCR Negative (Negative)
[2022-06-05 19:10] LABS: SARS-CoV-2 by PCR (In House) Negative (Negative)
[2022-06-05] MEDS ORDERED: Bumetanide 1 MG/4 ML VIAL IVP ONE (19:19)
[2022-06-05] MEDS ORDERED: Naloxone 0.4 MG/ML INJ IVP PRN (21:29)
[2022-06-06] MEDS ORDERED: Metoprolol XL (24 HR) Succ 25 MG TAB.ER.24H PO ONE (00:07)
[2022-06-06] MEDS ORDERED: Bumetanide 1 MG/4 ML VIAL IVP ONE (00:25)
[2022-06-06] MEDS ORDERED: D5% in Water 1,000 ML IVC PRN (00:38)
[2022-06-06] MEDS ORDERED: *HR* Dextrose 50 % in Water (Syg) 50 ML SYRINGE IVP PRN (00:38)
[2022-06-06] MEDS ORDERED: Dextrose Gel 15 GM/37.5 ML TUBE PO PRN ×2 (00:38)
[2022-06-06] MEDS: DilTIAZem 50 MG/50 ML IV.SOLN IVC SCH ×4 (00:48→20:00)
[2022-06-06 03:06] LABS: Basophils % 0.3 %; Eosinophils % 0.4 %; Hematocrit 26.7 % (35.3-44.9); Hemoglobin 8.1 g/dL (11.5-15.4); Immature Granulocytes % 0.3 % (0-4); Lymphocytes % 10.6 %; Mean Corpuscular HGB Conc 30.3 g/dL (31.6-35.5); Mean Corpuscular Hemoglobin 31.8 pg (28.0-33.3); Mean Corpuscular Volume 104.7 fL (83.0-100.0); Mean Platelet Volume 11.7 fL (9.4-12.4); Monocytes # 0.9 K/mcL (0.0-1.3); Neutrophils # 7.2 K/mcL (1.6-8.9); Platelet Count 174 K/mcL (140-400); Red Blood Count 2.55 M/mcL (3.82-4.97); Red Cell Distribution Width 16.6 % (11.5-14.5); Segmented Neutrophils % 78.4 %; White Blood Count 9.1 K/mcL (4.3-11.1)
[2022-06-06 03:25] LABS: INR 5.1; Prothrombin Time 56.5 Seconds (9.4-12.1)
[2022-06-06 03:33] LABS: Alanine Aminotransferase 6 Units/L (7-52); Albumin 3.3 g/dL (3.5-5.7); Albumin/Globulin Ratio 0.9 (1.1-2.2); Alkaline Phosphatase 56 Units/L (34-104); Aspartate Amino Transferase 19 Units/L (13-39); BUN/Creatinine Ratio 41 (6-26); Bilirubin,Total 1.7 mg/dL (0.3-1.0); Blood Urea Nitrogen 24 mg/dL (8-23); Calcium 8.5 mg/dL (8.6-10.3); Carbon Dioxide > 45 mEq/L (23-29); Chloride 77 mEq/L (98-107); Globulin 3.5 g/dL (2.4-3.5); Glucose 158 mg/dL (70-105); Magnesium 1.2 mg/dL (1.6-2.6); Osmolality,Calculated 295 (280-300); Phosphorous 2.6 mg/dL (2.7-4.5); Potassium 3.4 mEq/L (3.5-5.1); Sodium 139 mEq/L (136-145); Total Protein 6.8 g/dL (6.4-8.9)
[2022-06-06] MEDS: Ipratropium/Albuterol Neb 3 ML IH SCH ×5 (04:34→22:43)
[2022-06-06] MEDS: Calcium Gluconate 1gm/50mL 1 GM/50 ML BAG IVPB SCH ×2 (05:04→06:33)
[2022-06-06 05:22] LABS: Estimated Average Glucose 82 mg/dl; Hemoglobin A1C 4.5 %
[2022-06-06 05:31] LABS: Lactate Dehydrogenase 185 Units/L (140-271); Total Protein 6.9 g/dL (6.4-8.9)
[2022-06-06 05:32] LABS: % Iron Saturation 19 % (15-50); Iron 65 mcg/dL (50-170); Transferrin 241 mg/dL (203-362)
[2022-06-06 05:50] LABS: Ferritin 79 ng/mL (10-120)
[2022-06-06 05:56] LABS: Folate 7.4 ng/mL (3.0-16.0)
[2022-06-06] MEDS ORDERED: Albumin 25% 25gram/100mL 25 GM/100 ML IV.SOLN IVPB SCH (08:00)
[2022-06-06] MEDS: Aspirin Enteric Coated 81 MG Tablet PO SCH (09:00)
[2022-06-06] MEDS ORDERED: Bumetanide 1 MG/4 ML VIAL IVP SCH (09:00)
[2022-06-06] MEDS ORDERED: DilTIAZem CD (24hr) 180 MG CAP.ER.24H PO SCH (09:00)
[2022-06-06] MEDS ORDERED: Furosemide 20 MG/2 ML VIAL IVP SCH (09:00)
[2022-06-06] MEDS ORDERED: Metoprolol XL (24 HR) Succ 50 MG TAB.ER.24H PO SCH (09:00)
[2022-06-06] MEDS: Budesonide/Formoterol 160/4.5 1 PUFF INH IH SCH ×2 (10:14→22:43)
[2022-06-06] MEDS: Metoprolol XL (24 HR) Succ 50 MG TAB.ER.24H PO SCH ×2 (10:41→19:50)
[2022-06-06] MEDS: DilTIAZem CD (24hr) 300 MG CAP.ER.24H PO SCH (14:04)
[2022-06-06] MEDS: Insulin LISPRO 300 UNITS/3 ML VIAL SUBQ SCH ×2 (16:58→19:06)
[2022-06-06] MEDS: Insulin DETEMIR 100 UNIT/ML X5UNITS SUBQ SCH (19:43)
[2022-06-07] MEDS: DilTIAZem 50 MG/50 ML IV.SOLN IVC SCH ×2 (00:35→05:58)
[2022-06-07 04:09] LABS: INR 5.3
[2022-06-07 04:10] LABS: Prothrombin Time 57.8 Seconds (9.4-12.1)
[2022-06-07] MEDS: Ipratropium/Albuterol Neb 3 ML IH SCH ×4 (04:10→22:34)
[2022-06-07 04:48] LABS: BUN/Creatinine Ratio 39 (6-26); Blood Urea Nitrogen 27 mg/dL (8-23); Calcium 9.1 mg/dL (8.6-10.3); Carbon Dioxide > 45 mEq/L (23-29); Chloride 79 mEq/L (98-107); Glucose 161 mg/dL (70-105); Osmolality,Calculated 303 (280-300); Potassium 4.6 mEq/L (3.5-5.1); Sodium 142 mEq/L (136-145)
[2022-06-07 05:22] LABS: Basophils % 0.2 %; Eosinophils # 0.1 K/mcL (0.0-0.6); Eosinophils % 0.7 %; Hematocrit 23.8 % (35.3-44.9); Immature Granulocytes % 0.4 % (0-4); Lymphocytes # 0.7 K/mcL (0.6-4.6); Lymphocytes % 6.8 %; Mean Corpuscular HGB Conc 29.4 g/dL (31.6-35.5); Mean Corpuscular Hemoglobin 32.1 pg (28.0-33.3); Mean Corpuscular Volume 109.2 fL (83.0-100.0); Monocytes # 0.8 K/mcL (0.0-1.3); Monocytes % 7.3 %; Neutrophils # 9.1 K/mcL (1.6-8.9); Nucleated Red Blood Cells 0.2 /100 WBC (0); Platelet Count 156 K/mcL (140-400); Red Blood Count 2.18 M/mcL (3.82-4.97); Segmented Neutrophils % 84.6 %; White Blood Count 10.8 K/mcL (4.3-11.1)
[2022-06-07] MEDS: Aspirin Enteric Coated 81 MG Tablet PO SCH (08:14)
[2022-06-07] MEDS: Metoprolol XL (24 HR) Succ 50 MG TAB.ER.24H PO SCH ×2 (08:14→20:49)
[2022-06-07] MEDS: DilTIAZem CD (24hr) 300 MG CAP.ER.24H PO SCH (08:14)
[2022-06-07] MEDS: Insulin LISPRO 300 UNITS/3 ML VIAL SUBQ SCH ×3 (08:15→16:57)
[2022-06-07 09:50] LABS: Hematocrit 23.4 % (35.3-44.9)
[2022-06-07] MEDS: acetaZOLAMIDE 250 MG TABLET PO SCH (09:52)
[2022-06-07] MEDS: Budesonide/Formoterol 160/4.5 1 PUFF INH IH SCH ×2 (10:38→22:34)
[2022-06-07] MEDS ORDERED: *HR* Phytonadione 5 MG TABLET PO ONE (13:41)
[2022-06-07] MEDS: Pantoprazole 40 MG VIAL IVP SCH (17:03)
[2022-06-07] MEDS: Insulin DETEMIR 100 UNIT/ML X5UNITS SUBQ SCH (20:48)
[2022-06-08 03:53] LABS: BUN/Creatinine Ratio 46 (6-26); Blood Urea Nitrogen 31 mg/dL (8-23); Calcium 8.5 mg/dL (8.6-10.3); Carbon Dioxide > 55 mEq/L (23-29); Chloride 81 mEq/L (98-107); Glucose 155 mg/dL (70-105); Osmolality,Calculated 296 (280-300); Potassium 3.1 mEq/L (3.5-5.1); Sodium 138 mEq/L (136-145)
[2022-06-08 03:57] LABS: Basophils % 0.2 %; Eosinophils # 0.1 K/mcL (0.0-0.6); Eosinophils % 0.7 %; Hematocrit 20.5 % (35.3-44.9); Hemoglobin 6.2 g/dL (11.5-15.4); Immature Granulocytes % 0.3 % (0-4); Lymphocytes # 0.7 K/mcL (0.6-4.6); Lymphocytes % 8.3 %; Mean Corpuscular HGB Conc 30.2 g/dL (31.6-35.5); Mean Corpuscular Volume 105.7 fL (83.0-100.0); Mean Platelet Volume 11.9 fL (9.4-12.4); Monocytes # 0.6 K/mcL (0.0-1.3); Monocytes % 7.2 %; Neutrophils # 7.3 K/mcL (1.6-8.9); Nucleated Red Blood Cells 0.6 /100 WBC (0); Platelet Count 142 K/mcL (140-400); Red Blood Count 1.94 M/mcL (3.82-4.97); Red Cell Distribution Width 17.2 % (11.5-14.5); Segmented Neutrophils % 83.3 %; White Blood Count 8.8 K/mcL (4.3-11.1)
[2022-06-08] MEDS: Ipratropium/Albuterol Neb 3 ML IH SCH (04:00)
[2022-06-08 04:04] LABS: INR 2.3
[2022-06-08] MEDS: Pantoprazole 40 MG VIAL IVP SCH ×2 (05:27→17:23)
[2022-06-08 05:49] LABS: ABG Base Excess 24 mEq/L (-2 to 3); ABG HCO3 51 mEq/L (21-27); ABG Oxygen Saturation 96 % (95-98); ABG PCO2 85 mmHg (35-45); ABG PH 7.39 pH Units (7.32-7.45); ABG PO2 89 mmHg (85-104); ABG TCO2 > 50 mEq/L (20-26)
[2022-06-08] MEDS ORDERED: 0.9 % Sodium Chloride 250 ML IVC SCH (07:30)
[2022-06-08] MEDS: acetaZOLAMIDE 250 MG TABLET PO SCH (08:06)
[2022-06-08] MEDS: Metoprolol XL (24 HR) Succ 50 MG TAB.ER.24H PO SCH ×2 (08:06→21:24)
[2022-06-08] MEDS: DilTIAZem CD (24hr) 300 MG CAP.ER.24H PO SCH (08:06)
[2022-06-08] MEDS: Aspirin Enteric Coated 81 MG Tablet PO SCH (08:06)
[2022-06-08] MEDS: Insulin LISPRO 300 UNITS/3 ML VIAL SUBQ SCH ×3 (08:07→17:23)
[2022-06-08] MEDS ORDERED: Ipratropium/Albuterol Neb 3 ML IH PRN (09:14)
[2022-06-08] MEDS: Budesonide/Formoterol 160/4.5 1 PUFF INH IH SCH ×2 (11:00→22:34)
[2022-06-08] MEDS: Acetaminophen 325 MG TABLET PO PRN (12:32)
[2022-06-08] MEDS: Insulin DETEMIR 100 UNIT/ML X5UNITS SUBQ SCH (19:58)
[2022-06-08] MEDS ORDERED: acetaZOLAMIDE 250 MG TABLET PO ONE (21:00)
[2022-06-08 21:36] LABS: Mean Corpuscular HGB Conc 30.4 g/dL (31.6-35.5); Mean Corpuscular Hemoglobin 32.1 pg (28.0-33.3); Mean Corpuscular Volume 105.5 fL (83.0-100.0); Mean Platelet Volume 11.6 fL (9.4-12.4); Platelet Count 144 K/mcL (140-400); Red Blood Count 2.18 M/mcL (3.82-4.97); Red Cell Distribution Width 18.4 % (11.5-14.5); White Blood Count 9.2 K/mcL (4.3-11.1)
[2022-06-08] MEDS: DilTIAZem 50 MG/50 ML IV.SOLN IVC SCH (23:28)
[2022-06-09 04:55] LABS: Basophils % 0.3 %; Eosinophils # 0.1 K/mcL (0.0-0.6); Eosinophils % 1.2 %; Hematocrit 22.4 % (35.3-44.9); Hemoglobin 6.9 g/dL (11.5-15.4); Immature Granulocytes % 0.3 % (0-4); Lymphocytes # 0.9 K/mcL (0.6-4.6); Lymphocytes % 9.3 %; Mean Corpuscular HGB Conc 30.8 g/dL (31.6-35.5); Mean Corpuscular Hemoglobin 31.9 pg (28.0-33.3); Mean Corpuscular Volume 103.7 fL (83.0-100.0); Mean Platelet Volume 11.8 fL (9.4-12.4); Monocytes # 0.8 K/mcL (0.0-1.3); Neutrophils # 8.1 K/mcL (1.6-8.9); Nucleated Red Blood Cells 0.2 /100 WBC (0); Platelet Count 144 K/mcL (140-400); Red Blood Count 2.16 M/mcL (3.82-4.97); Red Cell Distribution Width 17.8 % (11.5-14.5); Segmented Neutrophils % 80.9 %
[2022-06-09] MEDS: DilTIAZem 50 MG/50 ML IV.SOLN IVC SCH (05:02)
[2022-06-09 05:03] LABS: INR 1.3; Prothrombin Time 14.7 Seconds (9.4-12.1)
[2022-06-09] MEDS: Pantoprazole 40 MG VIAL IVP SCH ×2 (05:58→16:30)
[2022-06-09 06:56] LABS: BUN/Creatinine Ratio 41 (6-26); Blood Urea Nitrogen 25 mg/dL (8-23); Calcium 8.4 mg/dL (8.6-10.3); Carbon Dioxide > 45 mEq/L (23-29); Chloride 86 mEq/L (98-107); Glucose 130 mg/dL (70-105); Osmolality,Calculated 290 (280-300); Sodium 137 mEq/L (136-145)
[2022-06-09] MEDS: Insulin LISPRO 300 UNITS/3 ML VIAL SUBQ SCH ×3 (07:13→16:27)
[2022-06-09] MEDS: Aspirin Enteric Coated 81 MG Tablet PO SCH (07:45)
[2022-06-09] MEDS: DilTIAZem CD (24hr) 300 MG CAP.ER.24H PO SCH (07:45)
[2022-06-09] MEDS: Metoprolol XL (24 HR) Succ 50 MG TAB.ER.24H PO SCH ×2 (07:45→21:06)
[2022-06-09] MEDS ORDERED: acetaZOLAMIDE 250 MG TABLET PO ONE (08:12)
[2022-06-09] MEDS: DilTIAZem CD (24hr) 180 MG CAP.ER.24H PO SCH (08:43)
[2022-06-09] MEDS: Budesonide/Formoterol 160/4.5 1 PUFF INH IH SCH ×2 (10:56→20:19)
[2022-06-09 11:18] LABS: Hematocrit 22.9 % (35.3-44.9); Hemoglobin 6.9 g/dL (11.5-15.4)
[2022-06-09] MEDS ORDERED: 0.9 % Sodium Chloride 250 ML IVC SCH (12:15)
[2022-06-09] MEDS ORDERED: 0.9 % Sodium Chloride 250 ML ONE (12:44)
[2022-06-09 18:12] LABS: Hematocrit 26.7 % (35.3-44.9); Hemoglobin 8.4 g/dL (11.5-15.4)
[2022-06-09] MEDS: Acetaminophen 325 MG TABLET PO PRN (21:06)
[2022-06-09] MEDS: Melatonin 3 MG TABLET PO PRN (21:06)
[2022-06-09] MEDS: Insulin DETEMIR 100 UNIT/ML X5UNITS SUBQ SCH (21:08)
[2022-06-10] MEDS: Pantoprazole 40 MG VIAL IVP SCH ×2 (04:52→17:14)
[2022-06-10 05:09] LABS: Basophils % 0.2 %; Eosinophils # 0.1 K/mcL (0.0-0.6); Eosinophils % 1.1 %; Hematocrit 25.3 % (35.3-44.9); Hemoglobin 7.9 g/dL (11.5-15.4); Immature Granulocytes % 0.6 % (0-4); Lymphocytes # 0.9 K/mcL (0.6-4.6); Mean Corpuscular HGB Conc 31.2 g/dL (31.6-35.5); Mean Corpuscular Hemoglobin 32.4 pg (28.0-33.3); Mean Corpuscular Volume 103.7 fL (83.0-100.0); Mean Platelet Volume 11.5 fL (9.4-12.4); Monocytes % 9.1 %; Neutrophils # 9.2 K/mcL (1.6-8.9); Platelet Count 159 K/mcL (140-400); Red Blood Count 2.44 M/mcL (3.82-4.97); Red Cell Distribution Width 18.3 % (11.5-14.5); White Blood Count 11.4 K/mcL (4.3-11.1)
[2022-06-10 05:50] LABS: BUN/Creatinine Ratio 34 (6-26); Blood Urea Nitrogen 24 mg/dL (8-23); Calcium 8.4 mg/dL (8.6-10.3); Carbon Dioxide > 45 mEq/L (23-29); Chloride 87 mEq/L (98-107); Glucose 133 mg/dL (70-105); Osmolality,Calculated 288 (280-300); Potassium 2.9 mEq/L (3.5-5.1); Sodium 136 mEq/L (136-145)
[2022-06-10] MEDS: Insulin LISPRO 300 UNITS/3 ML VIAL SUBQ SCH ×4 (06:57→17:15)
[2022-06-10] MEDS: Budesonide/Formoterol 160/4.5 1 PUFF INH IH SCH ×2 (07:33→20:15)
[2022-06-10] MEDS: Aspirin Enteric Coated 81 MG Tablet PO SCH (08:35)
[2022-06-10] MEDS: DilTIAZem CD (24hr) 180 MG CAP.ER.24H PO SCH (08:35)
[2022-06-10] MEDS: Metoprolol XL (24 HR) Succ 50 MG TAB.ER.24H PO SCH ×2 (08:35→19:55)
[2022-06-10] MEDS: Melatonin 3 MG TABLET PO PRN (19:55)
[2022-06-10] MEDS: Ondansetron 4 MG/2 ML VIAL IVP PRN (19:55)
[2022-06-10] MEDS: Insulin DETEMIR 100 UNIT/ML X5UNITS SUBQ SCH (21:51)
[2022-06-11] MEDS: Acetaminophen 325 MG TABLET PO PRN ×2 (02:38→12:25)
[2022-06-11] MEDS: Pantoprazole 40 MG VIAL IVP SCH (05:05)
[2022-06-11 05:54] LABS: Basophils % 0.3 %; Eosinophils # 0.1 K/mcL (0.0-0.6); Hematocrit 24.3 % (35.3-44.9); Hemoglobin 7.4 g/dL (11.5-15.4); Immature Granulocytes % 0.4 % (0-4); Lymphocytes # 1.1 K/mcL (0.6-4.6); Lymphocytes % 9.7 %; Mean Corpuscular HGB Conc 30.5 g/dL (31.6-35.5); Mean Corpuscular Hemoglobin 31.9 pg (28.0-33.3); Mean Corpuscular Volume 104.7 fL (83.0-100.0); Mean Platelet Volume 11.8 fL (9.4-12.4); Monocytes # 1.2 K/mcL (0.0-1.3); Monocytes % 10.7 %; Platelet Count 176 K/mcL (140-400); Red Blood Count 2.32 M/mcL (3.82-4.97); Red Cell Distribution Width 18.1 % (11.5-14.5); Segmented Neutrophils % 77.9 %; White Blood Count 11.6 K/mcL (4.3-11.1)
[2022-06-11] MEDS ORDERED: *HR* Metoprolol 5 MG/5 ML VIAL IVP ONE (05:55)
[2022-06-11 06:21] LABS: BUN/Creatinine Ratio 29 (6-26); Blood Urea Nitrogen 20 mg/dL (8-23); Calcium 8.5 mg/dL (8.6-10.3); Carbon Dioxide 45 mEq/L (23-29); Chloride 89 mEq/L (98-107); Glucose 118 mg/dL (70-105); Osmolality,Calculated 286 (280-300); Potassium 3.6 mEq/L (3.5-5.1); Sodium 136 mEq/L (136-145)
[2022-06-11] MEDS: Budesonide/Formoterol 160/4.5 1 PUFF INH IH SCH ×2 (08:06→20:21)
[2022-06-11] MEDS: Insulin LISPRO 300 UNITS/3 ML VIAL SUBQ SCH ×3 (08:30→17:11)
[2022-06-11] MEDS: DilTIAZem CD (24hr) 180 MG CAP.ER.24H PO SCH (08:45)
[2022-06-11] MEDS: Aspirin Enteric Coated 81 MG Tablet PO SCH (08:45)
[2022-06-11] MEDS: Metoprolol XL (24 HR) Succ 50 MG TAB.ER.24H PO SCH ×2 (08:45→20:11)
[2022-06-11] MEDS ORDERED: *HR* HYDROcodone/Acet 5/325 mg TABLET PO ONE (14:19)
[2022-06-11 15:49] LABS: INR 1.3; Prothrombin Time 14.8 Seconds (9.4-12.1)
[2022-06-11 16:58] LABS: Glucose,Pleural Fluid 145 mg/dL (No Ref Range); LDH,Pleural Fluid 47 Units/L (No Ref Range); Total Protein,Pleural Fluid < 2.0 g/dL
[2022-06-11] MEDS ORDERED: *HR* Warfarin 5 MG TABLET PO ONE (18:00)
[2022-06-11] MEDS ORDERED: Warfarin perPT PO PRN (18:00)
[2022-06-11 18:10] LABS: RBC,Pleural Fluid < 2000 RBC/mcL
[2022-06-11 19:12] LABS: Appearance of Pleural Fl Clear (Clear)
[2022-06-11 19:24] LABS: Basophils,Pleural Fluid 0 %; Eosinophils,Pleural Fluid 0 %; Lymphocytes,Pleural Fluid 64 %; Monocytes,Pleural Fluid 3 %
[2022-06-11] MEDS: Insulin DETEMIR 100 UNIT/ML X5UNITS SUBQ SCH (20:15)
[2022-06-12 06:04] LABS: Basophils % 0.3 %; Eosinophils # 0.1 K/mcL (0.0-0.6); Eosinophils % 0.8 %; Hematocrit 26.3 % (35.3-44.9); Immature Granulocytes % 0.4 % (0-4); Lymphocytes # 1.1 K/mcL (0.6-4.6); Mean Corpuscular HGB Conc 30.4 g/dL (31.6-35.5); Mean Corpuscular Hemoglobin 32.4 pg (28.0-33.3); Mean Corpuscular Volume 106.5 fL (83.0-100.0); Mean Platelet Volume 11.6 fL (9.4-12.4); Monocytes % 9.2 %; Neutrophils # 8.8 K/mcL (1.6-8.9); Platelet Count 195 K/mcL (140-400); Red Blood Count 2.47 M/mcL (3.82-4.97); Red Cell Distribution Width 17.5 % (11.5-14.5); Segmented Neutrophils % 79.3 %; White Blood Count 11.1 K/mcL (4.3-11.1)
[2022-06-12 06:09] LABS: INR 1.4; Prothrombin Time 15.6 Seconds (9.4-12.1)
[2022-06-12 06:41] LABS: BUN/Creatinine Ratio 30 (6-26); Blood Urea Nitrogen 18 mg/dL (8-23); Calcium 8.4 mg/dL (8.6-10.3); Carbon Dioxide 42 mEq/L (23-29); Chloride 90 mEq/L (98-107); Glucose 140 mg/dL (70-105); Magnesium 1.6 mg/dL (1.6-2.6); Osmolality,Calculated 280 (280-300); Sodium 133 mEq/L (136-145)
[2022-06-12] MEDS: Insulin LISPRO 300 UNITS/3 ML VIAL SUBQ SCH ×3 (07:23→17:19)
[2022-06-12] MEDS: Aspirin Enteric Coated 81 MG Tablet PO SCH (09:09)
[2022-06-12] MEDS: Metoprolol XL (24 HR) Succ 50 MG TAB.ER.24H PO SCH ×2 (09:09→22:48)
[2022-06-12] MEDS: Bumetanide 1 MG TABLET PO SCH (09:09)
[2022-06-12] MEDS: DilTIAZem CD (24hr) 180 MG CAP.ER.24H PO SCH (09:09)
[2022-06-12] MEDS: Venlafaxine XR (24 HR) 75 MG CAP.ER.24H PO SCH (09:09)
[2022-06-12] MEDS: Budesonide/Formoterol 160/4.5 1 PUFF INH IH SCH ×2 (10:39→20:32)
[2022-06-12] MEDS ORDERED: Bumetanide 1 MG/4 ML VIAL IVP ONE (11:08)
[2022-06-12] MEDS: *HR* Digoxin 0.5 MG/2 ML AMPUL IVP SCH ×2 (11:17→17:20)
[2022-06-12] MEDS ORDERED: SODIUM CHLORIDE/NAHCO3/KCL/PEG 4,000 ML SOLN.RECON PO ONE (17:00)
[2022-06-12] MEDS ORDERED: *HR* Warfarin 2.5 MG TABLET PO ONE (18:00)
[2022-06-12] MEDS: Insulin DETEMIR 100 UNIT/ML X5UNITS SUBQ SCH (22:48)
[2022-06-13] MEDS: *HR* Digoxin 0.5 MG/2 ML AMPUL IVP SCH (00:08)
[2022-06-13 05:11] LABS: Basophils % 0.1 %; Eosinophils # 0.1 K/mcL (0.0-0.6); Eosinophils % 0.9 %; Hematocrit 26.5 % (35.3-44.9); Hemoglobin 8.1 g/dL (11.5-15.4); Immature Granulocytes % 0.5 % (0-4); Lymphocytes % 9.4 %; Mean Corpuscular HGB Conc 30.6 g/dL (31.6-35.5); Mean Corpuscular Hemoglobin 31.6 pg (28.0-33.3); Mean Corpuscular Volume 103.5 fL (83.0-100.0); Mean Platelet Volume 11.5 fL (9.4-12.4); Monocytes % 9.3 %; Neutrophils # 8.8 K/mcL (1.6-8.9); Platelet Count 230 K/mcL (140-400); Red Blood Count 2.56 M/mcL (3.82-4.97); Red Cell Distribution Width 16.8 % (11.5-14.5); Segmented Neutrophils % 79.8 %; White Blood Count 11.1 K/mcL (4.3-11.1)
[2022-06-13 05:18] LABS: INR 1.6; Prothrombin Time 17.4 Seconds (9.4-12.1)
[2022-06-13 05:37] LABS: BUN/Creatinine Ratio 26 (6-26); Blood Urea Nitrogen 18 mg/dL (8-23); Calcium 7.9 mg/dL (8.6-10.3); Carbon Dioxide 41 mEq/L (23-29); Chloride 87 mEq/L (98-107); Glucose 116 mg/dL (70-105); Osmolality,Calculated 277 (280-300); Sodium 132 mEq/L (136-145)
[2022-06-13] MEDS: Budesonide/Formoterol 160/4.5 1 PUFF INH IH SCH ×2 (07:11→22:32)
[2022-06-13] MEDS: Insulin LISPRO 300 UNITS/3 ML VIAL SUBQ SCH ×3 (07:48→17:01)
[2022-06-13] MEDS: DilTIAZem CD (24hr) 180 MG CAP.ER.24H PO SCH (09:29)
[2022-06-13] MEDS: Metoprolol XL (24 HR) Succ 50 MG TAB.ER.24H PO SCH ×2 (09:29→19:59)
[2022-06-13] MEDS: Bumetanide 1 MG TABLET PO SCH (09:29)
[2022-06-13] MEDS: Aspirin Enteric Coated 81 MG Tablet PO SCH (09:29)
[2022-06-13] MEDS: lisinopriL 5 MG TABLET PO SCH (09:30)
[2022-06-13] MEDS: Venlafaxine XR (24 HR) 75 MG CAP.ER.24H PO SCH (09:32)
[2022-06-13] MEDS ORDERED: Simethicone 40 MG/0.6 ML MLS IR ONE (13:29)
[2022-06-13] MEDS ORDERED: Lidocaine -MPF 2% 5 ML VIAL ONE (13:55)
[2022-06-13] MEDS ORDERED: Iopamidol - 370 500 ML MLS IVP ONE (17:38)
[2022-06-13 18:26] LABS: Adenovirus F 40/41 PCR Not detected (Not detect); Astrovirus PCR Not detected (Not detect); Campylobacter by PCR Not detected (Not detect); Cryptosporidium by PCR Not detected (Not detect); Cyclospora cayetanensis PCR Not detected (Not detect); Entamoeba histolytica PCR Not detected (Not detect); Enteroaggregative E.coli(EAEC) Not detected (Not detect); Enteropathogenic E.coli(EPEC) Not detected (Not detect); Enterotoxigenic E.coli (ETEC) Not detected (Not detect); Giardia lamblia PCR Not detected (Not detect); Norovirus GI/GII PCR Not detected (Not detect); Plesiomonas shigelloides PCR Not detected (Not detect); Rotavirus A PCR Not detected (Not detect); Salmonella PCR Not detected (Not detect); Sapovirus PCR Not detected (Not detect); Shig/EnteroinvasiveE coli EIEC Not detected (Not detect); Shigalike tox-prod E coli STEC Not detected (Not detect); Vibrio PCR Not detected (Not detect); Vibrio cholerae PCR Not detected (Not detect); Yersinia enterocolitica PCR Not detected (Not detect)
[2022-06-13 18:30] LABS: C.difficile Toxin A/B Gene PCR DETECTED (Not detect)
[2022-06-13] MEDS: Insulin DETEMIR 100 UNIT/ML X5UNITS SUBQ SCH (18:37)
[2022-06-13] MEDS: Ondansetron 4 MG/2 ML VIAL IVP PRN (19:59)
[2022-06-13 21:40] LABS: Fluid Source for Cholesterol PLEURAL FLUID
[2022-06-14] MEDS: MetroNIDAZOLE 500 MG/100 ML 500 MG/100 ML BAG IVPB SCH ×3 (00:42→15:17)
[2022-06-14 01:47] LABS: Basophils % 0.1 %; Eosinophils # 0.1 K/mcL (0.0-0.6); Hematocrit 27.5 % (35.3-44.9); Hemoglobin 8.3 g/dL (11.5-15.4); Immature Granulocytes % 0.6 % (0-4); Lymphocytes # 0.6 K/mcL (0.6-4.6); Lymphocytes % 5.5 %; Mean Corpuscular HGB Conc 30.2 g/dL (31.6-35.5); Mean Corpuscular Volume 102.6 fL (83.0-100.0); Mean Platelet Volume 11.4 fL (9.4-12.4); Monocytes # 1.1 K/mcL (0.0-1.3); Monocytes % 9.7 %; Neutrophils # 9.7 K/mcL (1.6-8.9); Platelet Count 228 K/mcL (140-400); Red Blood Count 2.68 M/mcL (3.82-4.97); Red Cell Distribution Width 16.8 % (11.5-14.5); Segmented Neutrophils % 83.1 %; White Blood Count 11.7 K/mcL (4.3-11.1)
[2022-06-14 01:51] LABS: INR 1.7; Prothrombin Time 18.8 Seconds (9.4-12.1)
[2022-06-14 02:26] LABS: BUN/Creatinine Ratio 21 (6-26); Blood Urea Nitrogen 13 mg/dL (8-23); Calcium 7.6 mg/dL (8.6-10.3); Carbon Dioxide 43 mEq/L (23-29); Chloride 87 mEq/L (98-107); Glucose 100 mg/dL (70-105); Osmolality,Calculated 274 (280-300); Potassium 3.5 mEq/L (3.5-5.1); Sodium 132 mEq/L (136-145)
[2022-06-14] MEDS: Insulin LISPRO 300 UNITS/3 ML VIAL SUBQ SCH ×3 (07:40→17:26)
[2022-06-14] MEDS: Budesonide/Formoterol 160/4.5 1 PUFF INH IH SCH ×2 (08:03→20:47)
[2022-06-14] MEDS: DilTIAZem CD (24hr) 180 MG CAP.ER.24H PO SCH (08:18)
[2022-06-14] MEDS: Bumetanide 1 MG TABLET PO SCH (08:27)
[2022-06-14] MEDS: Venlafaxine XR (24 HR) 75 MG CAP.ER.24H PO SCH (08:27)
[2022-06-14] MEDS: lisinopriL 5 MG TABLET PO SCH (08:40)
[2022-06-14] MEDS: Metoprolol XL (24 HR) Succ 50 MG TAB.ER.24H PO SCH ×2 (08:40→20:50)
[2022-06-14] MEDS ORDERED: levoFLOXacin 750 MG TABLET PO SCH (09:45)
[2022-06-14] MEDS ORDERED: Vancomycin Oral Soln 125 MG/2.5 ML UDC PO SCH (10:00)
[2022-06-14] MEDS: Vancomycin Oral Soln 125 MG/2.5 ML UDC PO SCH ×4 (12:28→20:50)
[2022-06-14 12:56] LABS: Cholesterol,Body Fluid 18 mg/dL
[2022-06-14] MEDS ORDERED: Iopamidol - 370 500 ML MLS IVP ONE (13:14)
[2022-06-14 17:46] LABS: Influenza A PCR Negative (Negative); Influenza B PCR Negative (Negative); Resp. Syncytial Virus PCR Negative (Negative)
[2022-06-14 17:47] LABS: SARS-CoV-2 by PCR (In House) Negative (Negative)
[2022-06-15] MEDS: Insulin LISPRO 300 UNITS/3 ML VIAL SUBQ SCH ×4 (00:55→18:41)
[2022-06-15] MEDS: Vancomycin Oral Soln 125 MG/2.5 ML UDC PO SCH ×4 (09:33→19:56)
[2022-06-15] MEDS: Venlafaxine XR (24 HR) 75 MG CAP.ER.24H PO SCH (09:42)
[2022-06-15] MEDS: Metoprolol XL (24 HR) Succ 50 MG TAB.ER.24H PO SCH ×2 (09:44→19:55)
[2022-06-15] MEDS: DilTIAZem CD (24hr) 180 MG CAP.ER.24H PO SCH (09:57)
[2022-06-15] MEDS: Budesonide/Formoterol 160/4.5 1 PUFF INH IH SCH ×2 (10:26→19:57)
[2022-06-15] MEDS ORDERED: Ondansetron ODT 4 MG TAB.RAPDIS SL PRN (13:57)
[2022-06-15] MEDS ORDERED: GADOBUTROL 30 MMOL/30 ML VIAL IVP ONE (15:22)
[2022-06-15 18:18] LABS: Basophils % 0.1 %; Eosinophils # 0.1 K/mcL (0.0-0.6); Eosinophils % 1.2 %; Hematocrit 26.8 % (35.3-44.9); Hemoglobin 8.1 g/dL (11.5-15.4); Immature Granulocytes % 0.4 % (0-4); Lymphocytes # 0.5 K/mcL (0.6-4.6); Lymphocytes % 6.5 %; Mean Corpuscular HGB Conc 30.2 g/dL (31.6-35.5); Mean Corpuscular Hemoglobin 31.3 pg (28.0-33.3); Mean Corpuscular Volume 103.5 fL (83.0-100.0); Mean Platelet Volume 11.2 fL (9.4-12.4); Monocytes # 0.8 K/mcL (0.0-1.3); Monocytes % 10.6 %; Neutrophils # 6.3 K/mcL (1.6-8.9); Platelet Count 264 K/mcL (140-400); Red Blood Count 2.59 M/mcL (3.82-4.97); Red Cell Distribution Width 16.6 % (11.5-14.5); Segmented Neutrophils % 81.2 %; White Blood Count 7.8 K/mcL (4.3-11.1)
[2022-06-15 18:26] LABS: INR 1.7; Prothrombin Time 18.7 Seconds (9.4-12.1)
[2022-06-15 18:52] LABS: BUN/Creatinine Ratio 11 (6-26); Blood Urea Nitrogen 7 mg/dL (8-23); Calcium 7.7 mg/dL (8.6-10.3); Carbon Dioxide 42 mEq/L (23-29); Carcinoembryonic Antigen 10.5 ng/mL (Less than 5.0); Chloride 89 mEq/L (98-107); Glucose 77 mg/dL (70-105); Osmolality,Calculated 279 (280-300); Potassium 3.1 mEq/L (3.5-5.1); Sodium 136 mEq/L (136-145)
[2022-06-15] MEDS: Mirtazapine 15 MG TABLET PO SCH (19:56)
[2022-06-16] MEDS: Insulin LISPRO 300 UNITS/3 ML VIAL SUBQ SCH ×5 (00:38→23:52)
[2022-06-16] MEDS: Budesonide/Formoterol 160/4.5 1 PUFF INH IH SCH ×2 (08:07→20:16)
[2022-06-16] MEDS: Metoprolol XL (24 HR) Succ 50 MG TAB.ER.24H PO SCH ×2 (09:10→21:33)
[2022-06-16] MEDS: Venlafaxine XR (24 HR) 75 MG CAP.ER.24H PO SCH (09:10)
[2022-06-16] MEDS: DilTIAZem CD (24hr) 180 MG CAP.ER.24H PO SCH (09:10)
[2022-06-16] MEDS: Bumetanide 1 MG TABLET PO SCH (09:10)
[2022-06-16] MEDS: Vancomycin Oral Soln 125 MG/2.5 ML UDC PO SCH ×4 (09:10→21:34)
[2022-06-16 09:11] LABS: Basophils % 0.4 %; Eosinophils # 0.1 K/mcL (0.0-0.6); Eosinophils % 1.6 %; Hematocrit 29.4 % (35.3-44.9); Hemoglobin 8.9 g/dL (11.5-15.4); Immature Granulocytes % 0.5 % (0-4); Lymphocytes # 0.7 K/mcL (0.6-4.6); Lymphocytes % 12.4 %; Mean Corpuscular HGB Conc 30.3 g/dL (31.6-35.5); Mean Corpuscular Hemoglobin 31.3 pg (28.0-33.3); Mean Corpuscular Volume 103.5 fL (83.0-100.0); Mean Platelet Volume 10.8 fL (9.4-12.4); Monocytes # 0.6 K/mcL (0.0-1.3); Monocytes % 10.2 %; Neutrophils # 4.2 K/mcL (1.6-8.9); Platelet Count 207 K/mcL (140-400); Red Blood Count 2.84 M/mcL (3.82-4.97); Red Cell Distribution Width 16.4 % (11.5-14.5); Segmented Neutrophils % 74.9 %; White Blood Count 5.6 K/mcL (4.3-11.1)
[2022-06-16 09:33] LABS: BUN/Creatinine Ratio 10 (6-26); Blood Urea Nitrogen 5 mg/dL (8-23); Carbon Dioxide 45 mEq/L (23-29); Chloride 91 mEq/L (98-107); Glucose 137 mg/dL (70-105); Osmolality,Calculated 287 (280-300); Potassium 2.5 mEq/L (3.5-5.1); Sodium 139 mEq/L (136-145)
[2022-06-16 09:39] LABS: INR 1.4; Prothrombin Time 15.7 Seconds (9.4-12.1)
[2022-06-16 17:39] LABS: Magnesium 1.3 mg/dL (1.6-2.6)
[2022-06-16] MEDS: Mirtazapine 15 MG TABLET PO SCH (21:33)
[2022-06-17 02:15] LABS: Basophils % 0.4 %; Eosinophils # 0.1 K/mcL (0.0-0.6); Eosinophils % 1.1 %; Hematocrit 27.7 % (35.3-44.9); Hemoglobin 8.2 g/dL (11.5-15.4); Immature Granulocytes % 0.2 % (0-4); Lymphocytes # 0.8 K/mcL (0.6-4.6); Lymphocytes % 9.5 %; Mean Corpuscular HGB Conc 29.6 g/dL (31.6-35.5); Mean Corpuscular Hemoglobin 30.6 pg (28.0-33.3); Mean Corpuscular Volume 103.4 fL (83.0-100.0); Mean Platelet Volume 11.1 fL (9.4-12.4); Monocytes # 0.8 K/mcL (0.0-1.3); Monocytes % 9.7 %; Neutrophils # 6.5 K/mcL (1.6-8.9); Platelet Count 222 K/mcL (140-400); Red Blood Count 2.68 M/mcL (3.82-4.97); Red Cell Distribution Width 16.4 % (11.5-14.5); Segmented Neutrophils % 79.1 %; White Blood Count 8.2 K/mcL (4.3-11.1)
[2022-06-17 02:21] LABS: INR 1.5; Prothrombin Time 16.4 Seconds (9.4-12.1)
[2022-06-17 02:47] LABS: BUN/Creatinine Ratio 13 (6-26); Blood Urea Nitrogen 7 mg/dL (8-23); Calcium 7.4 mg/dL (8.6-10.3); Carbon Dioxide 44 mEq/L (23-29); Chloride 92 mEq/L (98-107); Glucose 127 mg/dL (70-105); Osmolality,Calculated 290 (280-300); Potassium 3.3 mEq/L (3.5-5.1); Sodium 140 mEq/L (136-145)
[2022-06-17] MEDS: Insulin LISPRO 300 UNITS/3 ML VIAL SUBQ SCH ×4 (05:33→16:29)
[2022-06-17] MEDS: Budesonide/Formoterol 160/4.5 1 PUFF INH IH SCH ×2 (07:39→19:57)
[2022-06-17] MEDS: Venlafaxine XR (24 HR) 75 MG CAP.ER.24H PO SCH (07:59)
[2022-06-17] MEDS: Nystatin SUSP 5 ML UD.LIQ PO SCH ×4 (07:59→21:25)
[2022-06-17] MEDS: Vancomycin Oral Soln 125 MG/2.5 ML UDC PO SCH ×4 (08:00→21:25)
[2022-06-17] MEDS: DilTIAZem CD (24hr) 180 MG CAP.ER.24H PO SCH (08:00)
[2022-06-17] MEDS: Bumetanide 1 MG TABLET PO SCH (08:01)
[2022-06-17] MEDS: Metoprolol XL (24 HR) Succ 50 MG TAB.ER.24H PO SCH ×2 (08:03→21:25)
[2022-06-17] MEDS ORDERED: Insulin LISPRO 300 UNITS/3 ML VIAL SUBQ SCH (21:00)
[2022-06-17] MEDS: Mirtazapine 15 MG TABLET PO SCH (21:25)
[2022-06-18 02:58] LABS: Basophils % 0.3 %; Eosinophils # 0.1 K/mcL (0.0-0.6); Eosinophils % 0.9 %; Hematocrit 27.5 % (35.3-44.9); Hemoglobin 8.3 g/dL (11.5-15.4); Immature Granulocytes % 0.3 % (0-4); Lymphocytes # 1.1 K/mcL (0.6-4.6); Lymphocytes % 8.9 %; Mean Corpuscular HGB Conc 30.2 g/dL (31.6-35.5); Mean Corpuscular Hemoglobin 30.7 pg (28.0-33.3); Mean Corpuscular Volume 101.9 fL (83.0-100.0); Mean Platelet Volume 11.2 fL (9.4-12.4); Monocytes # 0.9 K/mcL (0.0-1.3); Monocytes % 7.5 %; Neutrophils # 9.7 K/mcL (1.6-8.9); Platelet Count 222 K/mcL (140-400); Red Cell Distribution Width 16.3 % (11.5-14.5); Segmented Neutrophils % 82.1 %; White Blood Count 11.8 K/mcL (4.3-11.1)
[2022-06-18 03:10] LABS: INR 1.4; Prothrombin Time 15.7 Seconds (9.4-12.1)
[2022-06-18 03:27] LABS: BUN/Creatinine Ratio 11 (6-26); Blood Urea Nitrogen 7 mg/dL (8-23); Calcium 7.4 mg/dL (8.6-10.3); Carbon Dioxide > 45 mEq/L (23-29); Chloride 86 mEq/L (98-107); Glucose 182 mg/dL (70-105); Osmolality,Calculated 285 (280-300); Potassium 3.6 mEq/L (3.5-5.1); Sodium 136 mEq/L (136-145)
[2022-06-18] MEDS: Insulin LISPRO 300 UNITS/3 ML VIAL SUBQ SCH ×3 (07:24→17:47)
[2022-06-18 07:48] LABS: Magnesium 1.3 mg/dL (1.6-2.6)
[2022-06-18] MEDS: Budesonide/Formoterol 160/4.5 1 PUFF INH IH SCH (07:50)
[2022-06-18] MEDS ORDERED: Magnesium Oxide 400 MG TABLET PO SCH (09:00)
[2022-06-18] MEDS: Vancomycin Oral Soln 125 MG/2.5 ML UDC PO SCH ×3 (09:08→17:50)
[2022-06-18] MEDS: Metoprolol XL (24 HR) Succ 50 MG TAB.ER.24H PO SCH (09:09)
[2022-06-18] MEDS: DilTIAZem CD (24hr) 180 MG CAP.ER.24H PO SCH (09:09)
[2022-06-18] MEDS: Venlafaxine XR (24 HR) 75 MG CAP.ER.24H PO SCH (09:09)
[2022-06-18] MEDS: Nystatin SUSP 5 ML UD.LIQ PO SCH ×3 (09:10→17:50)
[2022-06-18] MEDS: Fluconazole 150 MG TABLET PO SCH ×2 (09:12→11:44)
[2022-06-18 10:17] VITALS: BP 99/56; PULSE 81; TEMP 98.9; O2SAT 97
[2022-06-18 15:25] LABS: Influenza A PCR Negative (Negative); Influenza B PCR Negative (Negative); Resp. Syncytial Virus PCR Negative (Negative); SARS-CoV-2 by PCR (In House) Negative (Negative)
== END 2022-06-18 19:02 | DRG 291 ==
LOC: EMEROOARM 16:08 → 2NENU 16:08 → SUATTDRO 06-06 14:38 → 2NENU 06-06 15:08 → SUATTDRO 06-07 14:14
PROVIDERS: ADMIT Internal Medicine; ATTEND Student in an Organized Health Care Education/Training Program
PROC: ENDOCBX (2022-06-13 13:00)